=== PATIENT | male | born 1955 | race Caucasian/White ===

== ENCOUNTER 2022-04-27 19:10 | Observation (INO) | payer OTHER ==
[2022-04-27] MEDS ORDERED: ASPIRIN 81 MG CHEWABLE TABLET ONE (19:25)
[2022-04-27] MEDS ORDERED: NA CHLORIDE 0.9% 1,000 ML ONE (19:25)
[2022-04-27 20:10] LABS: Protime INR 1.11
[2022-04-27 20:12] LABS: Absolute Lymphocytes (CBC) 1.4 K/uL (0.7-4.9); Hematocrit 49.3 % (39.6-49.0); Lymphocytes % 16.7 % (15.3-44.8); MCV 94.8 fL (80-100); MPV 7.7 fL (7.6-11.3); RBC Red Blood Cell Count 5.19 M/uL (4.33-5.43)
[2022-04-27 20:14] LABS: SARS-CoV-2 Antigen Rapid Res Negative (Negative)
[2022-04-27 20:21] LABS: Albumin 3.7 g/dL (3.4-5.0); Bilirubin Direct 0.2 mg/dL (0-0.2); Bilirubin Total 0.7 mg/dL (0.2-1.0); Magnesium 2.1 mg/dL (1.8-2.4); Potassium 3.6 mmol/L (3.5-5.1); Troponin High Sensitivity 20.1 pg/mL (<58.9)
[2022-04-27] MEDS ORDERED: Magnesium Sulfate 2gm IVPB 2 G/50 ML BAG IV ONE (21:02)
--- NOTE | 2022-04-27 21:11 | RAD REPORT ---
EXAM DESCRIPTION: RAD - Chest Single View - 04/27/2022 9:04 pm CLINICAL HISTORY: CHEST PAIN Chest pain. COMPARISON: No comparisons FINDINGS: Portable technique limits examination quality. The lungs are grossly clear. The heart is mildly prominent in size. No displaced fractures.Sternotomy wires. Single lead pacer/defibrillator device noted. IMPRESSION: No acute intrathoracic process suspected.
--- NOTE | 2022-04-27 21:30 | ER ---
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 Coronavirus screen: Vaccine status: Patient reports receiving the 2nd dose of the covid vaccine. Client denies travel out of the [place] in the last 14 days. Ebola Screen: Patient negative for fever greater than or equal to 101.5 degrees Fahrenheit, and additional compatible Ebola Virus Disease symptoms Patient denies exposure to infectious person. Patient denies travel to an Ebola-affected area in the 21 days before illness onset. Initial Sepsis Screen: Does the patient meet any 2 criteria? No. Patient's initial sepsis screen is negative. Does the patient have a suspected source of infection? No. Patient's initial sepsis screen is negative. Risk Assessment: Do you want to hurt yourself or someone else? Patient reports no desire to harm self or others. Onset of symptoms was April 27, 2022. 19:13 Method Of Arrival: Ambulatory [facility] 19:13 Acuity: COOPER 2 jh5 Triage Assessment: 19:15 General: Appears in no apparent distress. uncomfortable, slender, well groomed, [facility] Behavior is calm, cooperative, appropriate for age. Pain: Denies pain. Historical: - Allergies: 19:15 No Known Allergies; jh5 - PMHx: 19:15 Hypertensive disorder; defibrillator / pacemaker; HLD; jh5 - Immunization history:: Adult Immunizations up to date. - Social history:: Smoking status: Patient denies any tobacco usage or history of. - Family history:: not pertinent. Screenin:43 Abuse screen: Denies threats or abuse. Denies injuries from another. Nutritional lg3 screening: No deficits noted. Tuberculosis screening: No symptoms or risk factors identified. Fall Risk None identified. Assessment: 19:43 General: Appears in no apparent distress. comfortable, Behavior is calm, cooperative. lg3 Pain: Denies pain. Neuro: No deficits noted. Level of Consciousness is awake, alert, obeys commands, Oriented to person, place, time, situation, Gait is steady, Speech is normal, Facial symmetry appears normal. Cardiovascular: Reports felling "off/funny" Denies chest pain, Capillary refill < 3 seconds Clubbing of nail beds is absent JVD is absent Patient's skin is warm and dry. Rhythm is sinus rhythm. Respiratory: No deficits noted. Airway is patent Trachea midline Respiratory effort is even, unlabored, Respiratory pattern is regular, symmetrical, Breath sounds are clear bilaterally. GI: No deficits noted. No signs and/or symptoms were reported involving the gastrointestinal system. Bowel sounds present X 4 quads. : No deficits noted. No signs and/or symptoms were reported regarding the genitourinary system. EENT: No deficits noted. No signs and/or symptoms were reported regarding the EENT system. Derm: No deficits noted. No signs and/or symptoms reported regarding the dermatologic system. Skin is intact, is healthy with good turgor, Skin is dry, Skin is normal, Skin temperature is warm. Musculoskeletal: No deficits noted. No signs and/or symptoms reported regarding the musculoskeletal system. Circulation, motion, and sensation intact. Range of motion: intact in all extremities. 21:09 Reassessment: Patient appears in no apparent distress at this time. No changes from lg3 previously documented assessment. Patient and/or family updated on plan of care and expected duration. Pain level reassessed. Patient is alert, oriented x 3, equal unlabored respirations, skin warm/dry/pink. Vital Signs: 19:13 BP 173 / 102; Pulse 76; Resp 18; Temp 98.6; Pulse Ox 100% ; Weight 81.65 kg; Height 5 [facility] ft. 2 in. (157.48 cm); Pain 0/10; 19:46 BP 159 / 85; Pulse 70; Resp 16 S; Pulse Ox 99% on R/A; lg3 21:09 BP 129 / 82; Pulse 70; Resp 18 S; Pulse Ox 99% on R/A; lg3 19:13 Body Mass Index 32.92 (81.65 kg, 157.48 cm) jh5 ED Course: 19:13 Patient arrived in ED. dt4 19:15 Triage completed. 5 19:15 Arm band placed on right wrist. [facility] 19:21 Abdulkadir Valerio MD is Attending Physician. [facility] 19:43 Patient has correct armband on for positive identification. Placed in gown. Bed in low lg3 position. Call light in reach. Side rails up X 1. Client placed on continuous cardiac and pulse oximetry monitoring. NIBP monitoring applied. shelter monitor on. Door closed. Noise minimized. Warm blanket given. Family accompanied patient. 21:08 Taylor Leon, RN is Primary Nurse. lg3 21:08 Inserted saline lock: 20 gauge in right wrist, using aseptic technique. Blood collected.3 21:26 Reinaldo Reddy MD is Hospitalizing Provider. [facility] 23:06 No provider procedures requiring assistance completed. Patient admitted, IV remains in lg3 place. intact, No redness/swelling at site. Administered Medications: 19:47 Drug: Aspirin Chewable Tablet 324 mg Route: PO; lg3 21:08 Drug: NS 0.9% 1000 ml Route: IV; Rate: 75 ml/hr; Site: right wrist; lg3 21:08 Drug: Magnesium Sulfate 2 grams Route: IVPB; Infused Over: 2 hrs; Site: right wrist; lg3 Medication: 23:07 VIS not applicable for this client. lg3 Outcome: 21:29 Decision to Hospitalize by Provider. [facility] 23:06 Admitted to ER Hold. Please see [facility] for further documentation. lg3 23:06 Condition: stable 23:06 Instructed on the need for admit, Demonstrated understanding of instructions. 04/28 09:45 Patient left the ED. mb8 Signatures: Abdulkadir Valerio MD MD cha Gibson, Lacie, RN RN 3 Keri Bocanegra, RN RN 5 Cornelius Cardenas RN RN mb8 Eboni Rogers dt4
--- NOTE | 2022-04-27 21:30 | EDPHYS ---
Physician Documentation [facility] Name: Sacha Jones Age: 66 yrs Sex: Male : 1955 Arrival Date: 04/27/2022 Time: 19: Bed 18 Private MD: ED Physician Abdulkadir Valerio HPI: 04/27 21:21 This 66 yrs old Male presents to ER via Ambulatory with complaints of Chest makayla Pain. 21:21 The patient or guardian reports chest pain that is located primarily in the substernal makayla area, defibrillator discharge. Onset: just prior to arrival. The pain does not radiate. Associated signs and symptoms: Pertinent positives: dizziness. The chest pain is described as aching. Modifying factors: The symptoms are alleviated by nothing. the symptoms are aggravated by nothing. Severity of pain: At its worst the pain was mild in the emergency department the pain is unchanged. The patient has not experienced similar symptoms in the past. Historical: - Allergies: 19:15 No Known Allergies; jh5 - PMHx: 19:15 Hypertensive disorder; defibrillator / pacemaker; HLD; 5 - Immunization history:: Adult Immunizations up to date. - Social history:: Smoking status: Patient denies any tobacco usage or history of. - Family history:: not pertinent. ROS: 21:21 Constitutional: Negative for fever, chills, and weight loss, Eyes: Negative for injury, makayla pain, redness, and discharge, ENT: Negative for injury, pain, and discharge, Neck: Negative for injury, pain, and swelling, Cardiovascular: Negative for chest pain, palpitations, and edema, Respiratory: Negative for shortness of breath, cough, wheezing, and pleuritic chest pain, Abdomen/GI: Negative for abdominal pain, nausea, vomiting, diarrhea, and constipation, Back: Negative for injury and pain, : Negative for injury, bleeding, discharge, and swelling, MS/Extremity: Negative for injury and deformity, Skin: Negative for injury, rash, and discoloration, Psych: Negative for depression, anxiety, suicide ideation, homicidal ideation, and hallucinations, Allergy/Immunology: Negative for hives, rash, and allergies, Endocrine: Negative for neck swelling, polydipsia, polyuria, polyphagia, and marked weight changes, Hematologic/Lymphatic: Negative for swollen nodes, abnormal bleeding, and unusual bruising. 21:21 Neuro: Positive for dizziness. Exam: 21:21 Constitutional: This is a well developed, well nourished patient who is awake, alert, makayla and in no acute distress. Head/Face: Normocephalic, atraumatic. Eyes: Pupils equal round and reactive to light, extra-ocular motions intact. Lids and lashes normal. Conjunctiva and sclera are non-icteric and not injected. Cornea within normal limits. Periorbital areas with no swelling, redness, or edema. ENT: Nares patent. No nasal discharge, no septal abnormalities noted. Tympanic membranes are normal and external auditory canals are clear. Oropharynx with no redness, swelling, or masses, exudates, or evidence of obstruction, uvula midline. Mucous membranes moist. Neck: Trachea midline, no thyromegaly or masses palpated, and no cervical lymphadenopathy. Supple, full range of motion without nuchal rigidity, or vertebral point tenderness. No Meningismus. Chest/axilla: Normal chest wall appearance and motion. Nontender with no deformity. No lesions are appreciated. Cardiovascular: Regular rate and rhythm with a normal S1 and S2. No gallops, murmurs, or rubs. Normal PMI, no JVD. No pulse deficits. Respiratory: Lungs have equal breath sounds bilaterally, clear to auscultation and percussion. No rales, rhonchi or wheezes noted. No increased work of breathing, no retractions or nasal flaring. Abdomen/GI: Soft, non-tender, with normal bowel sounds. No distension or tympany. No guarding or rebound. No evidence of tenderness throughout. Back: No spinal tenderness. No costovertebral tenderness. Full range of motion. Male : Normal genitalia with no discharge or lesions. Skin: Warm, dry with normal turgor. Normal color with no rashes, no lesions, and no evidence of cellulitis. MS/ Extremity: Pulses equal, no cyanosis. Neurovascular intact. Full, normal range of motion. Neuro: Awake and alert, GCS 15, oriented to person, place, time, and situation. Cranial nerves II-XII grossly intact. Motor strength 5/5 in all extremities. Sensory grossly intact. Cerebellar exam normal. Normal gait. Psych: Awake, alert, with orientation to person, place and time. Behavior, mood, and affect are within normal limits. 21:41 ECG was reviewed by the Attending Physician. makayla 04/28 06:04 ECG was reviewed by the Attending Physician. [facility] Vital Signs: 04/27 19:13 BP 173 / 102; Pulse 76; Resp 18; Temp 98.6; Pulse Ox 100% ; Weight 81.65 kg; Height 5 5 ft. 2 in. (157.48 cm); Pain 0/10; 19:46 BP 159 / 85; Pulse 70; Resp 16 S; Pulse Ox 99% on R/A; lg3 21:09 BP 129 / 82; Pulse 70; Resp 18 S; Pulse Ox 99% on R/A; lg3 19:13 Body Mass Index 32.92 (81.65 kg, 157.48 cm) 5 MDM: 19:21 Patient medically screened. [facility] 21:23 Differential diagnosis: abnormal EKG, acute myocardial infarction, acute pericarditis, makayla anxiety, chest wall pain, Cholelithiasis hiatal hernia, pancreatitis, peptic ulcer disease, pericarditis, stable angina, unstable angina. HEART Score: History: Slightly Suspicious (0), ECG: Non specific repolarization disturbance / LBTB / PM (1), Age: > or = 65 years (2), Risk Factors: > or = 3 Risk factors for atherosclerotic disease (2), [Hypercholesterolemia] [Hypertension] [+ Family HX] Troponin: < or = 1 x Normal Limit (0). The patient was given aspirin in the Emergency Department. The patient's deep vein thrombosis risk score was calculated as follows: Total Score: 0. This patient was found to be at low risk for a deep vein thrombosis by using the Well's assessment criteria. The patient's pulmonary embolism risk score was calculated as follows: Total Score: 0-2 points. This patient was found to be at low risk for a pulmonary embolism by using the Well's assessment criteria. BRENDA Risk Score: 1 - patient's age is greater or equal to 65 years, 1 - Three or more CAD risk factors, 1- Known CAD, 1 - ASA use in past 7 days, TOTAL SCORE = 4. Data reviewed: vital signs, nurses notes, lab test result(s), EKG, radiologic studies, plain films. Data interpreted: environmental monitoring technician: rate is 70 beats/min, rhythm is regular, Pulse oximetry: on room air is 99 %. Test interpretation: by ED physician or midlevel provider: ECG, plain radiologic studies. Counseling: I had a detailed discussion with the patient and/or guardian regarding: the historical points, exam findings, and any diagnostic results supporting the discharge/admit diagnosis, lab results, radiology results, the need for further work-up and treatment in the hospital. Physician consultation: Sagar Nuno MD and will see patient in inpatient room, interrogate in am ok. 04/27 19:22 Order name: Basic Metabolic Panel; Complete Time: 21:00 [facility] 04/27 19:22 Order name: CBC with Diff; Complete Time: 21:00 [facility] 04/27 19:22 Order name: LFT's; Complete Time: 21:00 [facility] 04/27 19:22 Order name: Magnesium; Complete Time: 21:00 [facility] 04/27 19:22 Order name: NT PRO-BNP; Complete Time: 21:00 [facility] 04/27 19:22 Order name: PT-INR; Complete Time: 21:00 [facility] 04/27 19:22 Order name: Troponin HS; Complete Time: 21:00 [facility] 04/27 19:22 Order name: XRAY Chest (1 view) [facility] 04/27 19:22 Order name: SARS RAPID; Complete Time: 21:00 [facility] 04/27 19:22 Order name: Lipase; Complete Time: 21:00 [facility] 04/27 21:11 Order name: RAD; Complete Time: 21:29 [facility] 04/28 04:37 Order name: CBC with Automated Diff [facility] 04/28 04:54 Order name: Basic Metabolic Panel [facility] 04/28 07:20 Order name: RAD [facility] 04/27 19:22 Order name: EKG; Complete Time: 19:24 [facility] 04/27 19:22 Order name: Cardiac monitoring; Complete Time: 19:46 [facility] 04/27 19:22 Order name: EKG - Nurse/Tech; Complete Time: 19:46 [facility] 04/27 19:22 Order name: IV Saline Lock; Complete Time: 19:46 [facility] 04/27 19:22 Order name: Labs collected and sent; Complete Time: 19:47 [facility] 04/27 19:22 Order name: O2 Per Protocol; Complete Time: 19:47 [facility] 04/27 19:22 Order name: O2 Sat Monitoring; Complete Time: 19:47 [facility] EC:41 Rate is 67 beats/min. Rhythm is regular. QRS [place] is Normal. NM interval is prolonged makayla at 228 msec. QRS interval is normal. QT interval is normal. No Q waves. T waves are Normal. No ST changes noted. Clinical impression: NSR w/ Non-specific ST/T Changes, 1st degree heart block, and No evidence of ischemia. Interpreted by me. Reviewed by me. 04/28 06:04 Rate is 52 beats/min. Rhythm is regular. QRS [place] is Normal. NM interval is normal. QRS makayla interval is normal. QT interval is normal. No Q waves. T waves are Normal. No ST changes noted. Clinical impression: 1st degree heart block and Sinus bradycardia. Interpreted by me. Reviewed by me. Administered Medications: 04/27 19:47 Drug: Aspirin Chewable Tablet 324 mg Route: PO; lg3 21:08 Drug: NS 0.9% 1000 ml Route: IV; Rate: 75 ml/hr; Site: right wrist; lg3 21:08 Drug: Magnesium Sulfate 2 grams Route: IVPB; Infused Over: 2 hrs; Site: right wrist; lg3 Disposition Summary: 04/27/22 21:29 Hospitalization Ordered Hospitalization Status: Observation makayla Provider: Reinaldo Reddy makayla Condition: Fair makayla Problem: new makayla Symptoms: have improved makayla Bed/Room Type: Standard makayla Location: [facility] ER HOLD(04/27/22 22:13) Room Assignment: ERHOLD-(04/27/22 22:13) cg Diagnosis - Presence of cardiac pacemaker - defibrillator discharged x1 makayla - Chronic kidney disease, unspecified makayla - Encounter for adjustment and management of automatic implantable cardiac makayla defibrillator - Presence of automatic (implantable) cardiac defibrillator makayla Forms: - Medication Reconciliation Form makayla - SBAR form makayla Signatures: Dispatcher [employer] Abdulkadir Cool MD MD cha Garcia, Cindy, RN RN Taylor Helms RN RN lg3 Keri Bocanegra RN RN jh5 Corrections: (The following items were deleted from the chart) 21:29 Telemetry/MedSurg (observation) makayla : 21:29 makayla
[2022-04-27] MEDS ORDERED: ACETAMINOPHEN 325 MG TABLET PO PRN (23:09)
[2022-04-27] MEDS ORDERED: MORPHINE 2 MG/ML SYR IV PRN (23:09)
[2022-04-27] MEDS ORDERED: ONDANSETRON 4 MG/2 ML VIAL IV PRN (23:09)
[2022-04-27 23:23] VITALS: BMI 32.9
[2022-04-28 00:14] VITALS: O2SAT 100
[2022-04-28] MEDS ORDERED: carvediloL 6.25 MG TAB ONE (04:16)
[2022-04-28 04:36] LABS: Absolute Lymphocytes (CBC) 1.8 K/uL (0.7-4.9); Hematocrit 45.2 % (39.6-49.0); Lymphocytes % 23.5 % (15.3-44.8); MPV 7.2 fL (7.6-11.3); RBC Red Blood Cell Count 4.71 M/uL (4.33-5.43)
[2022-04-28 04:54] LABS: Potassium 3.5 mmol/L (3.5-5.1)
[2022-04-28] MEDS ORDERED: carvediloL 12.5 MG TAB PO SCH (06:00)
--- NOTE | 2022-04-28 07:20 | RAD REPORT ---
EXAM DESCRIPTION: RAD - Chest Single View - 04/28/2022 5:44 am CLINICAL HISTORY: Chest Pain COMPARISON: <Comparisons> FINDINGS: Lines: Pacemaker. . Lungs: No evidence of edema or pneumonia. Pleural: No significant pleural effusions or pneumothorax. Cardiac: Similar size and configuration. Mediastinum: Within normal limits. Bones: No acute fractures.Sternotomy Other: None IMPRESSION: No acute cardiopulmonary disease.
[2022-04-28] MEDS ORDERED: PNEUMOCOCCAL VACCINE 0.5 ML IMVAC ONE (08:00)
[2022-04-28 08:19] VITALS: BP 131/73; TEMP 97.9
[2022-04-28] MEDS ORDERED: ASPIRIN 81 MG CHEWABLE TABLET PO SCH (09:00)
[2022-04-28] MEDS ORDERED: AMIODARONE HCL 200 MG TAB PO SCH (09:00)
[2022-04-28] MEDS ORDERED: SACUBITRIL/VALSARTAN 49/51 MG TAB PO SCH (09:00)
[2022-04-28] MEDS ORDERED: ASPIRIN EC 81 MG TAB PO SCH (09:00)
[2022-04-28] MEDS ORDERED: FAMOTIDINE 20 MG/2 ML VIAL IV SCH (09:00)
--- NOTE | 2022-04-28 11:39 | EKG ---
Test Date: 2022-04-28 Test Time: 05:44:51 Welder Apprentice: DEZ MEASUREMENT RESULTS: Intervals: Rate: 52 MI: 240 QRSD: 148 QT: 510 QTc: 474 [place]: P: 66 MI: 240 QRS: -2 T: -80 INTERPRETIVE STATEMENTS: Sinus bradycardia with 1st degree AV block Nonspecific intraventricular block Abnormal ECG Compared to ECG 04/27/2022 19:38:28 Sinus rhythm no longer present Electronically Signed On 04-28-22 11:38:45 CDT by Sagar Nuno
--- NOTE | 2022-04-28 11:41 | EKG ---
Test Date: 2022-04-27 Test Time: 19:38:28 Medical Anthropology Director: SINDI MEASUREMENT RESULTS: Intervals: Rate: 67 SD: 228 QRSD: 164 QT: 440 QTc: 464 [place]: P: 68 SD: 228 QRS: -18 T: 78 INTERPRETIVE STATEMENTS: Sinus rhythm with 1st degree AV block Nonspecific intraventricular block Abnormal ECG No previous ECG available for comparison Electronically Signed On 04-28-22 11:38:52 CDT by Sagar Nuno
--- NOTE | 2022-04-28 13:50 | P.SSS ---
Patient History Date of Service: 04/28/22 Reason for admission: DEFIB SHOCK History of Present Illness: MR. OTTO HAS HAD V TACHYCARDIA AND D FIB SHOCK AFTER HE ATE [employer]. THIS HAS HAPPENED BEFORE. HE WILL NOW QUIT [employer]. HE WILL FU WITH DR. BHATTI. HE RAISED HIS AMIODARONE AND COREG. HE IS STABLE FOR DISCHARGE. Allergies No Known Allergies Allergy (Verified 04/27/22 23:09) Home Medications: Amiodarone HCl [Cordarone*] 200 mg PO DAILY #30 tab 04/28/22 Sacubitril/Valsartan [Entresto 49 mg-51 mg Tablet] 1 tab PO BID tab 04/28/22 carvediloL [Coreg*] 12.5 mg PO BID 6AM 6PM #180 tab 04/28/22 - Past Medical/Surgical History Has patient received pneumonia vaccine in the past: No - Social History Smoking Status: Never smoker Alcohol use: No CD- Drugs: No Caffeine use: No Place of Residence: Home Physical Examination - Vital Signs Temperature: 97.9 F Blood Pressure: 131/73 Pulse: 57 Respirations: 20 Pulse Ox (%): 93 - Physical Exam General: Alert, In no apparent distress HEENT: Atraumatic, PERRLA, Mucous membr. moist/pink, EOMI, Sclerae nonicteric Neck: Supple, 2+ carotid pulse no bruit, No LAD, Without JVD or thyroid abnormality Respiratory: Clear to auscultation bilaterally, Normal air movement Cardiovascular: Regular rate/rhythm, Normal S1 S2 Gastrointestinal: Normal bowel sounds, No tenderness Musculoskeletal: No tenderness Integumentary: No rashes Neurological: Normal gait, Normal speech, Normal strength at 5/5 x4 extr, Normal tone, Normal affect Lymphatics: No axilla or inguinal lymphadenopathy - Studies Laboratory Data (last 24 hrs) 04/27/22 19:45: PT 12.2, INR 1.11 04/27/22 19:45: WBC 8.10, Hgb 16.9, Hct 49.3 H, Plt Count 185 04/27/22 19:45: Sodium 139, Potassium 3.6, BUN 26 H, Creatinine 2.08 H, Glucose 103, Magnesium 2.1, Total Bilirubin 0.7, AST 20, ALT 32, Alkaline Phosphatase 58, Lipase 96 - Diagnosis (Problem(s)) (1) Defibrillator discharge Current Visit: Yes Status: Acute Plan: ABOVE HEIS STABLE. MEDS CHANGED. QUIT ALL [employer]ODUCTS. SOMEHOW IT IS TRIGGERING HIS v TACH. - Disposition Disposition: ROUTINE DISCHARGE Condition: FAIR
[2022-04-29] MEDS ORDERED: FAMOTIDINE 20 MG/2 ML VIAL IV SCH (09:00)
--- NOTE | 2022-04-30 15:58 | CON ---
Date of Consultation: 04/28/2022 Reason For Consultation: AICD discharge. History Of Present Illness: Mr. Hook is 66. Has a history of AICD placement, came in with vaarg e. Did not have any chest pain prior to the event. Did not have any syncope after the event. Did n ot have any nausea or vomiting or diaphoresis. Denied PND, orthopnea, palpitation, or syncope. He s aid this is the second time this has happened to him after eating [employer]. He is now asymptomatic. Past Medical History: Includes hypertension, dyslipidemia, AICD. Review of Systems: Negative. Social History: Negative. Allergies: NONE. Medications: Include amiodarone and Coreg. Physical Examination: Vital Signs: His pulse was 47. Vital signs stable General: No acute distress. HEENT: Negative. Neck: Supple with no bruit. Chest: Clear. Cardiac: Revealed regular rhythm and rate. No murmurs, gallops, or rubs. Abdomen: Benign. Extremities: Revealed no clubbing, cyanosis, or edema. Diagnostic Data: All within normal. Chest x-ray is negative. Impression And Plan: 1.Hypertension. 2.Dyslipidemia. 3.Status post AICD discharge. I would increase his amiodarone, increase his Coreg, check the defibr illator, I am sure this is probably ventricular tachycardia. Hopefully, the increase in amiodarone a nd Coreg would help. He can go home after checking his AICD and I will see him in the office soon. JENNIFER/PATRICE Voice ID: [id number] Report ID: [id number]
== END 2022-04-29 00:09 | disposition home or self-care (01) ==
LOC: ER 19:10 → ERHOLD 21:31
PROVIDERS: ADMIT Internal Medicine; ATTEND Internal Medicine
DX: I47.20 Ventricular tachycardia, unspecified (principal); N18.9 Chronic kidney disease, unspecified; I10 Essential (primary) hypertension; E78.5 Hyperlipidemia, unspecified; Z20.822 Contact with and (suspected) exposure to COVID-19; Z95.810 Presence of automatic (implantable) cardiac defibrillator
CPT/HCPCS: 36415; 71045; 80048; 80076; 83690; 83735; 83880; 84484; 85025; 85610; 87811; 93005; 96374; 99285; G0378; J3475; J7030

== ENCOUNTER 2022-05-03 17:41 | Observation (INO) | payer OTHER, MEDICARE ==
[2022-05-03 18:44] LABS: Albumin 3.7 g/dL (3.4-5.0); Bilirubin Direct 0.3 mg/dL (0-0.2); Bilirubin Total 1.1 mg/dL (0.2-1.0); Magnesium 1.9 mg/dL (1.8-2.4); Potassium 3.6 mmol/L (3.5-5.1); Troponin High Sensitivity 16.2 pg/mL (<58.9)
[2022-05-03] MEDS ORDERED: ASPIRIN 81 MG CHEWABLE TABLET ONE (18:44)
[2022-05-03 18:51] LABS: Absolute Lymphocytes (CBC) 1.3 K/uL (0.7-4.9); Hematocrit 49.5 % (39.6-49.0); Lymphocytes % 11.2 % (15.3-44.8); MCV 95.4 fL (80-100); MPV 7.6 fL (7.6-11.3); RBC Red Blood Cell Count 5.19 M/uL (4.33-5.43)
--- NOTE | 2022-05-03 18:51 | RAD REPORT ---
EXAM DESCRIPTION: RAD - Chest Single View - 05/03/2022 6:44 pm CLINICAL HISTORY: CHEST PAIN Chest pain. COMPARISON: Chest Single View dated 04/28/2022; Chest Single View dated 04/27/2022 FINDINGS: Portable technique limits examination quality. The lungs are grossly clear. The heart is mildly prominent with changes of a prior CABG. No displaced fractures.Sternotomy wires. IMPRESSION: No acute intrathoracic process suspected.
[2022-05-03 19:12] LABS: Protime INR 0.8
--- NOTE | 2022-05-03 20:40 | ER ---
Nurse's Notes [facility] Name: Sacha Jones Age: 66 yrs Sex: Male : 1955 Arrival Date: 05/03/2022 Time: 17:45 Bed 30 Private MD: Diagnosis: Chest pain, unspecified;Hypertensive heart disease without heart failure Presentation: 05/03 17:45 Chief complaint: EMS states: CHEST PRESSURE AND HTN. Coronavirus screen: At this time, bp the client does not indicate any symptoms associated with coronavirus-19. Ebola Screen: No symptoms or risks identified at this time. Initial Sepsis Screen: Does the patient meet any 2 criteria? No. Patient's initial sepsis screen is negative. Does the patient have a suspected source of infection? No. Patient's initial sepsis screen is negative. Risk Assessment: Do you want to hurt yourself or someone else? Patient reports no desire to harm self or others. Onset of symptoms was May 03, 2022 at 16:00. Care prior to arrival: IV initiated. 18 GA, in the left antecubital area. 17:45 Method Of Arrival: EMS: [facility] bp 17:45 Acuity: COOPER 2 bp Triage Assessment: 17:46 General: Appears in no apparent distress. uncomfortable, Behavior is cooperative, bp appropriate for age, anxious. Pain: Complains of pain in chest. EENT: No deficits noted. Neuro: No deficits noted. Cardiovascular: Rhythm is sinus rhythm. Respiratory: No deficits noted. GI: No signs and/or symptoms were reported involving the gastrointestinal system. : No signs and/or symptoms were reported regarding the genitourinary system. Derm: No deficits noted. Musculoskeletal: No deficits noted. Historical: - Allergies: 17:46 No Known Allergies; bp - Home Meds: 17:46 aspirin 81 mg Oral tab 81 mg daily [Active]; amiodarone 200 mg Oral tab 1 tab once bp daily [Active]; carvedilol 12.5 mg oral tab 1 tab 2 times per day [Active]; hydralazine 25 mg Oral tab 1 tab 2 times per day [Active]; simvastatin 10 mg Oral tab 1 tab once daily [Active]; eplerenone 25 mg oral tab 1 tab once daily [Active]; Entresto 97-103 mg oral tab 1 tab 2 times per day [Active]; - PMHx: 17:46 defibrillator / pacemaker; HLD; Hypertensive disorder; bp - Immunization history:: Adult Immunizations up to date. - Social history:: Smoking status: Patient denies any tobacco usage or history of. Screenin:49 Abuse screen: Denies threats or abuse. Denies injuries from another. Nutritional bp screening: No deficits noted. Tuberculosis screening: No symptoms or risk factors identified. Fall Risk None identified. Assessment: 17:49 General: SEE TRIAGE NOTE. bp 19:00 Reassessment: No changes from previously documented assessment. Patient and/or family bp updated on plan of care and expected duration. Pain level reassessed. 20:02 Reassessment: No changes from previously documented assessment. Patient and/or family vc1 updated on plan of care and expected duration. Pain level reassessed. 20:27 General: "I'm feeling better. everything seems normal" . as6 Vital Signs: 17:45 BP 192 / 89; Pulse 75; Resp 16; Temp 98.1; Pulse Ox 100% ; bp 19:00 BP 131 / 75; Pulse 65; Resp 16; Pulse Ox 100% ; bp 20:01 BP 118 / 77; Pulse 66; Resp 12; Pulse Ox 98% on R/A; vc1 20:27 BP 116 / 71; Pulse 65; Resp 17 S; Pulse Ox 100% on R/A; as6 21:46 BP 131 / 82; Pulse 67; Resp 12 S; Pulse Ox 97% on R/A; as6 ED Course: 17:45 Patient arrived in ED. bp 17:46 Triage completed. bp 17:46 Arm band placed on. bp 17:47 Abdulkadir Cuevas PA is PHCP. cp 17:47 Abdulkadir Valerio MD is Attending Physician. cp 17:49 Patient has correct armband on for positive identification. Bed in low position. Call bp light in reach. Side rails up X2. Client placed on continuous cardiac and pulse oximetry monitoring. NIBP monitoring applied. 17:49 Maintain EMS IV. Dressing intact. Good blood return noted. Site clean \\T\\ dry. Gauge \\T\\ bp site: 18 GA LEFT AC. Patient maintains SpO2 saturation greater than 95% on room air. 17:50 Roberto Sosa, GEORGIE is Primary Nurse. bp 18:46 XRAY Chest (1 view) In Process Unspecified. EDMS 19:05 Primary Nurse role handed off by Roberto Sosa, GEORGIE mw2 20:27 Shawn Avina, GEORGIE is Primary Nurse. as6 20:38 Reinaldo Reddy MD is Hospitalizing Provider. cp 05/04 00:19 No provider procedures requiring assistance completed. Patient admitted, IV remains in as6 place. 08:10 Primary Nurse role handed off by Shawn Avina, GEORGIE em1 Administered Medications: 05/03 18:45 Drug: Aspirin Chewable Tablet 324 mg Route: PO; bp 05/04 00:20 Follow up: Response: No adverse reaction as6 05/03 20:43 CANCELLED (Physician Discretion): HydrALAZINE 50 mg PO once cp 20:44 Drug: HydrALAZINE 25 mg Route: PO; vc1 05/04 00:20 Follow up: Response: No adverse reaction as6 Medication: 05/03 17:49 VIS not applicable for this client. bp Outcome: 20:38 Decision to Hospitalize by Provider. cp 05/04 00:19 Admitted to ER Hold. Please see [facility] for further documentation. as6 Condition: stable Instructed on the need for admit. 11:07 Patient left the ED. em1 Signatures: Dispatcher [employer] [facility] Samuel Hall em1 Abdulkadir Cuevas PA PA cp Roberto Sosa, RN RN bp Zoie Archuleta mw2 Shawn Avina RN RN as6 Britany Reese RN RN vc1
--- NOTE | 2022-05-03 20:40 | EDPHYS ---
Physician Documentation [facility] Name: Sacha Jones Age: 66 yrs Sex: Male : 1955 Arrival Date: 05/03/2022 Time: 17:45 Bed 30 Private MD: ED Physician Abdulkadir Valerio HPI: 05/03 18:03 This 66 yrs old Male presents to ER via EMS with complaints of Chest Pain. cp 18:03 The patient or guardian reports chest pain that is located primarily in the anterior cp chest wall, left. Onset: today. 18:03 The pain does not radiate. Associated signs and symptoms: Pertinent positives: elevated cp blood pressure, Pertinent negatives: abdominal pain, diaphoresis, dizziness, recent travel, shortness of breath. 18:03 The chest pain is described as aching. Duration: The patient or guardian reports a cp single episode, that is still ongoing. Historical: - Allergies: 17:46 No Known Allergies; bp - Home Meds: 17:46 aspirin 81 mg Oral tab 81 mg daily [Active]; amiodarone 200 mg Oral tab 1 tab once bp daily [Active]; carvedilol 12.5 mg oral tab 1 tab 2 times per day [Active]; hydralazine 25 mg Oral tab 1 tab 2 times per day [Active]; simvastatin 10 mg Oral tab 1 tab once daily [Active]; eplerenone 25 mg oral tab 1 tab once daily [Active]; Entresto 97-103 mg oral tab 1 tab 2 times per day [Active]; - PMHx: 17:46 defibrillator / pacemaker; HLD; Hypertensive disorder; bp - Immunization history:: Adult Immunizations up to date. - Social history:: Smoking status: Patient denies any tobacco usage or history of. ROS: 18:05 Cardiovascular: Positive for chest pain, Negative for edema, palpitations. cp 18:05 Constitutional: Negative for body aches, chills, fever, poor PO intake. cp 18:05 Eyes: Negative for injury, pain, redness, and discharge. cp 18:05 ENT: Negative for drainage from ear(s), ear pain, sore throat, difficulty swallowing, difficulty handling secretions. 18:05 Respiratory: Negative for cough, shortness of breath, wheezing. 18:05 Abdomen/GI: Negative for abdominal pain, nausea, vomiting, and diarrhea. 18:05 Neuro: Negative for altered mental status, dizziness, headache, numbness, syncope, weakness. 18:05 All other systems are negative. Exam: 18:07 ECG was reviewed by the Attending Physician. cp 18:10 Constitutional: The patient appears in no acute distress, alert, awake, cp non-diaphoretic, non-toxic, well developed, well nourished. 18:10 Head/Face: Normocephalic, atraumatic. cp 18:10 Eyes: Periorbital structures: appear normal, Conjunctiva: normal, no exudate, no injection, Sclera: no appreciated abnormality, Lids and lashes: appear normal, bilaterally. 18:10 ENT: External ear(s): are unremarkable, Nose: is normal, Mouth: Lips: moist, Oral mucosa: pink and intact, moist, Posterior pharynx: Airway: no evidence of obstruction, patent. 18:10 Neck: ROM/movement: is normal, is supple, without pain, no range of motions limitations. 18:10 Chest/axilla: Inspection: normal, Palpation: is normal, no crepitus, no tenderness. 18:10 Cardiovascular: Rate: normal, Rhythm: regular, Edema: is not appreciated, JVD: is not appreciated. 18:10 Respiratory: the patient does not display signs of respiratory distress, Respirations: normal, no use of accessory muscles, no retractions, labored breathing, is not present, Breath sounds: are clear throughout, no decreased breath sounds, no stridor, no wheezing. 18:10 Abdomen/GI: Inspection: abdomen appears normal, Bowel sounds: active, all quadrants, Palpation: abdomen is soft and non-tender, in all quadrants. 18:10 Back: pain, is absent, ROM is normal. 18:10 Neuro: Orientation: to person, place \\T\\ time. Mentation: is normal, Motor: moves all fours, strength is normal, Sensation: is normal. Vital Signs: 17:45 BP 192 / 89; Pulse 75; Resp 16; Temp 98.1; Pulse Ox 100% ; bp 19:00 BP 131 / 75; Pulse 65; Resp 16; Pulse Ox 100% ; bp 20:01 BP 118 / 77; Pulse 66; Resp 12; Pulse Ox 98% on R/A; vc1 20:27 BP 116 / 71; Pulse 65; Resp 17 S; Pulse Ox 100% on R/A; as6 21:46 BP 131 / 82; Pulse 67; Resp 12 S; Pulse Ox 97% on R/A; as6 MDM: 17:58 Patient medically screened. makayla 19:00 Differential diagnosis: acute myocardial infarction, pericarditis, pneumonia, cp pneumothorax, pulmonary embolus, unstable angina. 20:37 Data reviewed: vital signs, nurses notes, lab test result(s), EKG, radiologic studies, cp plain films. Physician consultation: Reinaldo Reddy MD was contacted at 20:35, regarding admission, to the telemetry unit. patient's condition, wants hydralazine increased to 50 mg bid. 05/03 18:01 Order name: Basic Metabolic Panel; Complete Time: 19:42 cp 05/03 19:42 Interpretation: Normal except: GLUC 118; CRE 1.73; GFR 42. cp 05/03 18:01 Order name: CBC with Diff; Complete Time: 19:42 cp 05/03 19:42 Interpretation: Normal except: WBC 11.30; HCT 49.5; GILL% 74.8; LYM% 11.2; NEUT A 8.4. cp 05/03 18:01 Order name: LFT's; Complete Time: 19:42 cp 05/03 19:43 Interpretation: Normal except: AST 14; BILIT 1.1; BILID 0.3. cp 05/03 18:01 Order name: Magnesium; Complete Time: 19:42 cp 05/03 18:01 Order name: NT PRO-BNP; Complete Time: 19:42 cp 05/03 20:09 Interpretation: Abnormal: NT PRO-BNP 772. cp 05/03 18:01 Order name: PT-INR; Complete Time: 19:42 cp 05/03 18:01 Order name: Troponin HS; Complete Time: 19:42 cp 05/03 20:17 Interpretation: Reviewed. cp 05/03 18:17 Order name: Influenza Screen (a \\T\\ B); Complete Time: 19:42 cp 05/03 18:17 Order name: COVID-19 SARS RT PCR (Document "Date of Onset" if Symptomatic); Complete cp Time: 20:09 05/03 20:09 Interpretation: Reviewed. cp 05/03 21:12 Order name: Basic Metabolic Panel EDMS 05/03 21:12 Order name: Basic Metabolic Panel EDMS 05/03 21:12 Order name: CBC with Automated Diff EDMS 05/03 21:12 Order name: CBC with Automated Diff EDMS 05/03 21:12 Order name: Troponin High Sensitivity EDMS 05/03 18:01 Order name: XRAY Chest (1 view); Complete Time: 19:42 cp 05/03 19:43 Interpretation: Report review. cp 05/03 18:01 Order name: EKG; Complete Time: 18:03 cp 05/03 18:01 Order name: Cardiac monitoring; Complete Time: 18:12 cp 05/03 18:01 Order name: EKG - Nurse/Tech; Complete Time: 18:12 cp 05/03 18:01 Order name: IV Saline Lock; Complete Time: 18:36 cp 05/03 21:12 Order name: Regular EDMS 05/03 21:12 Order name: EKG Electrocardiogram EDMS 05/03 21:12 Order name: EKG Electrocardiogram EDMS 05/03 21:12 Order name: EKG Electrocardiogram EDMS 05/03 21:12 Order name: EKG Electrocardiogram EDMS 05/03 21:12 Order name: Troponin High Sensitivity EDMS 05/03 21:12 Order name: Troponin High Sensitivity EDMS 05/03 21:12 Order name: Troponin High Sensitivity EDMS 05/03 18:01 Order name: Labs collected and sent; Complete Time: 18:36 cp 05/03 18:01 Order name: O2 Per Protocol; Complete Time: 18:12 cp 05/03 18:01 Order name: O2 Sat Monitoring; Complete Time: 18:12 cp EC:07 Rate is 61 beats/min. Rhythm is regular. MT interval is normal. QRS interval is cp prolonged at 142 msec. QT interval is normal. Interpreted by me. Reviewed by me. Administered Medications: 18:45 Drug: Aspirin Chewable Tablet 324 mg Route: PO; bp 05/04 00:20 Follow up: Response: No adverse reaction as6 05/03 20:43 CANCELLED (Physician Discretion): HydrALAZINE 50 mg PO once cp 20:44 Drug: HydrALAZINE 25 mg Route: PO; vc1 05/04 00:20 Follow up: Response: No adverse reaction as6 Disposition Summary: 05/03/22 20:38 Hospitalization Ordered Hospitalization Status: Observation cp Provider: Maureen, Reinaldo cp Condition: Stable cp Problem: new cp Symptoms: have improved cp Bed/Room Type: Standard cp Location: [facility] ER HOLD(05/03/22 21:16) cg Room Assignment: ERHOLD-(05/03/22 21:16) cg Diagnosis - Chest pain, unspecified cp - Hypertensive heart disease without heart failure cp Forms: - Medication Reconciliation Form cp - SBAR form cp Addendum: 05/09/2022 03:55 Co-signature as Attending Physician, Abdulkadir Valerio MD I agree with the assessment and c casas plan of care. Signatures: Dispatcher [employer] EDVT Abdulkadir Valerio MD MD cha Page, Corey, PA PA cp Bee Delcid, RN RN cg Roberto Sosa RN RN bp Britany Reese RN RN vc1 Shawn Avina RN as6 Corrections: (The following items were deleted from the chart) 05/03 20:43 20:37 HydrALAZINE 50 mg PO once ordered. cp cp 21:16 20:38 Telemetry/MedSurg (observation) cp cg 21:16 20:38 cp cg
[2022-05-03] MEDS ORDERED: HYDRALAZINE HCL 25 MG TABLET ONE (20:41)
[2022-05-03] MEDS ORDERED: ONDANSETRON 4 MG/2 ML VIAL IV PRN (21:07)
[2022-05-04 00:23] VITALS: BMI 31.1
[2022-05-04 06:26] LABS: Absolute Lymphocytes (CBC) 1.2 K/uL (0.7-4.9); Hematocrit 46.1 % (39.6-49.0); Lymphocytes % 14.6 % (15.3-44.8); MCV 96.2 fL (80-100); MPV 7.2 fL (7.6-11.3); RBC Red Blood Cell Count 4.79 M/uL (4.33-5.43)
[2022-05-04] MEDS ORDERED: PNEUMOCOCCAL VACCINE 0.5 ML IMVAC ONE (08:00)
[2022-05-04] MEDS ORDERED: INFLUENZA VACCINE (for 6+ mo) 0.5 ML DOSE IMVAC ONE (08:00)
[2022-05-04] MEDS ORDERED: HYDRALAZINE HCL 25 MG TABLET PO SCH (09:00)
[2022-05-04] MEDS ORDERED: ASPIRIN EC 81 MG TAB PO SCH (09:00)
[2022-05-04 09:32] VITALS: O2SAT 97
[2022-05-04 10:38] VITALS: BP 122/73; TEMP 97.5
--- NOTE | 2022-05-04 12:51 | P.SSS ---
Patient History Date of Service: 05/04/22 Reason for admission: BP HIGH AND CHEST HEAVINESS History of Present Illness: IS A KNOWN PATIENT WITH CHF, CONGESTIVE CARDIOMYOPATHY, A FIB AND HAD BP WENT UP TO 170 SYSTOLIC . HE REPORTED TO ER. HE IS NOT SURE ABOUT THE PAIN OR PRESSURE HE HAS. HE HAS NO PAIN ANY LONGER. HIS BP IS NORMAL AND HE IS WANTING TO GO HOME WITH FU WITH DR. BHATTI. I AGREE. I WAS UNDER IMPRESSION THAT HE WAS ON 25 MG BID OF HYDRALAZINE BUT HE WAS ON 10 MG BID SO HE WILL RAISE TO 25 MG PO BID. Allergies No Known Allergies Allergy (Verified 04/27/22 23:09) Home Medications: Amiodarone HCl [Cordarone*] 200 mg PO DAILY #30 tab 04/28/22 Sacubitril/Valsartan [Entresto 49 mg-51 mg Tablet] 1 tab PO BID tab 04/28/22 carvediloL [Coreg*] 12.5 mg PO BID 6AM 6PM #180 tab 04/28/22 Hydralazine [Apresoline*] 50 mg PO BID #0 tab 05/04/22 - Past Medical/Surgical History Has patient received pneumonia vaccine in the past: No Diabetic: No -: HTN -: high cholesterol -: pacemaker - Social History Smoking Status: Never smoker Alcohol use: No CD- Drugs: No Caffeine use: No Review of Systems 10-point ROS is otherwise unremarkable Physical Examination - Vital Signs Temperature: 97.5 F Blood Pressure: 122/73 Pulse: 66 Respirations: 17 Pulse Ox (%): 98 - Physical Exam General: In no apparent distress, Oriented x3 HEENT: Atraumatic, PERRLA, Mucous membr. moist/pink, EOMI, Sclerae nonicteric Neck: Supple, 2+ carotid pulse no bruit, No LAD, Without JVD or thyroid abnorm ality Respiratory: Clear to auscultation bilaterally, Normal air movement Cardiovascular: Regular rate/rhythm, Normal S1 S2 Gastrointestinal: Normal bowel sounds, No tenderness Musculoskeletal: No tenderness Integumentary: No rashes Neurological: Normal gait, Normal speech, Normal strength at 5/5 x4 extr, Normal tone, Normal affect Lymphatics: No axilla or inguinal lymphadenopathy - Studies Laboratory Data (last 24 hrs) 05/03/22 18:10: PT 9.7, INR 0.80 05/03/22 18:10: WBC 11.30 H, Hgb 16.8, Hct 49.5 H, Plt Count 214 05/03/22 18:10: Sodium 137, Potassium 3.6, BUN 17, Creatinine 1.73 H, Glucose 118 H, Magnesium 1.9, Total Bilirubin 1.1 H, AST 14 L, ALT 28, Alkaline Phosphatase 58 Microbiology Data (last 24 hrs): 05/03/22 18:45 Nasopharnyx Influenza Type A Antigen Screen - Final 05/03/22 18:45 Nasopharnyx Influenza Type B Antigen Screen - Final - Diagnosis (Problem(s)) (1) HTN (hypertension) Current Visit: Yes Status: Acute Plan: HE IS NORMAL FOR BP NOW. CE NEG. HE WILL FU WITH DR. BHATTI FOR STRESS TEST. RAISE HYDRALAZINE TO 25 MG BID. FU IN OFFICE IN ONE WEEK. - Disposition Disposition: ROUTINE DISCHARGE Condition: FAIR
--- NOTE | 2022-05-04 16:15 | EKG ---
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
--- NOTE | 2022-05-05 00:21 | CON ---
Date of Consultation: 05/04/2022 Reason For Consultation: Chest pain. History Of Present Illness: This is a 66-year-old male with history of hypertension, dyslipidemia, C HF, and atrial fibrillation who presented to the emergency room because of blood pressure being eleva mary and when that happened started having some chest pain. The pain completely resolved. Denies hav ing any nausea, vomiting, or diarrhea. Denies having any exertional chest pain. Evaluated him by kashif herman and he was pain free. Past Medical History: As outlined above in HPI. Medications: Refer to reconciliation sheet for detailed list. Allergies: NO KNOWN DRUG ALLERGIES. Family History: No premature coronary artery disease or cancer. Social History: Does not smoke or drink. Does not use any drugs. Review of Systems: All systems reviewed and are negative except for what is mentioned in HPI. Physical Examination: Vital Signs: Reviewed. Head And Neck: Pupils are equal and reactive to light. Intact eye movements. No JVD. No cervical lymphadenopathy. Neck: Supple. Thyroid is not enlarged. Lungs: Clear to auscultation bilaterally. No rhonchi, wheezing, or crackles. No accessory muscle u se. Heart: Regular rate and rhythm. No extra sounds. Abdomen: Soft, nontender. Bowel sounds positive. No organomegaly. No masses or hernia. No rigidi ty or rebound. Extremities: No clubbing or cyanosis. Intact pulses. Skin: No rash. Neuro: Alert, awake, and oriented x3. No acute focal deficits appreciated. Investigations: 4 sets of cardiac troponins are negative. Creatinine is 1.86, BUN 19. Hemoglobin 1 5.7. Assessment And Plan: 1.Chest pain. Negative troponin and pain is atypical. No further inpatient cardiac workup is recom mended. The patient can be released and follow up as an outpatient. I will plan for an exercise str ess test and an echocardiogram. 2.Chronic kidney disease and that is stable. Case discussed with Dr. Reddy. SR/MODL Voice ID: [id number] Report ID: [id number]
== END 2022-05-04 11:07 | disposition home or self-care (01) ==
LOC: ER 17:41 → ERHOLD 21:37
PROVIDERS: ADMIT Internal Medicine; ATTEND Internal Medicine
DX: R07.9 Chest pain, unspecified (principal); I10 Essential (primary) hypertension; I50.9 Heart failure, unspecified; I48.91 Unspecified atrial fibrillation; E78.9 Disorder of lipoprotein metabolism, unspecified; Z20.822 Contact with and (suspected) exposure to COVID-19; Z95.0 Presence of cardiac pacemaker
CPT/HCPCS: 93005; 85025 ×2; 80048 ×2; 36415; 83735; 85610; 80076; 84484 ×4; 83880; 87804 ×2; 71045; 99285; U0003; G0378 ×3

== ENCOUNTER → 2023-08-14 | Emergency (ER) | payer OTHER, MEDICARE ==
--- OUTSIDE RECORDS SUMMARY | 2023-08-14 12:37 | XMS REPORT | Continuity of Care Document ---
Author Name Unknown Address [address] [facility] [address] [place] [address] [facility] Address [address] [facility]. [address] [place] [address] Care Team Providers Care General Lot Attendant Name Role Phone Prasanth Sheriff Attending Clinician Unavailable Physician, No Primary or Family Admitting Clinic ahsan Unavailable Payers Payer Name Policy Type Policy Number Effective Date Expirati on Date Source Allergies, Adverse Reactions, Alerts Allergy Name Allergy Type Status Severity Reaction(s) Onset Date Inactive Date Treating Clinician Comments Source No Known Allergie s DA Active U 2022-07 00:00: 00 [facility] Encounters Start Date/Time End Date/Time Encounter Type Admission Type Attending Clinicians Care Facility Care Department Encounter ID Source 2023-07-04 05:25:00 2023-07-04 05:25:00 Outpatient EL Prasanth Sheriff [facility] OUTD [id number] [facility] Results Test Description Test Time Test Comments Results Result Co mments Source [id number] 09:29:00* Test Item Value Reference Range Interpretation Comme nts ACT-ISTAT (test code = ACTI) 277 SEC 74-137 H Performed by cer tified wire turning machine operator at [facility] BASIC METABOLIC [id number] 12:48:00* Test Item Value Reference Range Interpretation Comme nts SODIUM (test code = NA) 140 mEq/L 134-147 N POTASSIUM (test code = K) 4.3 mEq/L 3.4-5.0 N CHLORIDE (test code = CL) 107 mEq/L 100-108 N CARBON DIOXIDE (test code = CO2) 26 mEq/l 21-33 N ANION GAP (test code = GAP) 11 0-20 N GLUCOSE (test code = GLU) 94 mg/dL 77-141 N NOTE: NEW NORMAL RANGE BLOOD UREA NITROGEN (test code = BUN) 20 mg/dL 7-25 N NOTE: NEW NORM AL RANGE GLOMERULAR FILTRATION RATE (test code = GFR) 35.5 80-90 L The Glomerular Filtration Rate is a calculated parameterbased on serum Creatinine, patient age and sex. GFR valuesless than 60 mL/min/1.73 square meters are indicative ofChronic Kidney Disease. Values less than 15 mL/min/1.73square meters indicate Kidney failure. The calculation forGFR is based on the CKD-EPI (2020) calculation. This formulais race indifferent and is the recommended formula for GFRby the National Kidney Foundation for Adults.The GFR will not calculate if the sex is unknown or if thepatient's age is <18 years. CREATININE (test code = CREAT) 2.0 mg/dL 0.6-1.3 H CALCIUM (test code = CA) 8.6 mg/dL 8.0-10.5 N PROTHROMBIN [id number] 12:33:00* Test Item Value Reference Range Interpretation Comme nts PROTHROMBIN TIME PATIENT (test code = PTP) 12.2 SECONDS 9.3-12.9 N INTERNATIONAL NORMAL RATIO (test code = INR) 1.1 0.8-1.2 N TARGET INR BY INDICATION Indication INR1. Prophylaxis of venous thrombosis 2.0 - 3.0 (orthopedic surgery), Prophylaxis of venous thrombosis (other than high-risk surgery), Treatment of Deep Vein Thrombosis/Pulmonary Embolism, Prevention of systemic embolism - Tissue heart valves, Acute Myocardial Infarction (to prevent systemic embolism), Valvular heart disease, Atrial Fibrillation, Bileaflet mechanical valve in aortic position.2. Mechanical prosthetic valves (high risk), 2.5 - 3.5 Presence of Lupus Anticoagulant or Antiphospholipid Antibodies, Prevention of systemic embolism - Acute Myocardial Infarction (to prevent recurrent infarct). CBC W/AUTO [id number] 12:25:00* Test Item Value Reference Range Interpretation Comme nts WHITE BLOOD CELL (test code = WBC) 6.8 x10 3/uL 4.5-11.0 N RED BLOOD CELL (test code = RBC) 4.83 x10 6/uL 4.00-5.60 N HEMOGLOBIN (test code = HGB) 16.0 g/dL 12.5-16.9 N HEMATOCRIT (test code = HCT) 47.6 % 37.5-50.7 N MEAN CELL VOLUME (test code = MCV) 98.6 fL 81.0-99.0 N MEAN CELL HGB (test code = MCH) 33.1 pg 27.0-33.0 H MEAN CELL HGB CONCETRATION (test code = MCHC) 33.6 g/dL 33.0-37.0 N RED CELL DISTRIBUTION WIDTH CV (test code = RDW) 12.8 % 11.5-14.5 N RED CELL DISTRIBUTION WIDTH SD (test code = RDW-SD) 46.6 fL 37.0-54.0 N PLATELET COUNT (test code = PLT) 168 x10 3/uL 150-400 N MEAN PLATELET VOLUME (test c ode = MPV) 9.5 fL 7.0-9.0 H NEUTROPHIL % (test code = NT%) 58.8 % 56.0-77.0 N IMMATURE GRANULOCYTE % (test code = IG%) 0.7 % 0.0-2.0 N LYMPHOCYTE % (test code = LY%) 22.2 % 14.0-32.0 N MONOCYTE % (test code = MO%) 9.9 % 4.8-9.0 H EOSINOPHIL % (test code = EO%) 7.4 % 0.3-3.7 H BASOPHIL % (test code = BA%) 1.0 % 0.0-2.0 N NUCLEATED RBC % (test code = NRBC%) 0.0 % 0-0 N NEUTROPHIL # (test code = NT#) 4.00 x10 3/uL 2.0-7.6 N IMMATURE GRANULOCYTE # (test code = IG#) 0.05 x10 3/uL 0.00-0.03 H LYMPHOCYTE # (test code = LY#) 1.51 x10 3/uL 1.0-3.8 N MONOCYTE # (test code = MO#) 0.67 x10 3/uL 0.1-0.8 N EOSINOPHIL # (test code = EO#) 0.50 x10 3/uL 0.0-0.2 H BASOPHIL # (test code = BA#) 0.07 x10 3/uL 0.0-0.2 N NUCLEATED RBC # (test code = NRBC#) 0.00 x10 3/uL 0.0-0.1 N - XR CHEST 2 [id number] 12:25:00 [facility] : 1955 Sex: M FAX: Prasanth Mixon MD [phone] [place]: St: PRE Name: HEIDI OTTO [facility] : 1955 Age/S: 67/M [address] [place] [address] Unit #: [id number] Loc: [place] [address] Phys: Prasanth Sheriff MD Acct: [id number] Dis Date: Status: PRE [facility] PHONE #: [phone] Exam Date: 07/02/2023 1205 FAX #: [phone] Reason: PRE OP EXAMS: CPT CODE: [id number] XR CHEST 2 V 52768 EXAM: - XR CHEST 2 V HISTORY: PRE OP COMPARISON: None FINDINGS: Single lead left chest cardiac device projects over the right ventricle. Cardiomegaly with evidence of prior cardiac surgery with median sternotomy wires/post CABG changes with coronary stents. The lungs are clear without focal airspace opacity. No pneumothorax or p leural effusion. Only vascular distribution within normal limits. No acute osseous abnormality. IMPRESSION: Negative for acute chest process. Cardiomegaly and postcardiac surgical changes. at 1225 Reported and signed by: Gilmer bryan D.O CC: Prasanth Sheriff MD Technologist: RT Charmaine(R) Trnscrd Date/Time/By: 07/02/2023 (0717) : By: Orig Print D/T: S: 07/02/2023 (2203) PAGE 1 Signed Report Notes Date/Time Note Provider Source 2023-07-04 10:44:00 [id number] gWvstAg+b6YanGiTNJrP6lKbUT+kV a[id number]:44:32961 0-0073 [place] [address] PATIENT NAME: HEIDI OTTO ADMIT DATE: 07/04/23ACCOUNT NO: [id number] ROOM NO: AGE: 67 REPORT TYPE: eELECTROCARDIOGRAM REPORT SEX: M ADMITTING PHYSICIAN: ATTENDING PHYSICIAN:Prasanth Sheriff MD Order:[id number] Reason : ABLATION Test Date/Time Stamp:SunJul 04 2023 10:44:11Blood Pressure : / mmHGVent. Rate : 067 BPM Atrial Rate : 067 BPM P-R Int : 000 ms QRS Dur : 186 ms QT Int : 482 ms P-R-T Axes : 000 -50 008 degrees QTc Int : 509 ms Sinus rhythmLeft axis deviationNonspecific intraventricular blockAbnormal ECGWhen compared with ECG of 02-JUL-2023 11:28,No significant change was foundConfirmed by BECK HERNANDEZ MD ([id number]) on 07/04/2023 4:54:56 PM Referred By: Prasanth Sheriff Confirmed by:BECK HERNANDEZ MD at 1654 PATIENT NAME: HEIDI OTTO .[id number] AVAvailable for patient [id number]:55:17 [facility] 2023-07-04 10:20:00 [id number]+7wl21h 4bZoHznRpL3PjXR027cht40g6TR6869-41-40P29:20:74491 0-0025 [place] [address] PATIENT NAME: HEIDI OTTO ADMIT DATE: 07/04/23ACCOUNT NO: [id number] ROOM NO: AGE: 67 REPORT TYPE: CARDIAC CATHETERIZATION REPORT SEX: M ADMITTING PHYSICIAN: ATTENDING PHYSICIAN:Prasanth Sheriff MD PROCEDURE DATE: 07/04/2023 PREOPERATIVE DIAGNOSIS: Paroxysmal atrial fibrillation. POSTOPERATIVE DIAGNOSIS: Paroxysmal atrial fibrillation. PROCEDURE PERFORMED:1. Catheter ablation with pulmonary vein electrical isolation2. Catheter ablation of nonpulmonary vein triggers on the posterior wall.3. IV adenosine infusion.4. Intracardiac ultrasound.5. 3D anatomical mapping. MEDICAL LABORATORY TECHNICAL OFFICER: Prasanth Sheriff MD. REFERRING PHYSICIAN: Dr. Taran Rowe. DESCRIPTION OF PROCEDURE AND FINDINGS: After informed consent was obtained, thepatient was brought to the fish farm laborer where he was placed under general anesthesia. Right and left groins were prepped and draped in the usual sterile fashion. Three sheaths were placed in the right femoral vein using micropuncture needle and ultrasound guidance. Intracardiac ultrasound catheter was positioned in the right atrium and imaging of the left atrium, pulmonary veins and the interatrial septum was performed. A 10-pole catheter was advancedinto the coronary sinus. Baseline rhythm was normal sinus rhythm with atrial pacing and intrinsic AV mihai conduction. Using a Humboldt needle and a deflectable sheath, single transseptal puncture of the interatrial septum was performed and access to the left atrium was achieved. Using a multipolar mapping catheter with a map of the left atrium and the pulmonary veins was constructed. There was voltage present in the left-sided pulmonary veins and inthe right-sided pulmonary veins, there was some voltage in the pepe and the anterior aspect. Most of the left atrium was healthy except for some areas on the posterior wall. The mapping catheter was then exchanged for a radiofrequency open irrigation SmartTouch ablation catheter, which was used to perform wide area circumferential ablation around the right-sided and the left-sided pulmonary veins. We then confirmed entrance and exit block by pacingin the veins. Finally, we turned our attention to the posterior wall and more lesions were delivered just posterior to the left inferior pulmonary vein and right inferior pulmonary vein in the areas of low voltage scar. No linear ablation lines were performed on the posterior wall. Finally, at the end of thecase, all the catheters and sheaths were withdrawn and hemostasis was achieved with a ProGlide closure device. PATIENT NAME: HEIDI OTTO Dictated By: Prasanth Sheriff MD Date Dictated: 07/04/2023 10:20:09Date Transcribed: 07/04/2023 10:35:44MS/RIZJob #: [id number] ID: [id number] by Prasanth Sheriff MD On 07/06/2023 02:25:15 PM at 0225 PATIENT NAME: HEIDI OTTO [id number]:35:00G.[id number] ble for patient weqpUPYTPLGEEYNRHJ8898-59-57Q58:25:47 [facility] 2023-07-02 11:28:00 [id number]/E2Z3MCXqtYnZ Fv0AmiAjy6vseCZ+Fizyiv2kMqc1064-78-90V06:28:62374 8-[address] [address] PATIENT NAME: HEIDI OTTO ADMIT DATE: ACCOUNT NO: [id number] ROOM NO: AGE: 67 REPORT TYPE: eELECTROCARDIOGRAM REPORT SEX: M ADMITTING PHYSICIAN: ATTENDING PHYSICIAN:Prasanth Sheriff MD Order:[id number] Reason : PREOP Test Date/Time Stamp:SunJul 02 2023 11:28:17Blood Pressure : / mmHGVent. Rate : 057 BPM Atrial Rate : 056 BPM P-R Int : 000 ms QRS Dur : 186 ms QT Int : 482 ms P-R-T Axes : 000 135 -31 degrees QTc Int : 469 ms Wide QRS rhythmNonspecific intraventricular blockAbnormal ECGNo previous ECGs availableConfirmed by BECK HERNANDEZ MD ([id number]) on 07/02/2023 4:41:09 PM Referred By: Prasanth Sherfif Confirmed by:BECK HERNANDEZ MD at 1641 PATIENT NAME: HEIDI OTTO .[id number] AVAvailable for patient [id number]-89M61:41:31 [facility]
--- NOTE | 2023-08-14 13:10 | RAD REPORT ---
EXAM DESCRIPTION: CT - Head Brain Wo Cont - 08/14/2023 12:59 pm CLINICAL HISTORY: DIZZINESS Headache, drowsiness COMPARISON: No comparisons TECHNIQUE: All CT scans are performed using dose optimization technique as appropriate and may inclu de automated exposure control or mA/KV adjustment according to patient size. FINDINGS: No intracranial hemorrhage, hydrocephalus or extra-axial fluid collection.No areas of brai n edema or evidence of midline shift. The paranasal sinuses and mastoids are clear. The calvarium is intact. IMPRESSION: No acute intracranial abnormality.
[2023-08-14 14:06] LABS: Absolute Lymphocytes (CBC) 1.3 K/uL (0.7-4.9); Hematocrit 46.3 % (39.6-49.0); Lymphocytes % 19.9 % (15.3-44.8); MCV 95.7 fL (80-100); MPV 7.6 fL (7.6-11.3); Platelets 164 thou/uL (152-406); RBC Red Blood Cell Count 4.83 M/uL (4.33-5.43)
[2023-08-14 14:07] LABS: Protime INR 1.38
--- NOTE | 2023-08-14 14:10 | RAD REPORT ---
EXAM DESCRIPTION: - CP - 08/14/2023 1:49 pm CLINICAL HISTORY: DIZZINESS Headache, drowsiness COMPARISON: No comparisons TECHNIQUE: Real-time sonographic evaluation of both carotid systems was performed. Doppler interroga tion was performed with waveform tracing bilaterally. FINDINGS: Normal high resistance waveforms are noted in both external carotid arteries. The common c arotid arteries and internal carotid arteries show normal low resistance waveforms. Moderate hard plaque involves the right carotid bulb. Narrowing of the right proximal internal caroti d artery based on NASCET criteria is approximately 50-70%. Moderate hard plaque proximal left interna l carotid artery results in stenosis estimated at 70% based on NASCET criteria. Antegrade flow seen in both vertebral arteries. IMPRESSION: Moderate hard plaque is present involving both proximal internal carotid arteries result ing in moderate grade stenosis bilaterally, estimated 50-70% based on NASCET criteria.
[2023-08-14 14:29] LABS: Albumin 3.3 g/dL (3.4-5.0); Bilirubin Direct 0.3 mg/dL (0-0.2); Bilirubin Indirect, Calculated 0.8 mg/dL (0.2-0.8); Bilirubin Total 1.1 mg/dL (0.2-1.0); Protein, Total 7.1 g/dL (6.4-8.2); Troponin High Sensitivity 16.6 pg/mL (<58.9)
[2023-08-14 14:30] LABS: Magnesium 2.2 mg/dL (1.6-2.4); Potassium 3.9 mEq/L (3.5-5.1)
--- NOTE | 2023-08-14 15:31 | RAD REPORT ---
EXAM DESCRIPTION: RAD - Chest Single View - 08/14/2023 3:11 pm CLINICAL HISTORY: COUGH Chest pain. COMPARISON: Chest Pa And Lat (2 Views) dated 07/05/2023; Chest Single View dated 05/03/2022; Chest S omayra View dated 04/28/2022; Chest Single View dated 04/27/2022 FINDINGS: Portable technique limits examination quality. The lungs are grossly clear. Heart is mildly enlarged. No displaced fractures.Single lead pacer/defib rillator device. Sternotomy wires. IMPRESSION: No acute intrathoracic process suspected.
--- NOTE | 2023-08-14 15:37 | ER ---
Nurse's Notes [facility] Name: Sacha Jones Age: 67 yrs Sex: Male : 1955 Arrival Date: 08/14/2023 Time: 12:35 Bed 19 Private MD: Diagnosis: Benign paroxysmal vertigo, unspecified ear;Dizziness and giddiness;Occlusion and stenosis of bilateral carotid mqyrxjso-83-02% INTERNAL CAROTID;Presence of cardiac pacemaker;Chronic kidney disease, stage 2 (mild) Presentation: 08/14 12:52 Chief complaint:. tl4 12:52 Method Of Arrival: Wheelchair tl4 12:55 Chief complaint: Patient states: Pt c/o dizziness x 45 minutes. Pt states he became tl4 dizzy after bending over and turning to the side. Pt denies CP, SOB, RIVERO, changes in vision, weakness. Coronavirus screen: Vaccine status: Patient reports receiving the 2nd dose of the covid vaccine. Ebola Screen: Patient negative for fever greater than or equal to 101.5 degrees Fahrenheit, and additional compatible Ebola Virus Disease symptoms Patient denies exposure to infectious person. Patient denies travel to an Ebola-affected area in the 21 days before illness onset. No symptoms or risks identified at this time. Initial Sepsis Screen: Does the patient meet any 2 criteria? No. Patient's initial sepsis screen is negative. Does the patient have a suspected source of infection? No. Patient's initial sepsis screen is negative. Risk Assessment: Do you want to hurt yourself or someone else? Patient reports no desire to harm self or others. Onset of symptoms was August 14, 2023 at 12:00. 12:55 Acuity: COOPER 3 tl4 Triage Assessment: 12:57 General: Appears uncomfortable, Behavior is calm, cooperative. Pain: Denies pain. EENT: tl4 No deficits noted. No signs and/or symptoms were reported regarding the EENT system. Neuro: Reports dizziness, Denies blurred vision numbness headache. Cardiovascular: No deficits noted. Denies chest pain, diaphoresis, lightheadedness, palpitations, syncope. Respiratory: No deficits noted. Denies cough, shortness of breath. GI: No deficits noted. No signs and/or symptoms were reported involving the gastrointestinal system. : No deficits noted. No signs and/or symptoms were reported regarding the genitourinary system. Derm: No deficits noted. No signs and/or symptoms reported regarding the dermatologic system. Historical: - Allergies: 12:54 No Known Allergies; tl4 - PMHx: 12:54 defibrillator / pacemaker; HLD; Hypertensive disorder; cardiac ablation (Hypertensive tl4 disorder); - Immunization history:: Adult Immunizations unknown. - Social history:: Smoking status: Patient denies any tobacco usage or history of. - Family history:: not pertinent. Screenin:04 [facility] ED Fall Risk Assessment (Adult) History of falling in the last 3 months, cm10 including since admission No falls in past 3 months (0 pts) Confusion or Disorientation No (0 pts) Intoxicated or Sedated No (0 pts) Impaired Gait No (0 pts) Mobility Assist Device Used No (0 pt) Altered Elimination No (0 pt) Score/Fall Risk Level 0 - 2 = Low Risk Oriented to surroundings, Maintained a safe environment, Hourly rounding (assess needs \T\ fall precautionary measures) done. Abuse screen: Denies threats or abuse. Denies injuries from another. Nutritional screening: No deficits noted. Tuberculosis screening: No symptoms or risk factors identified. Assessment: 15:02 General: Appears in no apparent distress. comfortable, Behavior is calm, cooperative. cm10 Pain: Denies pain. Neuro: No deficits noted. Level of Consciousness is awake, alert, obeys commands, Oriented to person, place, time, situation. Cardiovascular: No deficits noted. Heart tones present Patient's skin is warm and dry. Respiratory: No deficits noted. Airway is patent Respiratory effort is even, unlabored, Respiratory pattern is regular, symmetrical, Breath sounds are clear bilaterally. GI: No deficits noted. No signs and/or symptoms were reported involving the gastrointestinal system. Bowel sounds present X 4 quads. Abd is soft and non tender X 4 quads. : No deficits noted. No signs and/or symptoms were reported regarding the genitourinary system. EENT: No deficits noted. No signs and/or symptoms were reported regarding the EENT system. Derm: No deficits noted. No signs and/or symptoms reported regarding the dermatologic system. Skin is intact, Skin is pink, warm \T\ dry. Musculoskeletal: No deficits noted. Range of motion: intact in all extremities. 15:03 Reassessment: Assumed care of patient at this time. Pt states that his dizziness had cm10 improved. Pt denies any chest pain or shortness of breath. Pt updated on plan of care, placed on continuous cardiac monitoring. at bedside. Vital Signs: 12:55 BP 146 / 94; Pulse 66; Resp 18; Temp 98.1(O); Pulse Ox 100% ; Weight 81.65 kg; Height 5 tl4 ft. 2 in. ; Pain 0/10; 14:52 BP 144 / 58; Pulse 75; Resp 17 S; Pulse Ox 96% on R/A; Pain 0/10; cm10 15:00 BP 132 / 63; Pulse 69; Resp 16; Pulse Ox 97% on R/A; Pain 0/10; cm10 12:55 Body Mass Index 32.92 (81.65 kg, 157.48 cm) tl4 12:55 Pain Scale: Adult tl4 14:52 Pain Scale: Adult cm10 15:00 Pain Scale: Adult cm10 ED Course: 12:38 Patient arrived in ED. im 12:41 Abdulkadir Valerio MD is Attending Physician. makayla 12:57 Triage completed. tl4 12:57 Arm band placed on Patient placed in an exam room, on a stretcher. tl4 13:01 CT Head Brain wo Cont In Process Unspecified. EDMS 13:14 Note: attempted to call for patient in ED lobby, no answer. Pt also not in cat scan at md2 this time. Radiology exam delayed due to unable to locate pt. 13:16 US Carotid Artery Bilateral In Process Unspecified. EDMS 13:52 Initial lab(s) drawn, by me, sent to lab. Inserted saline lock: 22 gauge in left ap3 antecubital area, using aseptic technique. Blood collected. 14:24 EKG done, by ED staff, reviewed by Abdulkadir Valerio MD. jl7 14:44 Michelle Hall, RN is Primary Nurse. cm10 15:04 Patient has correct armband on for positive identification. Bed in low position. Call cm10 light in reach. Provided Education on: ER process and procedures. . 15:13 XRAY Chest (1 view) In Process Unspecified. EDMS 15:37 Zachary Reeves MD is Referral Physician. makayla 15:54 No provider procedures requiring assistance completed. IV discontinued, intact, cm10 bleeding controlled, No redness/swelling at site. Pressure dressing applied. Administered Medications: 14:43 Not Given (Patient Refused): ns 0.9% 1000 ml IV at 1 bolus Per protocol; 1000 mL bolus jl7 14:43 Not Given (Patient Refused): sziauppzo50 mg PO once jl7 14:43 Not Given (Patient Refused): ondansetron 4 mg IVP once; over 2 minutes jl7 Medication: 15:04 VIS not applicable for this client. cm10 Outcome: 15:36 Discharge ordered by . makayla 15:54 Discharged to home ambulatory, with significant other, 10 15:54 Condition: good 15:54 Discharge instructions given to patient, significant other, Instructed on discharge instructions, follow up and referral plans. medication usage, Demonstrated understanding of instructions, follow-up care, medications, Prescriptions given X 2, 15:54 Patient left the ED. cm10 Signatures: Dispatcher [employer] EDAbdulkadir Boogie MD MD cha Leal, Jahala, RN RN jl7 Johanna Connor RN RN [email or web address] Alessandra Rosales md2 Ashley Rodriguez Clarissa RN RN cm10 Aakash Salazar4
--- NOTE | 2023-08-14 15:37 | EDPHYS ---
Physician Documentation [facility] Name: Sacha Jones Age: 67 yrs Sex: Male : 1955 Arrival Date: 08/14/2023 Time: 12:35 Bed 19 Private MD: ED Physician Abdulkadir Valerio HPI: 08/14 15:31 This 67 yrs old Male presents to ER via Wheelchair with complaints of makayla Dizziness. 15:31 The patient presents with dizziness. Onset: The symptoms/episode began/occurred just makayla prior to arrival. Context: occurred at home, occurred while the patient was walking, BENDING OVER , TURNING TO THE LEFT. Modifying factors: The symptoms are alleviated by nothing, the symptoms are aggravated by movement of head. Associated signs and symptoms: The patient has no apparent associated signs or symptoms. Severity of symptoms: At their worst the symptoms were mild in the emergency department the symptoms have resolved and did so just prior to arrival. Patient's baseline: Neuro: alert and fully oriented. The patient has not experienced similar symptoms in the past. Historical: - Allergies: 12:54 No Known Allergies; tl4 - PMHx: 12:54 defibrillator / pacemaker; HLD; Hypertensive disorder; cardiac ablation (Hypertensive tl4 disorder); - Immunization history:: Adult Immunizations unknown. - Social history:: Smoking status: Patient denies any tobacco usage or history of. - Family history:: not pertinent. ROS: 15:31 Constitutional: Negative for fever, chills, and weight loss, Eyes: Negative for injury, makayla pain, redness, and discharge, ENT: Negative for injury, pain, and discharge, Neck: Negative for injury, pain, and swelling, Cardiovascular: Negative for chest pain, palpitations, and edema, Respiratory: Negative for shortness of breath, cough, wheezing, and pleuritic chest pain, Abdomen/GI: Negative for abdominal pain, nausea, vomiting, diarrhea, and constipation, Back: Negative for injury and pain, : Negative for injury, bleeding, discharge, and swelling, MS/Extremity: Negative for injury and deformity, Skin: Negative for injury, rash, and discoloration, Psych: Negative for depression, anxiety, suicide ideation, homicidal ideation, and hallucinations, Allergy/Immunology: Negative for hives, rash, and allergies, Endocrine: Negative for neck swelling, polydipsia, polyuria, polyphagia, and marked weight changes, Hematologic/Lymphatic: Negative for swollen nodes, abnormal bleeding, and unusual bruising, 15:31 Neuro: Positive for dizziness, Exam: 15:31 Constitutional: This is a well developed, well nourished patient who is awake, alert, makayla and in no acute distress. Head/Face: Normocephalic, atraumatic. Eyes: Pupils equal round and reactive to light, extra-ocular motions intact. Lids and lashes normal. Conjunctiva and sclera are non-icteric and not injected. Cornea within normal limits. Periorbital areas with no swelling, redness, or edema. ENT: Nares patent. No nasal discharge, no septal abnormalities noted. Tympanic membranes are normal and external auditory canals are clear. Oropharynx with no redness, swelling, or masses, exudates, or evidence of obstruction, uvula midline. Mucous membranes moist. Neck: Trachea midline, no thyromegaly or masses palpated, and no cervical lymphadenopathy. Supple, full range of motion without nuchal rigidity, or vertebral point tenderness. No Meningismus. Chest/axilla: Normal chest wall appearance and motion. Nontender with no deformity. No lesions are appreciated. Cardiovascular: Regular rate and rhythm with a normal S1 and S2. No gallops, murmurs, or rubs. Normal PMI, no JVD. No pulse deficits. Respiratory: Lungs have equal breath sounds bilaterally, clear to auscultation and percussion. No rales, rhonchi or wheezes noted. No increased work of breathing, no retractions or nasal flaring. Abdomen/GI: Soft, non-tender, with normal bowel sounds. No distension or tympany. No guarding or rebound. No evidence of tenderness throughout. Back: No spinal tenderness. No costovertebral tenderness. Full range of motion. Male : Normal genitalia with no discharge or lesions. Skin: Warm, dry with normal turgor. Normal color with no rashes, no lesions, and no evidence of cellulitis. MS/ Extremity: Pulses equal, no cyanosis. Neurovascular intact. Full, normal range of motion. Neuro: Awake and alert, GCS 15, oriented to person, place, time, and situation. Cranial nerves II-XII grossly intact. Motor strength 5/5 in all extremities. Sensory grossly intact. Cerebellar exam normal. Normal gait. Psych: Awake, alert, with orientation to person, place and time. Behavior, mood, and affect are within normal limits. 15:31 ECG was reviewed by the Attending Physician. Vital Signs: 12:55 BP 146 / 94; Pulse 66; Resp 18; Temp 98.1(O); Pulse Ox 100% ; Weight 81.65 kg; Height 5 tl4 ft. 2 in. ; Pain 0/10; 14:52 BP 144 / 58; Pulse 75; Resp 17 S; Pulse Ox 96% on R/A; Pain 0/10; cm10 15:00 BP 132 / 63; Pulse 69; Resp 16; Pulse Ox 97% on R/A; Pain 0/10; cm10 12:55 Body Mass Index 32.92 (81.65 kg, 157.48 cm) tl4 12:55 Pain Scale: Adult tl4 14:52 Pain Scale: Adult cm10 15:00 Pain Scale: Adult cm10 MDM: 12:41 Patient medically screened. makayla 15:34 Differential diagnosis: cardiac arrhythmia, CVA, generalized weakness, idiopathic makayla dizziness, near-syncope, TIA, vertigo. Data reviewed: vital signs, nurses notes, lab test result(s), EKG, radiologic studies, CT scan, doppler. Consideration of Admission/Observation Escalation of care including admission/observation considered. I considered the following discharge prescriptions or medication management in the emergency department Medications were administered in the Emergency Department. See MAR. Independent interpretation of the following test(s) in the Emergency Department EKG: See my EKG interpretation above. Test considered but Not performed: MRI: NO MRI , PM/DEFIB. 08/14 12:42 Order name: Basic Metabolic Panel; Complete Time: 15: makayla 08/14 12:42 Order name: CBC with Diff; Complete Time: 15:08/14 12:42 Order name: LFT's; Complete Time: :08/14 12:42 Order name: Magnesium; Complete Time: : makayla 08/14 12:42 Order name: NT PRO-BNP; Complete Time: 15:08/14 12:42 Order name: PT-INR; Complete Time: 15: makayla 08/14 12:42 Order name: Troponin HS; Complete Time: :08/14 12:42 Order name: Lipase; Complete Time: 15: [facility] 08/14 12:42 Order name: XRAY Chest (1 view); Complete Time: 15:39 [facility] 08/14 12:42 Order name: CT Head Brain wo Cont; Complete Time: 15:29 [facility] 08/14 12:42 Order name: US Carotid Artery Bilateral; Complete Time: 15:29 [facility] 08/14 12:42 Order name: EKG; Complete Time: 12:43 [facility] 08/14 12:42 Order name: Cardiac monitoring; Complete Time: 15:02 [facility] 08/14 12:42 Order name: EKG - Nurse/Tech; Complete Time: 14:24 [facility] 08/14 12:42 Order name: IV Saline Lock; Complete Time: 13:53 [facility] 08/14 12:42 Order name: Labs collected and sent; Complete Time: 13:53 [facility] 08/14 12:42 Order name: O2 Per Protocol; Complete Time: 14:25 [facility] 08/14 12:42 Order name: O2 Sat Monitoring; Complete Time: 14:25 [facility] EC:31 Rate is 67 beats/min. Rhythm is irregular. QRS [place] is Normal. [place] interval is normal. makayla QRS interval is normal. QT interval is normal. No Q waves. T waves are Normal. Clinical impression: NSR w/ Non-specific ST/T Changes and No evidence of ischemia. Interpreted by me. Reviewed by me. Administered Medications: 14:43 Not Given (Patient Refused): ns 0.9% 1000 ml IV at 1 bolus Per protocol; 1000 mL bolus jl7 14:43 Not Given (Patient Refused): wsfwikigy03 mg PO once jl7 14:43 Not Given (Patient Refused): ondansetron 4 mg IVP once; over 2 minutes jl7 Disposition Summary: 08/14/23 15:36 Discharge Ordered Notes: Location: Home makayla Problem: new makayla Symptoms: have improved makayla Condition: Stable makayla Diagnosis - Benign paroxysmal vertigo, unspecified ear makayla - Dizziness and giddiness makayla - Occlusion and stenosis of bilateral carotid arteries - 50-70% INTERNAL CAROTID makayla - Presence of cardiac pacemaker makayla - Chronic kidney disease, stage 2 (mild) makayla Followup: makayla - With: Private Physician - When: 2 - 3 days - Reason: Recheck today's complaints, Continuance of care, Re-evaluation by your physician Followup: makayla - With: Zachary Reeves MD - When: 2 - 3 days - Reason: Recheck today's complaints, Continuance of care, Re-evaluation by your physician Discharge Instructions: - Discharge Summary Sheet makayla - Benign Positional Vertigo makayla - Dizziness makayla - Vertigo, Cjjh-lx-Odhz makayla - Chronic Kidney Disease, Adult, Nwpu-vq-Rkxf makayla - Chronic Kidney Disease, Adult makayla - Dizziness, Qxqx-yj-Lxiz makayla - Carotid Artery Disease makayla - Carotid Artery Disease, Tbnk-is-Dohb [facility] Forms: - Medication Reconciliation Form [facility] - Thank You Letter makayla - Antibiotic Education [facility] - Prescription Opioid Use [facility] - Patient Portal Instructions [facility] - Leadership Thank You Letter [facility] Prescriptions: - ondansetron 4 mg Oral Tablet,disintegrating - take 1 tablet ORAL route every 6-8 hours for 5 days; 20 tablet; Refills: 0, [facility] Product Selection Permitted - Meclizine 25 mg Oral Tablet - take 1 tablet ORAL route every 8 hours As needed; 30 tablet; Refills: 0, [facility] Product Selection Permitted Signatures: Dispatcher [employer] Abdulkadir Cool MD MD cha Logdahl, Toni tl4 Angelica Wade RN jl7
[2023-08-15 01:27] VITALS: BP 132/63; TEMP 98.1; O2SAT 97
--- NOTE | 2023-08-16 13:29 | EKG ---
Test Date: 2023-08-14 Test Time: 14:22:22 Structural Biologist: LEONARDO MEASUREMENT RESULTS: Intervals: Rate: 67 [place]: 224 QRSD: 176 QT: 446 QTc: 471 [place]: P: -5 [place]: 224 QRS: 117 T: -1 INTERPRETIVE STATEMENTS: Sinus rhythm with 1st degree AV block with frequent premature ventricular complexes Nonspecific intraventricular block Abnormal ECG Compared to ECG 05/03/2022 18:00:52 Ventricular premature complex(es) now present First degree AV block now present Left-axis deviation no longer present T-wave abnormality no longer present Electronically Signed On 08-16-23 13:23:27 LEAD SYSTEMS ANALYST by Zachary Reeves
== END ==
LOC: ER 12:35
DX: H81.10 Benign paroxysmal vertigo, unspecified ear (principal); I65.23 Occlusion and stenosis of bilateral carotid arteries; I12.9 Hypertensive chronic kidney disease with stage 1 through stage 4 chronic kidney disease, or unspecified chronic kidney disease; N18.2 Chronic kidney disease, stage 2 (mild); Z95.810 Presence of automatic (implantable) cardiac defibrillator
CPT/HCPCS: 36415; 70450; 71045; 80048; 80076; 83690; 83735; 83880; 84484; 85025; 85610; 93005; 93880

== ENCOUNTER 2023-08-15 06:31 | Inpatient (IN) | payer OTHER, MEDICARE ==
[2023-08-15] MEDS ORDERED: NA CHLORIDE 0.9% 1,000 ML ONE (06:37)
--- OUTSIDE RECORDS SUMMARY | 2023-08-15 06:38 | XMS REPORT | Continuity of Care Document ---
Author Name Unknown Address [address] [facility] [address] [place] [address] [facility] Address [address] [facility] [place] [address] Care Team Providers Care [employer] Leadership Name Role Phone Prasanth Sheriff Attending Clinician Unavailable Physician, No Primary or Family Admitting Clinic ahsan Unavailable Payers Payer Name Policy Type Policy Number Effective Date Expirati on Date Source Allergies, Adverse Reactions, Alerts Allergy Name Allergy Type Status Severity Reaction(s) Onset Date Inactive Date Treating Clinician Comments Source No Known Allergie s DA Active U 2022-07 00:00: 00 [facility] Encounters Start Date/Time End Date/Time Encounter Type Admission Type Attending Clinicians Care Facility Care Department Encounter ID Source 2023-07-04 05:25:00 2023-07-04 05:25:00 Outpatient EL Prasanth Sheriff [facility] OUTD [id number] [facility] Results Test Description Test Time Test Comments Results Result Co mments Source [id number] 09:29:00* Test Item Value Reference Range Interpretation Comme nts ACT-ISTAT (test code = ACTI) 277 SEC 74-137 H Performed by cer tified electrogalvanizing machine operator at [facility] BASIC METABOLIC [id number] 12:48:00* Test Item Value Reference Range Interpretation [...] = CA) 8.6 mg/dL 8.0-10.5 N PROTHROMBIN [id number] 12:33:00* Test Item Value Reference Range Interpretation [...] Infarction (to prevent recurrent infarct). CBC W/AUTO [id number] 12:25:00* Test Item Value Reference Range Interpretation [...] 3/uL 0.0-0.1 N - XR CHEST 2 [id number] 12:25:00 [facility] 1955 Sex: M FAX: Prasanth Mixon MD [phone] [place]: St: PRE Name: HEIDI OTTO [facility] : 1955 Age/S: 67/M [address] [place] [address] Unit #: [id number] Loc: [place] [address] Phys: Prasanth Sheriff MD Acct: [id number] Dis Date: Status: PRE [facility] PHONE #: [phone] Exam Date: 07/02/2023 1205 FAX #: [phone] Reason: PRE OP EXAMS: CPT CODE: [id number] XR CHEST 2 V 31692 EXAM: - XR CHEST 2 V HISTORY: [...] MD Technologist: RT Charmaine(R) Trnscrd Date/Time/By: 07/02/2023 (8330) : By: Orig Print D/T: S: 07/02/2023 (2956) PAGE 1 Signed Report Notes Date/Time Note Provider Source 2023-07-04 10:44:00 [id number] gWvstAg+g0FtdOiHYRiF2wIgND+kV nM5OxfXJJV5dHkimIwOu8CzqtR62663-40-01H90:44:57642 0-0073 [place] [address] PATIENT NAME: HEIDI OTTO ADMIT DATE: 07/04/23ACCOUNT NO: [id number] ROOM NO: AGE: 67 REPORT TYPE: eELECTROCARDIOGRAM REPORT SEX: M ADMITTING PHYSICIAN: ATTENDING PHYSICIAN:Prasanth Sheriff MD Order:[id number] Reason : ABLATION Test Date/Time Stamp:SunJul 04 [...] MD at 1654 PATIENT NAME: HEIDI OTTO .[id number] AVAvailable for patient epcyJBHTNBBWPIOXZP5356-49-29P67:55:17 [facility] 2023-07-04 10:20:00 [id number] Cfubt4LGPGLYgQL0rli8sC+7wl21h 7wSbCrnOmB2IlWG978dsi77x5WZ4993-97-15W96:20:22142 0-0025 [place] [address] PATIENT NAME: HEIDI OTTO ADMIT DATE: 07/04/23ACCOUNT NO: [id number] ROOM NO: AGE: 67 REPORT TYPE: CARDIAC CATHETERIZATION REPORT SEX: M ADMITTING PHYSICIAN: ATTENDING PHYSICIAN:Prasanth Sheriff MD PROCEDURE DATE: 07/04/2023 PREOPERATIVE DIAGNOSIS: Paroxysmal atrial fibrillation. POSTOPERATIVE DIAGNOSIS: Paroxysmal atrial fibrillation. PROCEDURE PERFORMED:1. Catheter ablation with pulmonary vein electrical isolation2. Catheter ablation of nonpulmonary vein triggers on the posterior wall.3. IV adenosine infusion.4. Intracardiac ultrasound.5. 3D anatomical mapping. FAMILY RESOURCE MANAGEMENT SPECIALIST: Prasanth Sheriff MD. REFERRING PHYSICIAN: Dr. Taran Rowe. DESCRIPTION OF PROCEDURE AND FINDINGS: After informed consent was obtained, thepatient was brought to the agriculture laborer where he was placed under general [...] rhythm with atrial pacing and intrinsic AV mihia conduction. Using a [place] needle and a deflectable sheath, single transseptal [...] Dictated: 07/04/2023 10:20:09Date Transcribed: 07/04/2023 10:35:44MS/RIZJob #: [id number] ID: [id number] by Prasanth Sheriff MD On 07/06/2023 02:25:15 PM at 0225 PATIENT NAME: HEIDI OTTO [id number]:35:00G.[id number] ble for patient sndxEBATCROICKORPQ3896-34-99F53:25:47 [facility] 2023-07-02 11:28:00 [id number] [id number]/Q8Y3BXVkpMzB Qr2FdbTuf0xmxFQ+Tualov5fGuj8133-00-40L82:28:49543 8-[address] [address] PATIENT NAME: HEIDI OTTO ADMIT DATE: ACCOUNT NO: [id number] ROOM NO: AGE: 67 REPORT TYPE: eELECTROCARDIOGRAM REPORT SEX: M ADMITTING PHYSICIAN: ATTENDING PHYSICIAN:Prasanth Sheriff MD Order:[id number] Reason : PREOP Test Date/Time Stamp:SunJul 02 [...] on 07/02/2023 4:41:09 PM Referred By: Prasanth Sheriff Confirmed by:BECK HERNANDEZ MD at 1641 PATIENT NAME: HEIDI OTTO .[id number] AVAvailable for patient ysiuYFNIOIUZNAWGWB5957-16-63E12:41:31 [facility]
[2023-08-15] MEDS ORDERED: AMIODARONE HCL 150 MG/3 ML INJ IV ONE ×2 (06:46→06:47)
[2023-08-15 07:01] LABS: Absolute Lymphocytes (CBC) 1.4 K/uL (0.7-4.9); Hematocrit 49.8 % (39.6-49.0); Lymphocytes % 14.9 % (15.3-44.8); MCV 96.1 fL (80-100); MPV 7.7 fL (7.6-11.3); Platelets 197 thou/uL (152-406); RBC Red Blood Cell Count 5.18 M/uL (4.33-5.43)
[2023-08-15] MEDS ORDERED: ONDANSETRON 4 MG/2 ML VIAL ONE (07:04)
[2023-08-15] MEDS ORDERED: MORPHINE 4 MG/ML SYR ONE (07:04)
[2023-08-15 07:07] LABS: Protime INR 1.31
--- NOTE | 2023-08-15 07:11 | RAD REPORT ---
EXAM DESCRIPTION: RAD - Chest Single View - 08/15/2023 7:04 am CLINICAL HISTORY: CHEST PAIN COMPARISON: Chest Single View dated 08/14/2023; Chest Pa And Lat (2 Views) dated 07/05/2023; Chest Si ngle View dated 05/03/2022; Chest Single View dated 04/28/2022 FINDINGS: Lines: Defibrillator pads. ICD. Lungs: No evidence of edema or pneumonia. Pleural: No significant pleural effusions or pneumothorax. Cardiac: Cardiomegaly. Mediastinum: Within normal limits. Bones: No acute fractures. Sternotomy. Other: None IMPRESSION: No acute cardiopulmonary disease.
[2023-08-15 07:25] LABS: Albumin 3.6 g/dL (3.4-5.0); Bilirubin Direct 0.3 mg/dL (0-0.2); Bilirubin Indirect, Calculated 0.8 mg/dL (0.2-0.8); Bilirubin Total 1.1 mg/dL (0.2-1.0); Magnesium 2.1 mg/dL (1.6-2.4); Potassium 3.6 mEq/L (3.5-5.1); Protein, Total 7.5 g/dL (6.4-8.2)
--- NOTE | 2023-08-15 07:59 | ER ---
Nurse's Notes [facility] Name: Sacha Jones Age: 67 yrs Sex: Male : 1955 Arrival Date: 08/15/2023 Time: 06:31 Bed 3 Private MD: Diagnosis: Paroxysmal atrial fibrillation-with RVR Presentation: 08/15 06:32 Chief complaint: EMS states: toned out for "insides feeling different"; pt noted to km8 have HR in 180's upon EMS arrival; pt A\\T\\Ox4, VSS. Coronavirus screen: Client denies travel out of the [place] in the last 14 days. Ebola Screen: No symptoms or risks identified at this time. Initial Sepsis Screen: Does the patient meet any 2 criteria? HR > 90 bpm. Does the patient have a suspected source of infection? No. Patient's initial sepsis screen is negative. Risk Assessment: Do you want to hurt yourself or someone else? Patient reports no desire to harm self or others. Onset of symptoms was August 15, 2023 at 05:50. 06:32 Method Of Arrival: EMS: [facility] 8 06:32 Acuity: COOPER 2 km8 06:32 Care prior to arrival: Medication(s) given: amiodarone 150mg bolus IV initiated. 20 GA, km8 in the right hand. Triage Assessment: 06:32 General: Appears in no apparent distress. comfortable, Behavior is calm, cooperative, km8 appropriate for age. Pain: Denies pain. EENT: No signs and/or symptoms were reported regarding the EENT system. Neuro: Level of Consciousness is awake, alert, obeys commands, Oriented to person, place, time, situation. Cardiovascular: Denies chest pain, shortness of breath, Capillary refill < 3 seconds Patient's skin is warm and dry. Rhythm is atrial fibrillation with rapid ventricular response. Respiratory: Airway is patent Respiratory effort is even, unlabored, Respiratory pattern is regular, symmetrical. GI: No signs and/or symptoms were reported involving the gastrointestinal system. : No signs and/or symptoms were reported regarding the genitourinary system. Derm: No signs and/or symptoms reported regarding the dermatologic system. Skin is intact, is healthy with good turgor, Skin is dry, Skin is pink, warm \\T\\ dry. normal, Skin temperature is warm. Musculoskeletal: No signs and/or symptoms reported regarding the musculoskeletal system. Circulation, motion, and sensation intact. Range of motion: intact in all extremities. Historical: - Allergies: 06:56 No Known Allergies; km8 - PMHx: 06:56 cardiac ablation (Hypertensive disord); defibrillator / pacemaker; HLD; Hypertensive km8 disorder; - PSHx: 06:56 Coronary artery bypass graft; ablation; km8 - Immunization history:: Client reports receiving the 2nd dose of the Covid vaccine, Flu vaccine is up to date. - Social history:: Smoking status: Patient denies any tobacco usage or history of. Patient uses alcohol, but reports only rare drinking. Patient/guardian denies using street drugs. - Family history:: not pertinent. Screenin:32 [facility] ED Fall Risk Assessment (Adult) History of falling in the last 3 months, km8 including since admission No falls in past 3 months (0 pts) Confusion or Disorientation No (0 pts) Intoxicated or Sedated No (0 pts) Impaired Gait No (0 pts) Mobility Assist Device Used No (0 pt) Altered Elimination No (0 pt) Score/Fall Risk Level 0 - 2 = Low Risk Oriented to surroundings, Maintained a safe environment, Educated pt \\T\\ family on fall prevention, incl call for assistance when getting out of bed, Assessed \\T\\ reinforced patient's understanding of fall precautions. Abuse screen: Denies threats or abuse. Denies injuries from another. Nutritional screening: No deficits noted. Tuberculosis screening: No symptoms or risk factors identified. Assessment: 06:32 General: see triage notes/assessment. km8 07:00 General: Appears in no apparent distress. comfortable, well groomed, well developed, kc6 Behavior is calm, cooperative, appropriate for age, crying. Pain: Denies pain. Neuro: Level of Consciousness is awake, alert, obeys commands, Oriented to person, place, time, situation, Appropriate for age. Cardiovascular: Denies chest pain, Heart tones S1 S2 present Capillary refill < 3 seconds. Respiratory: Airway is patent Trachea midline Respiratory effort is even, unlabored, Respiratory pattern is regular, symmetrical, Breath sounds are clear bilaterally. Denies shortness of breath. GI: No signs and/or symptoms were reported involving the gastrointestinal system. : No signs and/or symptoms were reported regarding the genitourinary system. EENT: No signs and/or symptoms were reported regarding the EENT system. Derm: No signs and/or symptoms reported regarding the dermatologic system. Skin is intact, is healthy with good turgor, Skin is pink, warm \\T\\ dry. Musculoskeletal: No signs and/or symptoms reported regarding the musculoskeletal system. Circulation, motion, and sensation intact. Capillary refill < 3 seconds, Range of motion: intact in all extremities. 07:53 Reassessment: Patient appears in no apparent distress at this time. No changes from kc6 previously documented assessment. Patient and/or family updated on plan of care and expected duration. Pain level reassessed. Patient is alert, oriented x 3, equal unlabored respirations, skin warm/dry/pink. Patient denies pain at this time. Patient states feeling better. Patient states symptoms have improved. 08:48 Reassessment: Patient appears in no apparent distress at this time. No changes from kc6 previously documented assessment. Patient and/or family updated on plan of care and expected duration. Pain level reassessed. Patient is alert, oriented x 3, equal unlabored respirations, skin warm/dry/pink. Patient denies pain at this time. Patient states feeling better. Patient states symptoms have improved. 09:35 Reassessment: Patient appears in no apparent distress at this time. No changes from kc6 previously documented assessment. Patient and/or family updated on plan of care and expected duration. Pain level reassessed. Patient is alert, oriented x 3, equal unlabored respirations, skin warm/dry/pink. 10:20 Reassessment: Patient appears in no apparent distress at this time. No changes from kc6 previously documented assessment. Patient and/or family updated on plan of care and expected duration. Pain level reassessed. Patient is alert, oriented x 3, equal unlabored respirations, skin warm/dry/pink. 16:32 Reassessment: attempted to call report to 2nd floor. GEORGIE Gomez stated they just got a kc6 bunch of patients and the room has not been assigned to a nurse yet. stated she will call me back. 16:50 Reassessment: attempted to call report to 2nd floor. unit controller states she will kc6 have the charge nurse call me back. Vital Signs: 06:32 BP 141 / 111; Pulse 152; Resp 18; Pulse Ox 99% on R/A; Weight 81.65 kg (R); Height 5 [facility] ft. 2 in. (R); 06:34 BP 154 / 116; Pulse 65; Resp 24; Pulse Ox 100% on R/A; km8 06:36 BP 147 / 91; Pulse 79; Resp 20; Pulse Ox 100% on 12 lpm Non-rebreather mask; 8 06:39 BP 145 / 102; Pulse 75; Resp 22; Pulse Ox 100% on 12 lpm Non-rebreather mask; 8 06:42 BP 148 / 94; Pulse 73; Resp 20; Pulse Ox 100% on Non-rebreather mask; 8 06:55 BP 131 / 88; Pulse 74; Resp 20; Pulse Ox 100% on Non-rebreather mask; 8 07:16 BP 138 / 87; Pulse 71; Resp 18 S; Pulse Ox 99% on 3 lpm NC; Pain 0/10; kc6 07:53 BP 120 / 77; Pulse 62; Resp 16 S; Pulse Ox 99% on 3 lpm NC; Pain 0/10; kc6 08:48 BP 107 / 74; Pulse 62; Resp 14 S; Pulse Ox 96% on R/A; Pain 0/10; kc6 09:35 BP 115 / 78; Pulse 60; Resp 14 S; Pulse Ox 99% on R/A; Pain 0/10; kc6 10:20 BP 125 / 78; Pulse 58; Resp 20 S; Pulse Ox 100% on R/A; kc6 06:32 Body Mass Index 32.92 (81.65 kg, 157.48 cm) km8 07:16 Pain Scale: Adult kc6 07:53 Pain Scale: Adult kc6 08:48 Pain Scale: Adult kc6 09:35 Pain Scale: Adult kc6 Vitals: 07:00 Cardiac Rhythm Assessment Other ventricular trigeminy. kc6 08:47 Cardiac Rhythm Assessment Sinus rhythm. kc6 Laron Coma Score: 06:32 Eye Response: spontaneous(4). Motor Response: obeys commands(6). Verbal Response: km8 oriented(5). Total: 15. ED Course: 06:32 Patient arrived in ED. jj6 06:32 Maintain EMS IV. Dressing intact. Good blood return noted. Site clean \\T\\ dry. Gauge \\T\\ km 8 site: 20 gauge right hand. 06:32 Arm band placed on right wrist. km8 06:32 Patient has correct armband on for positive identification. Placed in gown. Bed in low km8 position. Call light in reach. Side rails up X 1. Client placed on continuous cardiac and pulse oximetry monitoring. NIBP monitoring applied. 06:40 Assist provider with cardioversion (synchronized) with pads, for treatment of A fib km8 with 200 joules Set up for procedure. Performed by Дмитрий Isaac MD Monitored with lunchroom monitor, pulse ox, Post procedure rhythm is sinus rhythm. Patient tolerated well. 06:43 Дмитрий Isaac MD is Attending Physician. sp4 06:54 Inserted saline lock: 20 gauge in left antecubital area, using aseptic technique. Blood oe collected. 06:55 Triage completed. km8 07:00 Oxygen administration via nasal cannula \\T\\ 3L/min. kc6 07:00 Report received from Patricia Thomas, RN and GEORGIE Zelaya. kc6 07:06 XRAY Chest (1 view) In Process Unspecified. EDMS 07:08 Attending Physician role handed off by Дмитрий Isaac MD rn 07:08 Rufus Torres MD is Attending Physician. rn 07:58 Reinaldo Reddy MD is Hospitalizing Provider. rn 10:21 Patient admitted, IV remains in place. kc6 Administered Medications: 06:39 Drug: Etomidate IVP 20 mg IVP once Route: IVP; Site: right hand; tm6 07:00 Follow up: Response: No adverse reaction; Anxiety decreased; RASS: Alert and Calm (0) kc6 06:51 Drug: NS 0.9% IV 1000 ml IV at 125 ml/hr continuous Route: IV; Rate: 125 ml/hr; Site: tm6 left antecubital; 08:48 Follow up: Response: No adverse reaction; IV Status: Infusion continued upon admission; kc6 IV Intake: 1000ml 06:54 Drug: amiodarone IVPB 900 mg, D5W IV 500 ml IVPB at 1 mg/min continuous; for 6 hrs, tm6 then change to 0.5 mg/min Route: IVPB; Rate: 1 mg/min; Site: left antecubital; 13:28 Follow up: Response: No adverse reaction; Cardiac rhythm changed; IV Status: Infusion kc6 continued upon admission; IV Intake: 500ml 07:14 Drug: morphine IVP or IV 4 mg IVP once over 4 mins Route: IVP; Infused Over: 4 mins; kc6 Site: right hand; 07:52 Follow up: Response: No adverse reaction; Pain is decreased; RASS: Alert and Calm (0) kc6 07:15 Drug: Ondansetron IVP 4 mg IVP once; over 2 minutes Route: IVP; Site: right hand; kc6 07:53 Follow up: Response: No adverse reaction kc6 Medication: 06:32 VIS not applicable for this client. km8 Intake: 08:48 IV: 1000ml; Total: 1000ml. kc6 13:28 IV: 500ml; Total: 1500ml. kc6 Outcome: 07:59 Decision to Hospitalize by Provider. rn 10:21 Admitted to ER Hold. Please see [facility] for further documentation. kc6 10:21 Condition: improved 10:21 Instructed on the need for admit, 17:22 Patient left the ED. kc6 Signatures: Dispatcher [employer] EDMS Rufus Torres MD MD rn Espinosa, Orlando oe Jeffries, Jennifer jj6 Delaney Dhaliwal RN RN kc6 Дмитрий Isaac MD MD sp4 Patricia Thomas RN RN km8 Nathalie Cantu RN RN tm6 Corrections: (The following items were deleted from the chart) 06:57 06:51 Etomidate IVP 20 mg IVP in right hand tm6 tm6 06:57 06:56 PMHx: CABGx4 (Hypertensive disorder); km8 km8 07:00 06:32 Cardiovascular: Denies chest pain, shortness of breath, Capillary refill < 3 km8 seconds Patient's skin is warm and dry. Rhythm is ventricular tachycardia km8 07:02 06:32 No provider procedures requiring assistance completed. km8 km8 13:28 08:48 Response: No adverse reaction; IV Status: Infusion continued upon admission; IV kc6 Intake: 500ml kc6
--- NOTE | 2023-08-15 07:59 | EDPHYS ---
Physician Documentation [facility] Name: Sacha Jones Age: 67 yrs Sex: Male : 1955 Arrival Date: 08/15/2023 Time: 06:31 Bed 3 Private MD: ED Physician Rufus Torres HPI: 08/15 06:45 This 67 yrs old Male presents to ER via Unassigned with complaints of rapid sp4 heart rate. . 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 At that time patient's defibrillator was disconnected secondary to the fact that he no longer needed it. Patient this morning woke up with a rapid heart rate and feeling unwell and called EMS. EMS reported patient was not ventricular tachycardia but had stable blood pressure. Patient was given amiodarone 150 mg bolus while in the route to the hospital with no improvement in heart rate. Arrival EKG revealed wide-complex tachycardia at 140 bpm. Patient was administered synchronized cardioversion with etomidate sedation at 200 J on arrival. Patient was cardioverted into the sinus rhythm with first-degree AV block with premature ventricular complexes. Current rate of 74 bpm. . Historical: - Allergies: 06:56 No Known Allergies; km8 - PMHx: 06:56 cardiac ablation (Hypertensive disord); defibrillator / pacemaker; HLD; Hypertensive km8 disorder; - PSHx: 06:56 Coronary artery bypass graft; ablation; km8 - Immunization history:: Client reports receiving the 2nd dose of the Covid vaccine, Flu vaccine is up to date. - Social history:: Smoking status: Patient denies any tobacco usage or history of. Patient uses alcohol, but reports only rare drinking. Patient/guardian denies using street drugs. - Family history:: not pertinent. ROS: 06:45 Constitutional: Negative for fever, chills, and weight loss, positive palpitations sp4 positive generalized weakness . 06:45 All other systems are negative, Exam: 06:45 Constitutional: This is a well developed, well nourished patient who is awake, alert, sp4 pale appearing, some diaphoresis, rapid tachycardia on arrival at 148. Blood pressure is stable. Head/Face: Normocephalic, atraumatic. Eyes: Pupils equal round and reactive to light, extra-ocular motions intact. Lids and lashes normal. Conjunctiva and sclera are not injected. Cornea within normal limits. Periorbital areas with no swelling, redness, or edema. ENT: Nares patent. No nasal discharge, no septal abnormalities noted. Tympanic membranes are normal and external auditory canals are clear. Oropharynx with no redness, swelling, or masses, exudates, or evidence of obstruction, uvula midline. Mucous membranes moist. Neck: Trachea midline, no thyromegaly or masses palpated, and no cervical lymphadenopathy. Supple, full range of motion without nuchal rigidity, or vertebral point tenderness. Chest/axilla: Normal chest wall appearance and motion. Nontender with no deformity. No lesions are appreciated. Cardiovascular: Rapid tachycardia , Irregular pulse. No gallops, murmurs, or rubs. Normal PMI, no JVD. No pulse deficits. Respiratory: Lungs have equal breath sounds bilaterally, clear to auscultation and percussion. No rales, rhonchi or wheezes noted. No increased work of breathing, no retractions or nasal flaring. Abdomen/GI: Soft, non-tender, with normal bowel sounds. No distension or tympany. No guarding or rebound. No evidence of tenderness throughout. Back: No spinal tenderness. No costovertebral tenderness. Skin: Warm, dry with normal turgor. Normal color with no rashes, no lesions, and no evidence of cellulitis. MS/ Extremity: Pulses equal, no cyanosis. Neurovascular intact. Full, normal range of motion. Neuro: Awake and alert, GCS 15, oriented to person, place, time, and situation. Cranial nerves II-XII grossly intact. Motor strength 5/5 in all extremities. Sensory grossly intact. Psych: Awake, alert, with orientation to person, place and time. Behavior, mood, and affect are within normal limits 06:45 ECG was reviewed by the Attending Physician. Initial EKG 0 633 -EKG reveals sp4 wide-complex tachycardia at 148 bpm appears regular tachycardia. Suspect atrial fibrillation at the rate of 148. 06:45 Repeat EKG after synchronized cardioversion -EKG time 0 646 sinus rhythm with first-degree AV block with PVCs, left axis deviation, no ST elevation or depression. Vital Signs: 06:32 BP 141 / 111; Pulse 152; Resp 18; Pulse Ox 99% on R/A; Weight 81.65 kg (R); Height 5 km8 ft. 2 in. (R); 06:34 BP 154 / 116; Pulse 65; Resp 24; Pulse Ox 100% on R/A; km8 06:36 BP 147 / 91; Pulse 79; Resp 20; Pulse Ox 100% on 12 lpm Non-rebreather mask; km8 06:39 BP 145 / 102; Pulse 75; Resp 22; Pulse Ox 100% on 12 lpm Non-rebreather mask; km8 06:42 BP 148 / 94; Pulse 73; Resp 20; Pulse Ox 100% on Non-rebreather mask; 8 06:55 BP 131 / 88; Pulse 74; Resp 20; Pulse Ox 100% on Non-rebreather mask; km8 07:16 BP 138 / 87; Pulse 71; Resp 18 S; Pulse Ox 99% on 3 lpm NC; Pain 0/10; kc6 07:53 BP 120 / 77; Pulse 62; Resp 16 S; Pulse Ox 99% on 3 lpm NC; Pain 0/10; kc6 08:48 BP 107 / 74; Pulse 62; Resp 14 S; Pulse Ox 96% on R/A; Pain 0/10; kc6 09:35 BP 115 / 78; Pulse 60; Resp 14 S; Pulse Ox 99% on R/A; Pain 0/10; kc6 10:20 BP 125 / 78; Pulse 58; Resp 20 S; Pulse Ox 100% on R/A; kc6 06:32 Body Mass Index 32.92 (81.65 kg, 157.48 cm) km8 07:16 Pain Scale: Adult kc6 07:53 Pain Scale: Adult kc6 08:48 Pain Scale: Adult kc6 09:35 Pain Scale: Adult kc6 Laron Coma Score: 06:32 Eye Response: spontaneous(4). Motor Response: obeys commands(6). Verbal Response: km oriented(5). Total: 15. MDM: 07:01 Patient medically screened. sp4 07:12 Differential Diagnosis altered mental status, sepsis, flu, Atrial fib . Data reviewed: sp4 vital signs, nurses notes, EMS record, old medical records, lab test result(s), EKG, radiologic studies, plain films. Transition of care: After a detail discussion of the patient's case, care is transferred to Rufus Torres MD. 07:46 Counseling: I had a detailed discussion with the patient and/or guardian regarding the rn historical points, exam findings, and any diagnostic results supporting the discharge/admit diagnosis, lab results, radiology results, the need for further work-up and treatment in the hospital. Response to treatment: the patient's symptoms have markedly improved after treatment, and as a result, I will admit patient. 07:46 ED course: Patient cardioverted with electricity, now sinus with PVCs. Amiodarone pattern keeper continuing. Patient feels much better. Troponin negative. Sees Dr. Reeves for cardiology. Will admit to Dr. Reddy for further care and observation.. 07:58 Consideration of Admission/Observation Patient was admitted/placed on observation. rn Escalation of care including admission/observation considered. Care significantly affected by the following chronic conditions: Atrial fibrillation. 08/15 06:43 Order name: Basic Metabolic Panel; Complete Time: 07:26 sp4 08/15 06:43 Order name: CBC with Diff; Complete Time: 07:25 4 08/15 06:43 Order name: LFT's; Complete Time: 07:26 4 08/15 06:43 Order name: Magnesium; Complete Time: 07:26 sp4 08/15 06:43 Order name: NT PRO-BNP; Complete Time: 07:4 08/15 06:43 Order name: PT-INR; Complete Time: 07:25 4 08/15 06:43 Order name: Troponin HS; Complete Time: 07: sp4 08/15 12:36 Order name: Troponin High Sensitivity EDMS 08/15 13:35 Order name: Ptt, Activated kc6 08/15 14:04 Order name: PTT, Activated Partial Thromb EDMS 08/15 16:57 Order name: Troponin High Sensitivity EDMS 08/15 06:43 Order name: XRAY Chest (1 view); Complete Time: 07:25 sp4 08/15 06:43 Order name: EKG; Complete Time: 06:44 4 08/15 06:43 Order name: Cardiac monitoring; Complete Time: 06:51 4 08/15 06:43 Order name: EKG - Nurse/Tech; Complete Time: 06:51 4 08/15 06:43 Order name: IV Saline Lock; Complete Time: 06:51 sp4 08/15 06:43 Order name: Labs collected and sent; Complete Time: 06:51 sp4 08/15 06:43 Order name: O2 Per Protocol; Complete Time: 06:51 sp4 08/15 06:43 Order name: O2 Sat Monitoring; Complete Time: 06:51 sp4 EC:45 Rate is 148 beats/min. Rhythm is regular, A fib with Rapid ventricular response. sp4 Clinical impression: Atrial Fibrillation. Interpreted by me. Reviewed by me. Administered Medications: 06:39 Drug: Etomidate IVP 20 mg IVP once Route: IVP; Site: right hand; tm6 07:00 Follow up: Response: No adverse reaction; Anxiety decreased; RASS: Alert and Calm (0) kc6 06:51 Drug: NS 0.9% IV 1000 ml IV at 125 ml/hr continuous Route: IV; Rate: 125 ml/hr; Site: tm6 left antecubital; 08:48 Follow up: Response: No adverse reaction; IV Status: Infusion continued upon admission; kc6 IV Intake: 1000ml 06:54 Drug: amiodarone IVPB 900 mg, D5W IV 500 ml IVPB at 1 mg/min continuous; for 6 hrs, tm6 then change to 0.5 mg/min Route: IVPB; Rate: 1 mg/min; Site: left antecubital; 13:28 Follow up: Response: No adverse reaction; Cardiac rhythm changed; IV Status: Infusion kc6 continued upon admission; IV Intake: 500ml 07:14 Drug: morphine IVP or IV 4 mg IVP once over 4 mins Route: IVP; Infused Over: 4 mins; kc6 Site: right hand; 07:52 Follow up: Response: No adverse reaction; Pain is decreased; RASS: Alert and Calm (0) kc6 07:15 Drug: Ondansetron IVP 4 mg IVP once; over 2 minutes Route: IVP; Site: right hand; kc6 07:53 Follow up: Response: No adverse reaction kc6 Disposition Summary: 08/15/23 07:59 Hospitalization Ordered Notes: Hospitalization Status: Inpatient Admission rn Provider: Reinaldo Reddy rn Condition: Stable rn Problem: new rn Symptoms: have improved rn Bed/Room Type: Standard rn Location: Telemetry/MedSurg (Inpatient)(08/15/23 16:27) bd Room Assignment: 213(08/15/23 16:27) bd Diagnosis - Paroxysmal atrial fibrillation - with RVR rn Forms: - Medication Reconciliation Form rn - SBAR form rn - Leadership Thank You Letter admissions rn time excluding procedures: 07:58 Critical care time: Bedside Care: 30 minutes, Consultation: 5 minutes. Total time: 35 rn minutes Signatures: Dispatcher [employer] EDMS Latanya Potter Roman, MD MD rn Campbell, Kaitlyn, RN RN kc6 Дмитрий Isaac MD MD sp4 Patricia Thomas RN RN 8 Nathalie Cantu RN RN tm6 Corrections: (The following items were deleted from the chart) 06:57 06:56 PMHx: CABGx4 (Hypertensive disorder); [facility] km8 10:32 07:59 Telemetry/MedSurg (Inpatient) rn bd 10:32 07:59 rn bd 16:27 10:32 [facility] ER HOLD bd bd 16:27 10:32 ERHOLD- bd bd
[2023-08-15] MEDS ORDERED: ONDANSETRON 4 MG/2 ML VIAL IV PRN (10:20)
[2023-08-15 10:42] VITALS: BMI 32.5
[2023-08-15] MEDS ORDERED: HEPARIN/D5W 25,000 UNIT/500 ML BAG IV ONE (13:49)
[2023-08-15] MEDS: HEPARIN/D5W 25,000 UNIT/500 ML BAG IV SCH (14:45)
[2023-08-15] MEDS ORDERED: AMIODARONE HCL 900 MG in Dextrose 5%-Water 482 ML IV SCH (18:00)
[2023-08-15] MEDS: AMIODARONE HCL 900 MG in Dextrose 5%-Water 482 ML IV SCH (18:34)
--- NOTE | 2023-08-15 20:21 | P.HP ---
Certification for Inpatient Patient admitted to: Inpatient With expected LOS: >2 Midnights Practitioner: I am a practitioner with admitting privileges, knowledge of patient current condition, hospital course, and medical plan of care. Services: Services provided to patient in accordance with Admission requirements found in Title 42 Section 412.3 of the Code of Federal Regulations Patient History Date of Service: 08/15/23 Reason for admission: PALPITATIONS History of Present Illness: HEIDI HAS BEEN ON AMIODARONE FOR 10 YEARS. RECENTLY EPS IN ATTEMPT TO GET HIM OFF AMIO, DID ABLATION BUT IT DID NOT LAST. HE RETURNS TO [facility] WITH RAPID A FIB. HE IS ON AMIO IV NOW AND BACK IN SINUS BY THIS PM. HE HAS CONGESTIVE CARDIOMYOPATY WITH DEBRILLATOR IN PLACE. HE HAS NO CHEST PAIN. Allergies No Known Allergies Allergy (Verified 04/27/22 23:09) Home medications list reviewed: Yes Home Medications: Allopurinol 100 mg PO DAILY 08/15/23 Apixaban [Eliquis] 5 mg PO BID 08/15/23 B,C/Ferrous Fum/FA/D3/Zinc Ox [Prorenal Vital Multivit Tab] 1 each PO DAILY 08/15/23 Carvedilol [Coreg] 25 mg PO BID 6AM 6PM 08/15/23 Chlorthalidone 25 mg PO DIRECTED 08/15/23 Eplerenone 25 mg PO DAILY 08/15/23 Sacubitril/Valsartan [Entresto 97 mg-103 mg Tablet] 1 each PO BID 08/15/23 Simvastatin 10 mg PO DAILY 08/15/23 - Past Medical/Surgical History Has patient received pneumonia vaccine in the past: Yes Diabetic: No -: HTN -: high cholesterol -: pacemaker - Social History Smoking Status: Unknown if ever smoked Alcohol use: No CD- Drugs: No Caffeine use: No Place of Residence: Home Review of Systems 10-point ROS is otherwise unremarkable Physical Examination - Vital Signs Temperature: 97.6 F Blood Pressure: 139/90 Pulse: 61 Respirations: 18 Pulse Ox (%): 98 - Physical Exam General: Oriented x3, Mild distress HEENT: Atraumatic, PERRLA, Mucous membr. moist/pink, EOMI, Sclerae nonicteric Neck: Supple, 2+ carotid pulse no bruit, No LAD, Without JVD or thyroid abnormality Respiratory: Clear to auscultation bilaterally, Normal air movement Cardiovascular: Regular rate/rhythm, Normal S1 S2 (SINCE AM HE IS NOW IN SINUS.) Gastrointestinal: Normal bowel sounds, No tenderness Musculoskeletal: No tenderness Integumentary: No rashes Neurological: Normal gait, Normal speech, Normal strength at 5/5 x4 extr, Normal tone, Normal affect Lymphatics: No axilla or inguinal lymphadenopathy - Studies Laboratory Data (last 24 hrs) 08/15/23 08/15/23 08/15/23 06:51 06:51 06:51 WBC 9.20 Hgb 17.1 Hct 49.8 H Plt Count 197 PT 14.3 H INR 1.31 Sodium 136 Potassium 3.6 BUN 23 H Creatinine 2.01 H Glucose 202 H Magnesium 2.1 Total Bilirubin 1.1 H AST 17 ALT 29 Alkaline Phosphatase 82 Assessment and Plan - Problems (Diagnosis) (1) Rapid atrial fibrillation Current Visit: Yes Status: Acute Plan: HE IS BACK IN SINUS HE MAY END UP WITH RELATIONS SPECIALIST AMIODARONE AGAIN. HEPARIN IV BY DR. MASON RESUME ELIQUIS AFTER THAT. (2) LBBB (left bundle branch block) Current Visit: Yes Status: Acute (3) Elevated troponin Current Visit: Yes Status: Acute Plan: MOST OFTEN FROM CARDIAC STRESS AND NOT CT. - Advance Directives Does patient have a Living Will: Yes Does patient have a Durable POA for Healthcare: Yes
[2023-08-16 03:21] LABS: Absolute Lymphocytes (CBC) 1.6 K/uL (0.7-4.9); Hematocrit 45.2 % (39.6-49.0); Lymphocytes % 21.6 % (15.3-44.8); MCV 96.6 fL (80-100); MPV 7.5 fL (7.6-11.3); Platelets 139 thou/uL (152-406); RBC Red Blood Cell Count 4.68 M/uL (4.33-5.43)
[2023-08-16 03:31] LABS: Potassium 3.3 mEq/L (3.5-5.1)
[2023-08-16] MEDS ORDERED: HOME MED 1 EA UNK (Simvastatin [Simvastatin] 10 MG Tablet) PO SCH (09:00)
[2023-08-16] MEDS ORDERED: EPLERENONE 25 MG PO SCH (09:00)
[2023-08-16] MEDS: allopurinoL 100 MG TAB PO SCH ×2 (09:00→10:16)
[2023-08-16] MEDS: SACUBITRIL PO SCH ×2 (09:00→21:45)
[2023-08-16] MEDS: VALSARTAN PO SCH ×2 (09:00→21:45)
[2023-08-16] MEDS ORDERED: POTASSIUM 25 MEQ EFFERV TAB PO ONE (11:33)
--- NOTE | 2023-08-16 13:25 | EKG ---
Test Date: 2023-08-15 Test Time: 10:52:31 Grinder Mill Operator: CAROLEE MEASUREMENT RESULTS: Intervals: Rate: 58 [place]: 246 QRSD: 178 QT: 486 QTc: 477 [place]: P: 37 [place]: 246 QRS: 4 T: 203 INTERPRETIVE STATEMENTS: Sinus bradycardia with 1st degree AV block Nonspecific intraventricular block Possible Lateral infarct, age undetermined Abnormal ECG Compared to ECG 08/14/2023 14:22:22 Myocardial infarct finding now present Sinus rhythm no longer present Ventricular premature complex(es) no longer present Electronically Signed On 08-16-23 13:22:24 CHILLER TENDER by Zachary Reeves
--- NOTE | 2023-08-16 13:26 | EKG ---
Test Date: 2023-08-15 Test Time: 06:46:07 Lead Laying And Gluing Machine Operator: ROD MEASUREMENT RESULTS: Intervals: Rate: 74 [place]: 260 QRSD: 184 QT: 450 QTc: 499 [place]: P: 31 [place]: 260 QRS: -33 T: 89 INTERPRETIVE STATEMENTS: Sinus rhythm with 1st degree AV block with occasional premature ventricular complexes Left axis deviation Nonspecific intraventricular block Possible Lateral infarct, age undetermined Abnormal ECG Compared to ECG 08/15/2023 06:33:46 First degree AV block now present Left-axis deviation now present Wide-QRS tachycardia no longer present Right ventricular hypertrophy no longer present Myocardial infarct finding still present Electronically Signed On 08-16-23 13:22:44 CONTENT ENGINEER by Zachary Reeves
--- NOTE | 2023-08-16 13:27 | EKG ---
Test Date: 2023-08-15 Test Time: 06:33:46 Soft Work Wrapper Layer And Examiner: ROD MEASUREMENT RESULTS: Intervals: Rate: 148 [place]: QRSD: 184 QT: 326 QTc: 511 [place]: P: [place]: QRS: 133 T: -46 INTERPRETIVE STATEMENTS: Suspect arm lead reversal, interpretation assumes no reversal Wide QRS tachycardia with frequent premature ventricular complexes Nonspecific intraventricular block Right ventricular hypertrophy Cannot rule out Inferior infarct, age undetermined Anterolateral infarct, age undetermined Abnormal ECG Compared to ECG 08/14/2023 14:22:22 Wide-QRS tachycardia now present Right ventricular hypertrophy now present Myocardial infarct finding now present Sinus rhythm no longer present First degree AV block no longer present Electronically Signed On 08-16-23 13:22:47 CAMERA ASSEMBLER by Zachary Reeves
[2023-08-16] MEDS ORDERED: AMIODARONE HCL 150 MG/3 ML INJ IV ONE (14:32)
[2023-08-16] MEDS ORDERED: SODIUM CHL 0.9% 1000 ML BAG IV ONE (14:32)
[2023-08-16] MEDS ORDERED: D5W IV ONE (14:32)
[2023-08-16] MEDS ORDERED: SODIUM CHL 0.9% 250 ML BAG IV ONE (14:32)
[2023-08-16] MEDS: AMIODARONE HCL 900 MG in Dextrose 5%-Water 482 ML IV SCH (17:26)
[2023-08-16] MEDS: HEPARIN/D5W 25,000 UNIT/500 ML BAG IV SCH (17:30)
[2023-08-16] MEDS ORDERED: carvediloL 25 MG TAB PO SCH (18:00)
--- NOTE | 2023-08-16 18:45 | PN ---
Date of Progress Note: 08/16/2023 Subjective: Patient is seen by bedside. Doing well. No further runs of V-tach. Review of Systems: No chest pain, shortness of breath, orthopnea, or cough. No nausea, vomiting, or diarrhea. All othe r systems were reviewed, they were negative. Objective: Vital Signs: Reviewed. Head and Neck: Pupils are equal, reactive to light. Intact eye movements. No JVD. No cervical lym phadenopathy. Neck is supple. Thyroid is not enlarged. Lungs: Clear to auscultation bilaterally. No rhonchi, wheezing, or crackles. No accessory muscle u se. Heart: Regular rate and rhythm. No extra sounds. Abdomen: Soft, nontender. Bowel sounds positive. No organomegaly. No masses or hernia. No rigidi ty or rebound. Extremities: No clubbing or cyanosis. Intact pulses. Skin: No rash or nodule. Neurologic: Alert, awake, oriented x3. No acute focal deficits appreciated. Investigations: BUN is 21, creatinine is 1.42, and hemoglobin is 15.6. Assessment And Recommendations: 1.Ventricular tachycardia and ventricular fibrillation with elevated troponin. This is probably a n ip-[id number] myocardial infarction. Continue IV heparin drip and then plan for coronary angiogram tomorrow and continue baby aspirin. 2.Ventricular tachycardia/ventricular fibrillation. Continue 24 hours of amiodarone load and then s witch him to 200 mg by mouth twice a day by tomorrow and keep pvc monitor and plan for coronary angiogram as outlined above. 3.Dyslipidemia. Continue statin. 4.Hypertension. Blood pressure is controlled. 5.Renal failure, it seems to be acute on chronic. His creatinine is improving with hydration and continue to monitor. 6.Kfn-[id number]-[id number] myocardial infarction. Plan as above. SR/MODL Voice ID: [id number] Report ID: [id number]
[2023-08-16] MEDS ORDERED: ATORVASTATIN 10 MG TAB PO SCH (21:00)
--- NOTE | 2023-08-16 21:15 | P.PN ---
Subjective Date of Service: 08/16/23 Chief Complaint: FEELS WELL Subjective: Improving PLAN IS FOR CATH IN AM PER DR MASON HE HAS HAD SOME SPISODES OF SLOW V TACH. Review of Systems 10-point ROS is otherwise unremarkable General: Weakness Physical Examination - Vital Signs Temperature: 97.8 F Blood Pressure: 136/86 Pulse: 69 Respirations: 16 Pulse Ox (%): 97 - Physical Exam General: Mild distress HEENT: Atraumatic, PERRLA, EOMI Neck: Supple, JVD not distended Respiratory: Clear to auscultation bilaterally, Normal air movement Cardiovascular: Regular rate/rhythm, Normal S1 S2 Gastrointestinal: Normal bowel sounds, No tenderness Musculoskeletal: No tenderness Integumentary: No rashes Neurological: Normal speech, Normal tone, Normal affect Lymphatics: No axilla or inguinal lymphadenopathy - Studies Medications List Reviewed: Yes Assessment And Plan - Current Problems (Diagnosis) (1) Rapid atrial fibrillation Current Visit: Yes Status: Acute Plan: HE IS BACK IN SINUS HE MAY END UP WITH LONG-TERM AMIODARONE AGAIN. HEPARIN IV BY DR. MASON RESUME ELIQUIS AFTER THAT. (2) LBBB (left bundle branch block) Current Visit: Yes Status: Acute (3) Elevated troponin Current Visit: Yes Status: Acute Plan: MOST OFTEN FROM CARDIAC STRESS AND NOT PA. (4) Ventricular tachyarrhythmia Current Visit: Yes Status: Acute Plan: INTERMIXED WITH RAPID A FIB WITH LBBB. PLAN HPI
[2023-08-17] MEDS: carvediloL 25 MG TAB PO SCH (05:06)
[2023-08-17] MEDS ORDERED: POTASSIUM CL SA 10 MEQ TAB PO ONE (08:29)
[2023-08-17] MEDS: allopurinoL 100 MG TAB PO SCH (08:40)
[2023-08-17] MEDS: SACUBITRIL PO SCH ×2 (08:42→20:35)
[2023-08-17] MEDS: VALSARTAN PO SCH ×2 (08:42→20:35)
[2023-08-17] MEDS ORDERED: LIDOCAINE 1% 20 ML MDV ONE (12:54)
[2023-08-17] MEDS ORDERED: VERAPAMIL HCL 10 MG/4 ML VIAL IV ONE (12:54)
[2023-08-17] MEDS ORDERED: HEPA 1000U/500MLS 2,000 UNIT/1,000 ML BAG IV ONE (12:54)
[2023-08-17] MEDS ORDERED: FENTANYL CITR 100 MCG/2 ML ONE (12:54)
[2023-08-17] MEDS ORDERED: HEPARIN 5000 UNIT/ML 1 ML VIAL ONE (12:55)
[2023-08-17] MEDS ORDERED: TICAGRELOR 90 MG TABLET PO ONE (12:55)
[2023-08-17] MEDS ORDERED: CLOPIDOGREL 75 MG TABLET ONE (12:55)
[2023-08-17] MEDS ORDERED: MIDAZOLAM HCL 2 MG/2 ML INJ ONE (12:55)
[2023-08-17] MEDS ORDERED: ASPIRIN 325 MG TAB ONE (12:57)
--- NOTE | 2023-08-17 14:04 | P.PN ---
Subjective Date of Service: 08/17/23 Chief Complaint: FEELS WELL Subjective: Improving PLAN IS FOR CATH IN AM PER DR MASON HE HAS HAD SOME EPISODES OF SLOW V TACH. HE HAS BEEN DOWN FOR CATH FOR NOW. I WILL FU IN SEWING MACHINE MECHANIC OR CALL HIM LATER. Physical Examination - Vital Signs Temperature: 97.8 F Blood Pressure: 133/81 Pulse: 60 Respirations: 16 Pulse Ox (%): 95 - Studies Medications List Reviewed: Yes Assessment And Plan - Current Problems (Diagnosis) (1) Rapid atrial fibrillation Current Visit: Yes Status: Acute Plan: HE IS BACK IN SINUS HE MAY END UP WITH CUSTODIAL AMIODARONE AGAIN. HEPARIN IV BY DR. MASON RESUME ELIQUIS AFTER THAT. (2) LBBB (left bundle branch block) Current Visit: Yes Status: Acute (3) Elevated troponin Current Visit: Yes Status: Acute Plan: MOST OFTEN FROM CARDIAC STRESS AND NOT WI. (4) Ventricular tachyarrhythmia Current Visit: Yes Status: Acute Plan: INTERMIXED WITH RAPID A FIB WITH LBBB. PLAN HPI
[2023-08-17] MEDS ORDERED: NA CHLORIDE 0.9% 1,000 ML ONE (14:35)
[2023-08-17] MEDS ORDERED: ADENOSINE 6 MG/ 2ML VIAL IV ONE (15:10)
[2023-08-17] MEDS ORDERED: EPLERENONE 25 MG PO SCH (18:00)
[2023-08-17] MEDS: AMIODARONE HCL 900 MG in Dextrose 5%-Water 482 ML IV SCH (18:00)
[2023-08-17] MEDS ORDERED: carvediloL 12.5 MG TAB PO SCH (18:00)
--- NOTE | 2023-08-17 19:38 | PN ---
Date of Progress Note: 08/17/2023 Subjective: Seen at bedside, doing very well. No further episodes of ventricular tachycardia. Review of Systems: No chest pain, shortness of breath, orthopnea, or cough. No nausea, vomiting, diarrhea. All other s ystems were reviewed, they are negative. Objective: Vital signs: Reviewed. Head and Neck: Pupils are equal, reactive to light. Intact eye movements. No JVD. No cervical lym phadenopathy. Neck: Supple. Thyroid is not enlarged. Lungs: Clear to auscultation bilaterally. No rhonchi, rales, or crackles. No accessory muscle use. Heart: Regular rate and rhythm. No extra sounds. Abdomen: Soft, nontender. Bowel sounds positive. No organomegaly. No masses or hernia. No rigidi ty or rebound. Extremities: No clubbing, cyanosis. Intact pulses. Skin: No rashes. Neurologic: Alert, awake, oriented x3. No gross focal deficits appreciated. Investigations: BUN 21, creatinine 1.42. Assessment/recommendation: 1.Ventricular tachycardia/ventricular fibrillation with elevated troponin. He is for coronary angio gram today. Discontinue IV amiodarone, switch him to oral 200 mg twice a day. 2.History of atrial fibrillation. Hence, continue Eliquis. 3.Coronary artery disease with elevated troponin. Possible non-ST elevation myocardial infarction a nd coronary angiogram today and plan accordingly. 4.Dyslipidemia. Continue statin. SR/MODL Voice ID: [id number] Report ID: [id number]
--- NOTE | 2023-08-17 19:44 | CON ---
Date of Consultation: 08/15/2023 Reason For Consultation: Ventricular tachycardia and elevated troponin. History Of Present Illness: This is a 67-year-old male with past medical history of coronary artery disease, atrial fibrillation, congestive heart failure with ICD in place. Has dyslipidemia as well. Presented to the emergency room shortness of breath, chest tightness, and palpitations, f ound to be in wide-complex tachycardia. Medications would not slow down the rhythm, so the patient w as to the emergency room. Then, we had the ICD device interrogated and it was a slow vent ricular tachycardia and apparently had appropriate check for ventricular fibrillation on this past [place] nd. Past Medical History: As outlined above in the HPI. Medications: Refer reconciliation sheet for detailed list. Allergies: NO KNOWN DRUG ALLERGIES. Family History: No premature coronary artery disease or cancer. Social History: Does not smoke or drink. Does not use any drugs. Review of Systems: All systems reviewed and they were negative except as mentioned in the HPI. Physical Examination: Vital Signs: Reviewed. Head and Neck: Pupils are equal, reactive to light. Intact eye movements. No JVD. No cervical lym phadenopathy. Neck is supple. Thyroid is not enlarged. Lungs: Clear to auscultation bilaterally. No rhonchi, rales, or crackles. No accessory muscle use. Heart: Regular rate and rhythm. No extra sounds. Abdomen: Soft, nontender. Bowel sounds positive. No organomegaly. No masses or hernia. No rigidi ty or rebound. Extremities: No edema, clubbing, cyanosis. Intact pulses. Skin: No rashes. Neurologic: Alert, awake, oriented x3. No acute focal deficits appreciated. Investigations: Troponin is 1246, first set was 220. BUN is 23, creatinine 2.0. Assessment/recommendation: 1.Ventricular fibrillation/ventricular tachycardia with elevated troponin. This could be ischemic. Admit the patient. Start on IV heparin and start on IV amiodarone. Load for 24 hours and then swit ch to oral 200 mg twice a day afterwards. 2.Non-ST elevation myocardial infarction. Start baby aspirin, IV heparin and plan for coronary shahnaz ogram in the next 48 hours. The patient was on Eliquis. We will wait until 48 hours since the last dose as the patient is not having active chest pain. 3.Congestive heart failure, appears to be euvolemic. Continue home medication. 4.Acute on chronic renal failure. Gentle hydration is recommended. Re-evaluate labs in the morning . SR/MODL Voice ID: [id number] Report ID: [id number]
--- NOTE | 2023-08-17 20:02 | OP ---
Date of Procedure: 08/17/2023 Surgeon: KARYNA MASON Procedure Performed: 1.Selective coronary angiogram with bypass graft study. 2.Left heart catheterization. 3.PCI of severe mid SVG graft to diagonal 1 branch using 3.0 x 8 mm Synergy drug-eluting stent post dilated using a 3.5 x 8 mm NC balloon. Indication: [id number] myocardial infarction/ventricular fibrillation. Access: Right femoral artery 6-Liberian, closed with 6-Liberian Angio-Seal. Complications: None. Bleeding: Less than 50 mL. Anesthesia: Total sedation time was 75 minutes, used fentanyl and Versed. Description Of Procedure: After risks, benefits, and alternatives were explained, patient agreed to procedure and signed informed consent. Patient was brought into the cardiac catheterization laborato ry, prepped and draped in sterile fashion. Then accessed right femoral artery using micropuncture ki t, ultrasound guidance, and fluoroscopy and placed 6-Liberian Mcconnell sheath and took 6-Liberian JL4 cat heter into aortic root and engaged left main, took standard views, exchanged for 6-Liberian JR4 cathete r, engaged the RCA and then the SVG graft to RCA, SVG graft to OM, and SVG graft to diagonal and then engaged the COLÓN to LAD and took standard views and then gave systemic heparin to assure ACT level a allen 250 and loaded with 180 mg of Brilinta and took a 6-Liberian JR4 guide and engaged the SVG graft t o the diagonal and then took a run-through wire into the diagonal branch and placed it distally and t hen using a 3.0 x 8 mm Synergy drug-eluting stent, direct stenting was performed at the area of steno sis. The stent expanded very well and then I used 3.5 x 8 mm NC balloon to post dilate. Excellent r esult at the end with BRENDA-3 flow. The wire was removed. Final angiogram was satisfactory and then removed the guide and sheath and 6-Liberian Angio-Seal was used for closure with good hemostasis. Findings: 1.Left main normal. 2.LAD, VERIFYING MACHINE OPERATOR proximally 100%. 3.Left circumflex 100% occluded proximally. 4.RCA diffusely diseased and then becomes VERIFYING MACHINE OPERATOR 100% occluded in the mid segment. Graft Study: 1.Patent SVG graft to RCA. 2.Patent SVG graft to OM. 3.Patent COLÓN to LAD. 4.Patent SVG graft to diagonal 1, but it has 90% stenosis in mid segment, status post successful PCI as above. 5.LVEDP elevated at 23 mmHg. Conclusion: 1.Severe multivessel [place] coronary artery disease with patent SVG graft to OM and patent SVG graft to RCA and COLÓN to LAD. 2.Severe disease of the SVG graft of the diagonal 1, status post successful PCI as above. 3.Elevated LVEDP at 23 mmHg. Plan: Aspirin, Brilinta, and recommend diuretics as well. Followup as outpatient post discharge in 1 week. SR/MODL Voice ID: [id number] Report ID: [id number]
[2023-08-17] MEDS ORDERED: ATORVASTATIN 40 MG TAB PO SCH (21:00)
[2023-08-17] MEDS: TICAGRELOR 90 MG TABLET PO SCH (21:04)
[2023-08-17] MEDS: APIXABAN 5 MG TABLET PO SCH (21:12)
[2023-08-17] MEDS: AMIODARONE HCL 200 MG TAB PO SCH (21:12)
[2023-08-18 00:57] VITALS: O2SAT 96
[2023-08-18] MEDS: carvediloL 25 MG TAB PO SCH (05:45)
[2023-08-18 07:20] LABS: Potassium 3.7 mEq/L (3.5-5.1)
[2023-08-18] MEDS: SACUBITRIL PO SCH (09:00)
[2023-08-18] MEDS: VALSARTAN PO SCH (09:00)
[2023-08-18] MEDS ORDERED: ASPIRIN EC 81 MG TAB PO SCH (09:00)
[2023-08-18] MEDS: APIXABAN 5 MG TABLET PO SCH (09:24)
[2023-08-18] MEDS: TICAGRELOR 90 MG TABLET PO SCH (09:24)
[2023-08-18] MEDS: allopurinoL 100 MG TAB PO SCH (09:24)
[2023-08-18] MEDS: AMIODARONE HCL 200 MG TAB PO SCH (09:24)
[2023-08-18 12:35] VITALS: BP 119/74; TEMP 98
--- NOTE | 2023-08-18 15:50 | P.DS ---
Admission Date: 08/15/23 Discharge Date: 08/18/23 Disposition: ROUTINE DISCHARGE Discharge Condition: FAIR Reason for Admission: FEELS WELL - Problems (1) Rapid atrial fibrillation Status: Acute (2) LBBB (left bundle branch block) Status: Acute (3) Elevated troponin Status: Acute (4) Ventricular tachyarrhythmia Status: Acute Brief History of Present Illness: HEIDI HAS BEEN ON AMIODARONE FOR 10 YEARS. RECENTLY EPS IN ATTEMPT TO GET HIM OFF AMIO, DID ABLATION BUT IT DID NOT LAST. HE RETURNS TO [facility] WITH RAPID A FIB. HE IS ON AMIO IV NOW AND BACK IN SINUS BY THIS PM. HE HAS CONGESTIVE CARDIOMYOPATY WITH DEBRILLATOR IN PLACE. HE HAS NO CHEST PAIN. HEIDI HAS HAD CATH YESTERDAY, DIAGNOAL WAS STENTED. OTHER STENTS AREGOOD. HE IS NOW ON ORAL AMIODARONE. HE WILL CONTINUE THAT, ELIQUIS FOR A FIB. PLAVIX FOR STENT AND ASPIRIN TOO. AFTER A MONTH PLAVIX WILL BE STOPPED. DR. MASON CONFIRMED THESE ORDERS. HE IS STABLE TO GO HOME. Vital Signs/Physical Exam: Temp Pulse Resp BP Pulse Ox 98.0 F 59 18 119/74 98 08/18/23 12:00 08/18/23 12:00 08/18/23 12:00 08/18/23 12:00 08/18/23 12:00 Laboratory Data at Discharge: WBC 7.60 thou/uL (4.3-10.9) 08/16/23 03:07 Hgb 15.6 g/dL (13.6-17.9) D 08/16/23 03:07 Hct 45.2 % (39.6-49.0) 08/16/23 03:07 Plt Count 139 thou/uL (152-406) L D 08/16/23 03:07 PT 14.3 SECONDS (9.5-12.5) H 08/15/23 06:51 INR 1.31 08/15/23 06:51 APTT 34.7 SECONDS (24.3-36.9) 08/18/23 02:33 Sodium 138 mEq/L (136-145) 08/18/23 06:47 Potassium 3.7 mEq/L (3.5-5.1) 08/18/23 06:47 BUN 21 mg/dL (7-18) H 08/18/23 06:47 Creatinine 1.91 mg/dL (0.70-1.30) H 08/18/23 06:47 Glucose 127 mg/dL (74-106) H 08/18/23 06:47 Magnesium 2.1 mg/dL (1.6-2.4) 08/15/23 06:51 Total Bilirubin 1.1 mg/dL (0.2-1.0) H 08/15/23 06:51 AST 17 U/L (15-37) 08/15/23 06:51 ALT 29 U/L (16-61) 08/15/23 06:51 Alkaline Phosphatase 82 U/L (45-117) 08/15/23 06:51 Home Medications: Allopurinol 100 mg PO DAILY 08/15/23 Apixaban [Eliquis] 5 mg PO BID 08/15/23 B,C/Ferrous Fum/FA/D3/Zinc Ox [Prorenal Vital Multivit Tab] 1 each PO DAILY 08/15/23 Carvedilol [Coreg] 25 mg PO [id number] 08/15/23 Eplerenone 25 mg PO DAILY 6PM 08/15/23 Sacubitril/Valsartan [Entresto 97 mg-103 mg Tablet] 1 each PO BID 08/15/23 Carvedilol [Coreg] 12.5 mg PO DAILY 6PM 08/16/23 Amiodarone HCl [Cordarone*] 200 mg PO BID tab 08/18/23 Apixaban [Eliquis] 2.5 mg PO BID #60 tablet 08/18/23 Atorvastatin Calcium [Lipitor] 40 mg PO BEDTIME #90 tab 08/18/23 Clopidogrel Bisulfate [Plavix] 75 mg PO DAILY #34 08/18/23 New Medications: Apixaban [Eliquis] 2.5 mg PO BID #60 tablet Atorvastatin Calcium [Lipitor] 40 mg PO BEDTIME #90 tab Clopidogrel Bisulfate [Plavix] 75 mg PO DAILY #34
[2023-08-18] MEDS ORDERED: carvediloL 12.5 MG TAB PO SCH (18:00)
== END 2023-08-18 14:15 | disposition home or self-care (01) | DRG 321 ==
LOC: ER 06:31 → ERHOLD 09:38 → 2ND 16:56
PROVIDERS: ADMIT Internal Medicine; ATTEND Internal Medicine
PROC: 027034Z Dilation of Coronary Artery, One Artery with Drug-eluting Intraluminal Device, Percutaneous Approach (ICD-10-PCS; principal; 2023-08-17)
PROC: 4A023N7 Measurement of Cardiac Sampling and Pressure, Left Heart, Percutaneous Approach (ICD-10-PCS; 2023-08-17)
PROC: B2111ZZ Fluoroscopy of Multiple Coronary Arteries using Low Osmolar Contrast (ICD-10-PCS; 2023-08-17)
DX: I48.0 Paroxysmal atrial fibrillation (principal); I21.4 Non-ST elevation (NSTEMI) myocardial infarction; N17.9 Acute kidney failure, unspecified; I49.01 Ventricular fibrillation; I44.0 Atrioventricular block, first degree; I42.0 Dilated cardiomyopathy; I49.3 Ventricular premature depolarization; I11.0 Hypertensive heart disease with heart failure; I50.9 Heart failure, unspecified; I47.20 Ventricular tachycardia, unspecified; E78.00 Pure hypercholesterolemia, unspecified; I44.7 Left bundle-branch block, unspecified; I25.10 Atherosclerotic heart disease of native coronary artery without angina pectoris; R79.89 Other specified abnormal findings of blood chemistry; Z95.1 Presence of aortocoronary bypass graft; Z79.01 Long term (current) use of anticoagulants; Z79.02 Long term (current) use of antithrombotics/antiplatelets; Z79.899 Other long term (current) drug therapy; Z95.810 Presence of automatic (implantable) cardiac defibrillator
CPT/HCPCS: 36415; 70450; 71045; 76937; 80048; 80076; 83690; 83735; 83880; 84132; 84484; 85025; 85347; 85610; 85730; 93005; 93458; 93880; C1725; C1760; C1893; C9600; G0269; J0153; J0282; J1644; J2001; J2250; J2405; J3010; J7030; J7050; J7060; Q9967

== ENCOUNTER 2023-11-13 10:22 | Day surgery (SDC) | payer OTHER, MEDICARE ==
[2023-11-13] MEDS: NA CHLORIDE 0.9% 500 ML ONE (11:19)
[2023-11-13] MEDS ORDERED: LIDOCAINE 2% MPF 5 ML VIAL ONE (11:23)
[2023-11-13] MEDS ORDERED: propofoL 200 MG/20 ML VIAL IV ONE (11:23)
--- NOTE | 2023-11-13 13:24 | TEE ---
TRANSESOPHAGEAL ECHOCARDIOGRAM REPORT CARDIOLOGY DEPARTMENT DATE OF STUDY: 11/13/2023 HEIGHT: 5'2" WEIGHT: 169 lbs DIAGNOSIS: POST WATCHMAN INTERNET DEVELOPER COMMENTS: MAYTE CARDIAC HISTORY: CATHERIZATION: SURGERY: PROSTHETIC VALVE: PACEMAKER: 2 DIMENSIONAL ASSESSMENT: RIGHT ATRIUM: NORMAL LEFT ATRIUM: DILATED RIGHT VENTRICLE: NORMAL LEFT VENTRICLE: NORMAL TRICUSPID VALVE: MILD TRICUSPID REGURGITATION MITRAL VALVE: MILD MITRAL REGURGITATION PULMONIC VALVE: NORMAL AORTIC VALVE: NORMAL PERICARDIAL EFFUSION: NONE AORTIC ROOT: NORMAL EJECTION FRACTION: LEFT VENTRICULAR WALL MOTION: NOT ACCESSED DOPPLER/COLOR FLOW: NOT ACCESSED COMMENTS: 1. NORMAL LEFT ATRIAL APPENDAGE CLOSURE DEVICE (WATCHMAN), NO LEAK, NO THROMBUS 2. MILD MITRAL REGURGITATION, MILD TRICUSPID REGURGITATION TECHNOLOGIST: VIJAYA LAM
[2023-11-13 13:48] VITALS: BP 116/74; TEMP 97.6; O2SAT 97
--- NOTE | 2023-11-14 02:48 | OP ---
Date of Procedure: 11/13/2023 Surgeon: Magdiel Gibson Procedure Performed: Transesophageal echocardiogram. Indication For Procedure: Status post Watchman. Complications: None. Estimated Blood Loss: None. Sedation Time: 15 minutes, done by Anesthesia team. Description Of Procedure: After risks, benefits, and alternatives were explained to the patient, the patient agreed to proceed with the procedure and signed informed consent. [facility] to the OR. Time-out was performed. Sedation was administered by Anesthesia team. MAYTE probe ins erted, images obtained, and then MAYTE probe out. No complications. The patient was moved back to [facility] in stable condition. Assessment And Plan: Status post Watchman placement with no thrombus, no leak. The plan will be to discontinue Eliquis and continue Plavix for 3 months. Follow up in clinic as scheduled. ELOY Voice ID: [id number] Report ID: [id number]
== END 2023-11-13 12:37 | disposition home or self-care (01) ==
LOC: CCL 10:22
PROVIDERS: ATTEND Internal Medicine
DX: I48.11 Longstanding persistent atrial fibrillation (principal); Z98.890 Other specified postprocedural states; I25.10 Atherosclerotic heart disease of native coronary artery without angina pectoris; I13.0 Hypertensive heart and chronic kidney disease with heart failure and stage 1 through stage 4 chronic kidney disease, or unspecified chronic kidney disease; I50.22 Chronic systolic (congestive) heart failure; N18.30 Chronic kidney disease, stage 3 unspecified; I47.20 Ventricular tachycardia, unspecified; I34.0 Nonrheumatic mitral (valve) insufficiency; E78.2 Mixed hyperlipidemia; Z95.810 Presence of automatic (implantable) cardiac defibrillator; Z79.82 Long term (current) use of aspirin; Z79.899 Other long term (current) drug therapy
CPT/HCPCS: 93312; J2704; J2001; J7040

== ENCOUNTER 2024-05-07 10:48 | Observation (INO) | payer OTHER, MEDICARE ==
--- OUTSIDE RECORDS SUMMARY | 2024-05-07 10:51 | XMS REPORT | Continuity of Care Document ---
Author Name Unknown Address [address] [facility] [address] [place] [address] [facility] Address [address] [facility] [address] [place] [address] Care Team Providers Care Matrix Inspector Name Role Phone Zachary Reeves Attending Clinician Unavailable Prasanth Sheriff Attending Clinician Unavailable Zachary Reeves Admitting Clinician Unavailable Physician, No Primary or Family Admitting Clinic ahsan Unavailable Payers Payer Name Policy Type Policy Number Effective Date Expirati on Date Source Allergies, Adverse Reactions, Alerts Allergy Name Allergy Type Status Severity Reaction(s) Onset Date Inactive Date Treating Clinician Comments Source No Known Allergie s DA Active U 2022-07 00:00: 00 [facility] Procedures Procedure Date / Time Performed Performing Clinicia n Source [id number] 2023-10-03 00:00:00 [facility] En[facility] Start Date/Time End Date/Time Encounter Type Admission Type Attending Clinicians Care Facility Care Department Encounter ID Source 2023-10-03 09:07:00 2023-10-03 13:30:00 Inpatient Zachary Fernandez [facility] INTE.02 [id number] [facility] 2023-07-04 05:25:00 2023-07-04 05:25:00 Outpatient Prasanth Wakefield [facility] OUTD [id number] [facility] Results Test Description Test Time Test Comments Results Result Co mments Source COAGULATION TIME [id number] 08:08:00* Test Item Value Reference Range Interpretation Comme nts COAGULATION TIME ACTIVATED (test code = ACT) 288 SECONDS Performed by certified tube laser operator at [facility] BASIC METABOLIC [id number] 10:46:00* Test Item Value Reference Range Interpretation Comme nts SODIUM (test code = NA) 139 mEq/L 134-147 N POTASSIUM (test code = K) 4.3 mEq/L 3.4-5.0 N CHLORIDE (test code = CL) 106 mEq/L 100-108 N CARBON DIOXIDE (test code = CO2) 26 mEq/l 21-33 N ANION GAP (test code = GAP) 11 0-20 N GLUCOSE (test code = GLU) 106 mg/dL 77-141 N BLOOD UREA NITROGEN (test code = BUN) 20 mg/dL 7-25 N GLOMERULAR FILTRATION RATE (test code = GFR) 37.7 80-90 L The Glomerular Filtration Rate is [...] <18 years. CREATININE (test code = CREAT) 1.9 mg/dL 0.6-1.3 H CALCIUM (test code = CA) 9.3 mg/dL 8.0-10.5 N [id number] 10:46:00* Test Item Value Reference Range Interpretation Comme nts PREALBUMIN (test code = PREALB) 22.8 mg/dL 16.0-40.0 N PROTHROMBIN [id number] 10:27:00* Test Item Value Reference Range Interpretation Comme nts PROTHROMBIN TIME PATIENT (test code = PTP) 13.3 SECONDS 9.3-12.9 H INTERNATIONAL NORMAL RATIO (test code = INR) 1.2 0.8-1.2 N TARGET INR BY INDICATION Indication [...] Infarction (to prevent recurrent infarct). CBC W/AUTO [id number] 10:16:00* Test Item Value Reference Range Interpretation Comme nts WHITE BLOOD CELL (test code = WBC) 7.3 x10 3/uL 4.5-11.0 N RED BLOOD CELL (test code = RBC) 4.86 x10 6/uL 4.00-5.60 N HEMOGLOBIN (test code = HGB) 16.0 g/dL 12.5-16.9 N HEMATOCRIT (test code = HCT) 47.1 % 37.5-50.7 N MEAN CELL VOLUME (test code = MCV) 96.9 fL 81.0-99.0 N MEAN CELL HGB (test code = MCH) 32.9 pg 27.0-33.0 N MEAN CELL HGB CONCETRATION (test code = MCHC) 34.0 g/dL 33.0-37.0 N RED CELL DISTRIBUTION WIDTH CV (test code = RDW) 13.4 % 11.5-14.5 N RED CELL DISTRIBUTION WIDTH SD (test code = RDW-SD) 48.3 fL 37.0-54.0 N PLATELET COUNT (test code = PLT) 184 x10 3/uL 150-400 N MEAN PLATELET VOLUME (test c ode = MPV) 9.6 fL 7.0-9.0 H NEUTROPHIL % (test code = NT%) 63.3 % 56.0-77.0 N IMMATURE GRANULOCYTE % (test code = IG%) 0.4 % 0.0-2.0 N LYMPHOCYTE % (test code = LY%) 16.9 % 14.0-32.0 N MONOCYTE % (test code = MO%) 12.4 % 4.8-9.0 H EOSINOPHIL % (test code = EO%) 6.2 % 0.3-3.7 H BASOPHIL % (test code = BA%) 0.8 % 0.0-2.0 N NUCLEATED RBC % (test code = NRBC%) 0.0 % 0-0 N NEUTROPHIL # (test code = NT#) 4.59 x10 3/uL 2.0-7.6 N IMMATURE GRANULOCYTE # (test code = IG#) 0.03 x10 3/uL 0.00-0.03 N LYMPHOCYTE # (test code = LY#) 1.23 x10 3/uL 1.0-3.8 N MONOCYTE # (test code = MO#) 0.90 x10 3/uL 0.1-0.8 H EOSINOPHIL # (test code = EO#) 0.45 x10 3/uL 0.0-0.2 H BASOPHIL # (test code = BA#) 0.06 x10 3/uL 0.0-0.2 N NUCLEATED RBC # (test code = NRBC#) 0.00 x10 3/uL 0.0-0.1 N [id number] 10:04:00* Test Item Value Reference Range Interpretation Comme nts ACT-ISTAT (test code = ACTI) 287 SEC 74-137 H Performed by cer tified tube laser operator at [facility] [id number] 09:29:00* Test Item Value Reference Range Interpretation Comme nts ACT-ISTAT (test code = ACTI) 277 SEC 74-137 H Performed by cer tifTrendPo tube laser operator at [facility] BASIC METABOLIC [id number] 12:48:00* Test Item Value Reference Range Interpretation [...] = CA) 8.6 mg/dL 8.0-10.5 N PROTHROMBIN [id number] 12:33:00* Test Item Value Reference Range Interpretation [...] Infarction (to prevent recurrent infarct). CBC W/AUTO [id number] 12:25:00* Test Item Value Reference Range Interpretation [...] 3/uL 0.0-0.1 N - XR CHEST 2 [id number] 12:25:00 [facility] 1955 Sex: M FAX: Prasanth Mixon MD [phone] [place]: St: PRE Name: HEIDI OTTO [facility] : 1955 Age/S: 67/M [address] [place] [address] Unit #: [id number] Loc: [place] [address] Phys: Prasanth Sheriff MD Acct: [id number] Dis Date: Status: PRE SDC PHONE #: [phone] Exam Date: 07/02/2023 1205 FAX #: [phone] Reason: PRE OP EXAMS: CPT CODE: [id number] XR CHEST 2 V 70705 EXAM: - XR CHEST 2 V HISTORY: [...] bryan D.O CC: Prasanth Sheriff MD Technologist: Willy Kelly RT(R) Trnscrd Date/Time/By: 07/02/2023 (6204) : By: DR.BAGAR Cardenas Print D/T: S: 07/02/2023 (2071) PAGE 1 Signed Report Notes Date/Time Note Provider Source 2023-10-03 12:44:00 [id number] [place] [address] PATIENT NAME: HEIDI OTTO ADMIT DATE: 10/03/23 ACCOUNT NO: [id number] ROOM NO: KELLIE AGE: 67 REPORT TYPE: eECHOCARDIOGRAM REPORT SEX: M ADMITTING PHYSICIAN:Zachary Reeves MD ATTENDING PHYSICIAN:Zachary Reeves MD *[place] [address] Limited Transthoracic Echocardiogram Patient: Heidi Otto Study Date: 10/03/2023 BP: 122 / 63 URN: [id number] Location: : 1955 Age: 67 Gender: M Height: 62 in / 157.5 cm Weight: 177 lb / 80.3 kg BMI/BSA: 32.4 kg/m 2 / 1.91 m 2 *Ordering Physician: * Eugenio Montgomery *Interpreting Physician: * Mohamud Mack MD *Customer Expert: * Sue Pan Indications: R/O PERICARDIAL EFFUSION. Study data: Transthoracic echocardiogram, limited study. Procedure: A transthoracic echocardiogram was performed. Image quality was fair. The study was technically limited due to poor patient compliance and restricted patient mobility. Limited 2D and limited spectral Doppler. Location: Bedside. Patient status: Inpatient. Patient room number: CCL 23. Study status: Stat. Heart rate: 52 bpm. Findings Left ventricle: The cavity size is normal. Wall thickness is normal. Systolic function is reduced. The estimated ejection fraction is 35-39%. There is mild diffuse hypokinesis. Cannot assess LV diastolic function. PATIENT NAME: HEIDI OTTO Right ventricle: Pacer wire noted in the right ventricle. Mitral valve: There is moderate regurgitation. Tricuspid valve: There is mild regurgitation. Pericardium: There is no pericardial effusion. No evidence of pleural fluid accumulation. Measurements Left ventricle Value Ref CIRILO, LAX 5.7 cm 4.2 - 5.8 ESD, LAX 4.6 cm 2.5 - 4.0 FS, LAX 19 % 25 - 43 IVS, ED 1.1 cm 0.6 - 1.0 PW, ED 1.3 cm 0.6 - 1.0 IVS/PW, ED 0.9 --------- EF 39 % 52 - 72 Right ventricle Value Ref CIRILO, LAX 3.6 cm --------- Pressure, S 34 mm Hg --------- Mitral valve Value Ref MR peak v 4.93 m/sec --------- ERO, PISA 0.29 cm 2 --------- MR vol, PISA 60 ml --------- Tricuspid valve Value Ref TR peak v 2.5 m/sec <=2.8 Peak RV-RA grad, S 24 mm Hg --------- Pulmonary artery Value Ref Pressure, S 34.3 mm Hg --------- Systemic veins Value Ref Estimated CVP 10 mm Hg --------- Conclusions Summary: 1. Left ventricle: The cavity size is normal. Wall thickness is normal. Systolic function is reduced. The estimated ejection fraction is 35-39%. There is mild diffuse hypokinesis. Cannot assess LV diastolic function. 2. Mitral valve: There is moderate regurgitation. 3. Tricuspid valve: There is mild regurgitation. 4. Pericardium, extracardiac: There is no pericardial effusion. No evidence of pleural fluid accumulation. Electronically signed by PATIENT NAME: HEIDI OTTO Mohamud Mack MD 10/03/2023 12:44 at 1244 PATIENT NAME: HEIDI OTTO [facility] 2023-10-03 09:00:00 [facility] ([facility]) Discharge Summary REPORT#:[id number] REPORT STATUS: Signed REPORT INITIALIZATION DATE:10/03/23 TIME: 09 PATIENT: HEIDI OTTO UNIT #: [id number] ROOM/BED: [place] [id number] : [birth year] AGE: 68 SEX: M ATTEND: Zachary Reeves MD ADM AUTHOR: Eugenio Montgomery REPT SERVICE DT/TIME: 10/03/23 0900 * ALL edits or amendments must be made on the electronic/computer document * PCP PCP Discharge to: home General Information Discharge date: 10/03/23 Discharge diagnosis: AFIB Hospital course: Patient with unspecified atrial fibrillation, CHADSVASC score of 3, and intolerance to long-term anticoagulation due to risk of bleeding and need for dual antiplatelet therapy. Patient is s/p successful implantation of a 27mm Watchman device in the left atrial appendage. Patient tolerated the procedure without post-op complications. No thrombus was identified in the pre-/intra-op MAYTE. Postoperatively, chest x-ray is negative for any acute process. Post-op echo did not show a pericardial effusion. Patient ambulated without any difficulty, and heart rate and blood pressure are stable. Right groin suture removed and Dermabond applied. No infection, bleeding, or hematoma. Patient was provided with post-Watchman discharge instructions. Patient is to follow up with PCP and youth accommodation support worker in 1 to 2 weeks post discharge. Patient is to follow up with youth accommodation support worker for the 45-day MAYTE, and for anticoagulation recommendation. Patient is to continue Eliquis for 6 weeks, then transition to aspirin and Plavix. Duration of aspirin is lifelong. Duration of Plavix is 6 months post 45-day MAYTE. Post-Watchman discharge instructions given to the patient who verbalized understanding, and patient was instructed to report any complaints of chest pain , shortness of breath, lightheadedness, or dizziness to the youth accommodation support worker. Dispo: It is medically necessary that patients undergoing percutaneous left atrial appendage occlusion are admitted as an inpatient. This patient had a recovery that was earlier than expected and can be discharged today. Med Rec PCP PCP: PCP: No Primary or Family Physician Med Rec Discharge meds: Continue taking these medications: Sacubitril/Valsartan (Entresto 97 MG-103 MG Tablet) 97 MG-103 MG TAB 1 EACH ORAL TWICE DAILY. CARVEDILOL (COREG) 25 MG TAB 25 MILLIGRAM ORAL DAILY-AM CARVEDILOL (COREG) 12.5 MG TAB 12.5 MILLIGRAM ORAL BEDTIME. EPLERENONE (INSPRA) 25 MG TAB 25 MILLIGRAM ORAL BEDTIME. ALLOPURINOL (ZYLOPRIM) 100 MG TAB 100 MILLIGRAM ORAL BEDTIME. APIXABAN (ELIQUIS) 2.5 MG TAB 2.5 MILLIGRAM ORAL TWICE DAILY. AMIODARONE (PACERONE) 200 MG TAB 200 MILLIGRAM ORAL DAILY. ATORVASTATIN (LIPITOR) 40 MG TAB 40 MILLIGRAM ORAL BEDTIME. CLOPIDOGREL (PLAVIX) 75 MG TAB 75 MILLIGRAM ORAL DAILY. ASPIRIN EC (ECOTRIN) 81 MG TAB.EC 81 MILLIGRAM ORAL DAILY. Objective VS/I O Last Documented: Result Date Time O2 Delivery Simple mask 10/02 857 O2 Flow Rate 6 10/02 857 B/P 178/102 10/01 940 Temp 36.5 10/01 940 Pulse 60 10/01 940 Resp 18 10/01 940 24 hour I O ending at 0700: 10/02 0700 10/01 1900 Intake Total Output Total Balance Patient 80.7 kg Weight Weight Standing scale Measurement Method PATIENT WEIGHT: Weight (lb): 177 Weight (oz): 14.61 Weight (kg): 80.700 General appearance: alert, awake, oriented Cardiovascular: regular rate rhythm Respiratory: clear to auscultation, no distress GI: soft, non-tender Extremities: moves all Neuro/MANAGER STRATEGIC DEVELOPMENT: alert, oriented X 3 Skin: dry Wound/incision: Location: Right groin suture removed and Dermabond applied. No infection, bleeding, or hematoma. Results Findings/Data: Laboratory Tests: 10/02 0941 Chemistry Sodium (134 - 147 mEq/L) 139 Potassium (3.4 - 5.0 mEq/L) 4.3 Chloride (100 - 108 mEq/L) 106 Carbon Dioxide (21 - 33 mEq/l) 26 Anion Gap (0 - 20) 11 BUN (7 - 25 mg/dL) 20 Creatinine (0.6 - 1.3 mg/dL) 1.9 H Glomerular Filtr Rate (80 - 90) 37.7 L Glucose (77 - 141 mg/dL) 106 Calcium (8.0 - 10.5 mg/dL) 9.3 Prealbumin (16.0 - 40.0 mg/dL) 22.8 Coagulation INR (0.8 - 1.2) 1.2 PT Patient/Control Mix (9.3 - 12.9 SECONDS) 13.3 H Activated Coag Time (SECONDS) 288 Hematology WBC (4.5 - 11.0 x10 3/uL) 7.3 RBC (4.00 - 5.60 x10 6/uL) 4.86 Hgb (12.5 - 16.9 g/dL) 16.0 Hct (37.5 - 50.7 %) 47.1 MCV (81.0 - 99.0 fL) 96.9 MCH (27.0 - 33.0 pg) 32.9 MCHC (33.0 - 37.0 g/dL) 34.0 RDW (11.5 - 14.5 %) 13.4 Plt Count (150 - 400 x10 3/uL) 184 MPV (7.0 - 9.0 fL) 9.6 H Neut % (Auto) (56.0 - 77.0 %) 63.3 Lymph % (Auto) (14.0 - 32.0 %) 16.9 [place] % (Auto) (4.8 - 9.0 %) 12.4 H Eos % (Auto) (0.3 - 3.7 %) 6.2 H Baso % (Auto) (0.0 - 2.0 %) 0.8 Neut # (Auto) (2.0 - 7.6 x10 3/uL) 4.59 Lymph # (Auto) (1.0 - 3.8 x10 3/uL) 1.23 [place] # (Auto) (0.1 - 0.8 x10 3/uL) 0.90 H Eos # (Auto) (0.0 - 0.2 x10 3/uL) 0.45 H Baso # (Auto) (0.0 - 0.2 x10 3/uL) 0.06 Abs Immat Gran (auto) (0.00 - 0.03 x10 3/uL) 0.03 Immature Gran % (0.0 - 2.0 %) 0.4 Nucleated RBC % (0 - 0 %) 0.0 Nucleated RBCs # (Man) (0.0 - 0.1 x10 3/uL) 0.00 Radiology data: Recent Impressions: RADIOLOGY - XR CHEST 2 V 10/01 1054 Report Impression - Status: SIGNED Entered: 10/02/2023 1105 IMPRESSION: No radiographic evidence of acute cardiopulmonary findings. Enlarged cardiomediastinal silhouette and mild pulmonary vascular congestion. Prominent main pulmonary artery, which may be seen in the setting of pulmonary arterial hypertension. Impression By: EstebanASGlory Alcaraz M.D. Treatments Procedures Treatments Procedures: Successful left atrial appendage closure using 27 mm Watchman FLX Lab: Chemistry last 24 hrs: 10/01 0941 Chemistry Sodium (134 - 147 mEq/L) 139 Potassium (3.4 - 5.0 mEq/L) 4.3 Chloride (100 - 108 mEq/L) 106 BUN (7 - 25 mg/dL) 20 Creatinine (0.6 - 1.3 mg/dL) 1.9 H Glucose (77 - 141 mg/dL) 106 Hematology last 24 hrs: 10/01 0941 Hematology WBC (4.5 - 11.0 x10 3/uL) 7.3 Hgb (12.5 - 16.9 g/dL) 16.0 Hct (37.5 - 50.7 %) 47.1 Plt Count (150 - 400 x10 3/uL) 184 Neut % (Auto) (56.0 - 77.0 %) 63.3 Coagulation last 24 hrs: 10/01 940 Coagulation INR (0.8 - 1.2) 1.2 Imaging: Recent Impressions: RADIOLOGY - XR CHEST 2 V 10/01 1054 Report Impression - Status: SIGNED Entered: 10/02/2023 1105 IMPRESSION: No radiographic evidence of acute cardiopulmonary findings. Enlarged cardiomediastinal silhouette and mild pulmonary vascular congestion. Prominent main pulmonary artery, which may be seen in the setting of pulmonary arterial hypertension. Impression By: Judy Alcaraz M.D. Discharge Instructions PCP PCP: PCP: No Primary or Family Physician )( Discharge to: Home/Self Care Discharge Instructions Additional Discharge Routines: Attending Follow-Up )( Diet: Cardiac )( Activity: As Tolerated Follow-up Appointments Attending Physician: Attending Physician: Zachary Reeves MD Attending physician follow up timeframe: In 1-2 weeks at 1351 at 0781 RPT #:[id number] END OF REPORT [facility] 2023-10-03 08:43:00 [id number] [address] PATIENT NAME: HEIDI OTTO ADMIT DATE: 10/03/23 ACCOUNT NO: [id number] ROOM NO: KELLIE AGE: 67 REPORT TYPE: eELECTROCARDIOGRAM REPORT SEX: M ADMITTING PHYSICIAN:Zachary Reeves MD ATTENDING PHYSICIAN:Zachary Reeves MD Order: [id number] Test Reason : S/P WATCHMAN Test Date/Time Stamp: SunOct 03 2023 08:43:54 Blood Pressure : / mmHG Vent. Rate : 055 BPM Atrial Rate : 055 BPM P-R Int : 288 ms QRS Dur : 190 ms QT Int : 526 ms P-R-T Axes : 068 -09 252 degrees QTc Int : 503 ms Sinus bradycardia with 1st degree AV block Nonspecific intraventricular block Abnormal ECG When compared with ECG of 02-OCT-2023 10:01, Significant changes have occurred Confirmed by YEYO MARTINEZ MD ([id number]) on 10/05/2023 1:53:31 PM Referred By: Zachary Reeves Confirmed by:WILBUR MARTINEZ MD at 1353 PATIENT NAME: HEIDI OTTO [facility] 2023-10-03 08:20:00 [id number] [place] [address] PATIENT NAME: HEIDI OTTO ADMIT DATE: 10/03/23 ACCOUNT NO: [id number] ROOM NO: KELLIE AGE: 67 REPORT TYPE: CARDIAC CATHETERIZATION REPORT SEX: M ADMITTING PHYSICIAN:Zachary Reeves MD ATTENDING PHYSICIAN:Zachary Reeves MD PROCEDURE DATE: 10/03/2023 PROCEDURE PERFORMED: Left atrial appendage closure using a 27 mm Watchman FLX closure device. INDICATION: Atrial fibrillation with high CHADS-VASc score and risk of stroke and intolerant of anticoagulant. ACCESS: Right femoral vein, 16-Indian, closed with a gzlquy-nq-qxshs suture. COMPLICATIONS: None BLEEDING: Less than 50 mL. DESCRIPTION OF PROCEDURE: After risks, benefits and alternatives were explained, the patient agreed to proceed and signed informed consent, the patient was brought to the cardiac catheterization laboratory. General anesthesia was applied and the MAYTE probe was inserted, preprocedure MAYTE was reviewed. The appendage appeared to be suitable for closure. I accessed right femoral vein using micropuncture kit and ultrasound guidance and placed an 8-Indian [place] sheath. Subsequently, upgraded to the 16-Indian [place] sheath, gave a partial dose of heparin, took SL1 sheath into the SVC and with the [place] needle inside, descended into interatrial septum in the mid-mid position. Transseptal puncture was performed and LA pressure was measured at 24 mmHg. Full dose heparin at this moment was given to assure ACT level above 250 throughout the procedure. Then, I sent ProTrack wire into the left atrium, exchanged for the Watchman double curve sheath and then took the pigtail catheter through the Watchman sheath into the left atrium, navigated into the appendage and telescoped the Watchman sheath over it into the appendage. Appendage angiogram was performed and determined a 27 mm device will be suitable for closure. Device was prepped and de-aired in the usual sterile fashion, then pigtail was removed and advanced the delivery system through the Watchman sheath and then under MAYTE and fluoroscopy guidance, Watchman was deployed successfully. Then, PASS criteria were evaluated and met. Device was released and then removed the Watchman sheath and delivery system and the Cook sheath out and placed [id number]-[id number]-[id number] suture for closure with good hemostasis. The patient was sent to recovery in stable condition. CONCLUSION: Successful left atrial appendage closure using 27 mm Watchman FLX closure device. Dictated By: Zachary Reeves MD PATIENT NAME: MIKI OTTOWIN Date Dictated: 10/03/2023 08:20:51 Date Transcribed: 10/03/2023 09:23:52 /IVANNA Receipt ID: [id number] Authenticated by Zachary Reeves MD On 10/09/2023 08:09:45 AM at 0809 PATIENT NAME: CLARITAHEIDI [facility] 2023-10-02 17:35:00 [facility] ([facility]) Consultation Note - Brief REPORT#:[id number] REPORT STATUS: Signed REPORT INITIALIZATION DATE:10/02/23 TIME: 1734 PATIENT: HEIDI OTTO UNIT #: [id number] ROOM/BED: : 53 AGE: 67 SEX: M ATTEND: Zachary Reeves MD ADM AUTHOR: Raul Bella MD REPT SERVICE DT/TIME: 10/02/23 4960 * ALL edits or amendments must be made on the electronic/computer document * History of Present Illness HPI Requesting Clinician: Dr. Reeves Reason for consult: Watchman shared decision Chief complaint: Patient here today for preop testing and watchman shared decision for elective watchman insertion tomorrow. PCP: PCP: No Primary or Family Physician History of present illness: Very pleasant 67-year-old man with past medical history of chronic atrial fibrillation ischemic cardiomyopathy, CAD status post CABG x 4 and PCI in July of this year and CKD stage III. Scheduled to have elective watchman insertion tomorrow. Hx Obtained From Patient History - Adult longitudinal Past medical history: Reports: Atrial fibrillation, Congestive heart failure, Coronary artery disease, Kidney disease/stones (Chronic kidney disease 3). Additional medical history: Ischemic cardiomyopathy Past surgical history: Reports: CABG (x 4), Eye surgery (Cataract surgery), ICD. Additional surgical history: Cardiac ablation for A-fib in June 2023 Cardiac stents Alcohol use: Denies EtOH use Drug use: Denies recreational drugs Smoking status for patients 13 years old or older: Never Smoker Medications: Home Medications: Medication Dose/Rte/Freq Days Qty Entered Last Max Daily Dose Reviewed Sacubitril/Valsartan 1 EACH PO BID 07/02/23 (Entresto 97 MG-103 MG 1201 Tablet) Strength: 97 MG-103 MG TAB CARVEDILOL (COREG) 25 MG PO DAILY-AM 07/02/23 Strength: 25 MG TAB 1201 CARVEDILOL (COREG) 12.5 MG PO BEDTIME 07/02/23 Strength: 12.5 MG TAB 1202 EPLERENONE (INSPRA) 25 MG PO BEDTIME 07/02/23 Strength: 25 MG TAB 1205 ALLOPURINOL (ZYLOPRIM) 100 MG PO BEDTIME 07/02/23 Strength: 100 MG TAB 1205 APIXABAN (ELIQUIS) 2.5 MG PO BID 10/02/23 Strength: 2.5 MG TAB 0956 AMIODARONE (PACERONE) 200 MG PO DAILY 10/02/23 Strength: 200 MG TAB 0957 ATORVASTATIN (LIPITOR) 40 MG PO BEDTIME 10/02/23 Strength: 40 MG TAB 0957 CLOPIDOGREL (PLAVIX) 75 MG PO DAILY 10/02/23 Strength: 75 MG TAB 0958 ASPIRIN EC (ECOTRIN) 81 MG PO DAILY 10/02/23 Strength: 81 MG TAB.EC 0959 Allergies: Coded Allergies: No Known Allergies (07/02/23) Pt reports no significant: family history Ambulatory status: Independent Brief Consult Note Physical Exam Vitals: Blood pressure 178/102, pulse of 60, respiratory rate 18, temperature 97.7 General appearance: alert, awake, oriented HEENT: mucosal membranes moist, sclera clear Neck: full range of motion, no bruit/NL carotids, no JVD Cardiovascular: regular rate rhythm, normal heart sounds Respiratory: clear to auscultation, no distress, no tenderness, aerating well, symmetric expansion Abdomen: soft, non-tender, no guarding, no rebound, no distention Neuro/MANAGER STRATEGIC DEVELOPMENT: alert, oriented X 3, normal speech, no motor deficits, no sensory deficits Extremities: Bilat moves all, Bilat no edema Skin: dry, intact, ecchymosis Findings/Data: Recent Impressions: RADIOLOGY - XR CHEST 2 V 10/01 1054 Report Impression - Status: SIGNED Entered: 10/02/2023 1105 IMPRESSION: No radiographic evidence of acute cardiopulmonary findings. Enlarged cardiomediastinal silhouette and mild pulmonary vascular congestion. Prominent main pulmonary artery, which may be seen in the setting of pulmonary arterial hypertension. Impression By: EstebanASGlory Alcaraz M.D. Laboratory Tests 10/02/23 0941: [Embedded Image Not Available] Free Text A P: Patient meets criteria for watchman insertion [id number] VASc score is 3 Has bled score is 3 Patient did the NICE questionnaire All pertinent forms were signed. at 1747 RPT #:[id number] END OF REPORT [facility] 2023-10-02 10:01:00 [id number] [address] PATIENT NAME: HEIDI OTTO ADMIT DATE: ACCOUNT NO: [id number] ROOM NO: AGE: 67 REPORT TYPE: eELECTROCARDIOGRAM REPORT SEX: M ADMITTING PHYSICIAN: ATTENDING PHYSICIAN:Zachary Reeves MD Order: [id number] Test Reason : PREOP Test Date/Time Stamp: SunOct 02 2023 10:01:50 Blood Pressure : / mmHG Vent. Rate : 059 BPM Atrial Rate : 059 BPM P-R Int : 238 ms QRS Dur : 188 ms QT Int : 492 ms P-R-T Axes : -05 130 -43 degrees QTc Int : 487 ms Sinus bradycardia with 1st degree AV block Nonspecific intraventricular block Abnormal ECG When compared with ECG of 04-JUL-2023 10:44, Significant changes have occurred Confirmed by YEYO MARTINEZ MD ([id number]) on 10/02/2023 2:27:55 PM Referred By: Zachary Reeves Confirmed by:WILBUR MARTINEZ MD at 1427 PATIENT NAME: HEIDI OTTO [facility] 2023-07-04 10:44:00 [id number] [place] [address] PATIENT NAME: HEIDI OTTO ADMIT DATE: 07/04/23 ACCOUNT NO: [id number] ROOM NO: AGE: 67 REPORT TYPE: eELECTROCARDIOGRAM REPORT SEX: M ADMITTING PHYSICIAN: ATTENDING PHYSICIAN:Prasanth Sheriff MD Order: [id number] Test Reason : ABLATION Test Date/Time Stamp: SunJul 04 2023 10:44:11 Blood Pressure : / mmHG Vent. Rate : 067 BPM Atrial Rate : 067 BPM P-R Int : 000 ms QRS Dur : 186 ms QT Int : 482 ms P-R-T Axes : 000 -50 008 degrees QTc Int : 509 ms Sinus rhythm Left axis deviation Nonspecific intraventricular block Abnormal ECG When compared with ECG of 02-JUL-2023 11:28, No significant change was found Confirmed by KAITLIN HERNANDEZ MD ([id number]) on 07/04/2023 4:54:56 PM Referred By: Prasanth Sheriff Confirmed by:KAITLIN HERNANDEZ MD at 1654 PATIENT NAME: HEIDI OTTO [facility] 2023-07-04 10:20:00 [id number] [address] PATIENT NAME: HEIDI OTTO ADMIT DATE: 07/04/23 ACCOUNT NO: [id number] ROOM NO: AGE: 67 REPORT TYPE: CARDIAC CATHETERIZATION REPORT SEX: M ADMITTING PHYSICIAN: ATTENDING PHYSICIAN:Prasanth Sheriff MD PROCEDURE DATE: 07/04/2023 PREOPERATIVE DIAGNOSIS: Paroxysmal atrial fibrillation. POSTOPERATIVE DIAGNOSIS: Paroxysmal atrial fibrillation. PROCEDURE PERFORMED: 1. Catheter ablation with pulmonary vein electrical isolation 2. Catheter ablation of nonpulmonary vein triggers on the posterior wall. 3. IV adenosine infusion. 4. Intracardiac ultrasound. 5. 3D anatomical mapping. PAYROLL CONSULTANT: Prasanth Sheriff MD. REFERRING PHYSICIAN: Dr. Taran Rowe. DESCRIPTION OF PROCEDURE AND FINDINGS: After informed consent was obtained, the patient was brought to the public works laborer where he was placed under general anesthesia. Right and left groins were prepped and draped in the usual sterile fashion. Three sheaths were placed in the right femoral vein using micropuncture needle and ultrasound guidance. Intracardiac ultrasound catheter was positioned in the right atrium and imaging of the left atrium, pulmonary veins and the interatrial septum was performed. A 10-pole catheter was advanced into the coronary sinus. Baseline rhythm was normal sinus rhythm with atrial pacing and intrinsic AV mihai conduction. Using a [place] needle and a deflectable sheath, single transseptal puncture of the interatrial septum was performed and access to the left atrium was achieved. Using a multipolar mapping catheter with a map of the left atrium and the pulmonary veins was constructed. There was voltage present in the left-sided pulmonary veins and in the right-sided pulmonary veins, there was some voltage [...] then confirmed entrance and exit block by pacing in the veins. Finally, we turned our attention to the posterior wall and more lesions were delivered just posterior to the left inferior pulmonary vein and right inferior pulmonary vein in the areas of low voltage scar. No linear ablation lines were performed on the posterior wall. Finally, at the end of the case, all the catheters and sheaths were withdrawn and hemostasis was achieved with a ProGlide closure device. PATIENT NAME: HEIDI OTTO Dictated By: Prasanth Sheriff MD Date Dictated: 07/04/2023 10:20:09 Date Transcribed: 07/04/2023 10:35:44 MS/IVANNA Receipt ID: [id number] Authenticated by Prasanth Sheriff MD On 07/06/2023 02:25:15 PM at 0225 PATIENT NAME: HEIDI OTTO [facility] 2023-07-02 11:28:00 [id number] [place] [address] PATIENT NAME: HEIDI OTTO ADMIT DATE: ACCOUNT NO: [id number] ROOM NO: AGE: 67 REPORT TYPE: eELECTROCARDIOGRAM REPORT SEX: M ADMITTING PHYSICIAN: ATTENDING PHYSICIAN:Prasanth Sheriff MD Order: [id number] Test Reason : PREOP Test Date/Time Stamp: SunJul 02 2023 11:28:17 Blood Pressure : / mmHG Vent. Rate : 057 BPM Atrial Rate : 056 BPM P-R Int : 000 ms QRS Dur : 186 ms QT Int : 482 ms P-R-T Axes : 000 135 -31 degrees QTc Int : 469 ms Wide QRS rhythm Nonspecific intraventricular block Abnormal ECG No previous ECGs available Confirmed by KAITLIN HERNANDEZ MD ([id number]) on 07/02/2023 4:41:09 PM Referred By: Prasanth Sheriff Confirmed by:KAITLIN HERNANDEZ MD at 1648 PATIENT NAME: HEIDI OTTO [facility]
[2024-05-07] MEDS ORDERED: NA CHLORIDE 0.9% 1,000 ML ONE (11:45)
--- NOTE | 2024-05-07 11:52 | RAD REPORT ---
EXAM: US duplex Carotid Artery Bilateral CLINICAL INDICATION: DIZZINESS TECHNIQUE: Real-time grayscale, color flow, and spectral Doppler sonographic images were obtained of the extracranial carotid system using a linear transducer. Arterial peak systolic velocities are recorded as follows. COMPARISON: 08/14/2023 FINDINGS: RIGHT: Common carotid artery: 53 cm/s Internal carotid artery: 65 cm/s Right ICA/CCA ratio: 1.2 Plaque: Moderate Calcified irregular plaque External carotid artery: Elevated,300 cm/s Vertebral artery: Antegrade LEFT: Common carotid artery: 69 cm/s Internal carotid artery: 92 cm/s Left ICA/CCA ratio: 1.3 Plaque: Moderate Calcified irregular plaque External carotid artery: 133 cm/s Vertebral artery: Antegrade IMPRESSION: No hemodynamically significant stenosis (greater than 50%) within the extracranial internal carotid a rteries. Moderate calcified plaque in the bulbs again seen. The degrees of stenosis, if any, are quantified according to the consensus statement of the Society o f Radiologists in Ultrasound (SRUS). Please refer to Tom E, Kalpesh C, Christian G et al. Carotid Artery Stenosis: Buck-Scale and Doppler US Diagnosis--Society of Radiologists in Ultrasound Consensus Conference. Radiology. 2003;229(2):340-6. doi:10.1148/radiol.[id number]
--- NOTE | 2024-05-07 12:05 | RAD REPORT ---
EXAM: Head Brain Wo Cont HISTORY: DIZZINESS COMPARISON: 08/14/2023 TECHNIQUE: Multiple contiguous axial images were obtained for a CT of the brain without contrast. Sag ittal and coronal reformats were performed. One or more of the following dose reduction techniques were used: Automated exposure control, adjus tment of the mA and kV according to patient size, and iterative reconstruction. Unless otherwise specified, incidental findings do not require dedicated imaging follow-up. FINDINGS: No evidence of hydrocephalus, intracranial hemorrhage, or extra-axial fluid collection. The brain is normal in morphology. The calvarium is intact. The visualized paranasal sinuses and mastoid air cells are essentially clear . IMPRESSION: No evidence of acute intracranial abnormality.
--- NOTE | 2024-05-07 13:00 | RAD REPORT ---
Procedure: Chest Single View HISTORY: Cough COMPARISON: October 2023 FINDINGS: The lungs appear clear of acute infiltrate. No significant pleural effusion noted. The heart is mildly to moderately enlarged. Post surgical changes involving the chest. Pacemaker leads in place.. IMPRESSION: No acute abnormality is displayed.
[2024-05-07 13:19] LABS: Absolute Basophils 0.1 K/uL (0-0.5); Absolute Eosinophils 0.4 K/uL (0-0.5); Absolute Lymphocytes (CBC) 1.2 K/uL (0.7-4.9); Absolute Monocytes 1.1 K/uL (0.1-1.3); Absolute Neutrophil 8.7 K/uL (1.8-8.0); Basophils % 0.6 % (0-1.3); Eosinophils % 3.3 % (0-4.4); Hemoglobin 15.3 g/dL (13.6-17.9); Lymphocytes % 10.6 % (15.3-44.8); MCHC 34.1 g/dL (32.0-36.0); MCV 99.8 fL (80-100); MPV 7.4 fL (7.6-11.3); Monocytes % 9.5 % (3.3-12.3); Platelets 217 thou/uL (152-406); RBC Red Blood Cell Count 4.51 M/uL (4.33-5.43)
[2024-05-07 13:24] LABS: PT Prothrombin Time 12.7 SECONDS (9.4-12.5); Protime INR 1.14
[2024-05-07 13:59] LABS: Albumin 3.6 g/dL (3.4-5.0); Albumin/Globulin Ratio 0.9 (1.1-1.8); Anion Gap 9.9 mEq/L (5.0-15.0); Bilirubin Direct 0.3 mg/dL (0-0.2); Bilirubin Indirect, Calculated 0.7 mg/dL (0.2-0.8); Globulin 3.8 g/dL (2.3-3.5); Protein, Total 7.4 g/dL (6.4-8.2); Troponin High Sensitivity 15.4 pg/mL (<58.9)
[2024-05-07 14:00] LABS: Magnesium 2.3 mg/dL (1.6-2.4); Potassium 4.9 mEq/L (3.5-5.1)
[2024-05-07 14:18] LABS: Specific Gravity 1.009 (1.005-1.030); Urine Bilirubin NEGATIVE (Negative); Urine Blood Negative (Negative); Urine Clarity Clear (Clear); Urine Color Light-Yellow (Yellow); Urine Glucose NEGATIVE (Negative); Urine Ketones NEGATIVE (Negative); Urine Microscopic Reflex YN NO UMIC; Urine Nitrite NEGATIVE (Negative); Urine Protein NEGATIVE (Negative); Urine Urobilinogen Normal (Normal)
--- NOTE | 2024-05-07 16:53 | ER ---
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 bp Coronavirus screen: At this time, the client does not indicate any symptoms associated with coronavirus-19. Ebola Screen: No symptoms or risks identified at this time. Initial Sepsis Screen: Does the patient meet any 2 criteria? No. Patient's initial sepsis screen is negative. Does the patient have a suspected source of infection? No. Patient's initial sepsis screen is negative. Risk Assessment: Do you want to hurt yourself or someone else? Patient reports no desire to harm self or others. Onset of symptoms is unknown. 10:52 Method Of Arrival: EMS: [facility] bp 10:52 Acuity: COOPER 3 bp Triage Assessment: 10:53 General: Appears in no apparent distress. Behavior is calm, cooperative, appropriate bp for age. Pain: Denies pain. EENT: No deficits noted. Neuro: No deficits noted. Cardiovascular: Rhythm is Respiratory: No deficits noted. GI: No signs and/or symptoms were reported involving the gastrointestinal system. : No signs and/or symptoms were reported regarding the genitourinary system. Derm: No deficits noted. Musculoskeletal: No deficits noted. Historical: - Allergies: 10:53 No Known Allergies; bp - Home Meds: 10:53 allopurinol 100 mg Oral tablet once [Active]; amiodarone 200 mg Oral tab 1 tab once bp daily [Active]; atorvastatin 40 mg Oral tablet once [Active]; aspirin 81 mg Oral capsule once [Active]; carvedilol 12.5 mg Oral tab 1 tab once [Active]; Plavix 75 mg Oral tablet once [Active]; Entresto 97-103 mg Oral tab 1 tab 2 times per day [Active]; eplerenone 25 mg Oral tab 1 tab once daily [Active]; - PMHx: 10:53 Atrial fibrillation; V-tach; Myocardial infarction; kidney problems; Hypertensive bp disorder; defibrillator / pacemaker; cardiac ablation (Unknown); diabetes mellitus; - PSHx: 10:53 CABG; Coronary artery bypass graft; ablation; Defibrillator/pacemaker; Heart ablation; bp heart stent; - Immunization history:: Adult Immunizations up to date. - Infectious Disease History:: Denies. - Social history:: Smoking status: Patient denies any tobacco usage or history of. - Family history:: not pertinent. Screenin:55 [facility] ED Fall Risk Assessment (Adult) History of falling in the last 3 months, bp including since admission No falls in past 3 months (0 pts) Confusion or Disorientation No (0 pts) Intoxicated or Sedated No (0 pts) Impaired Gait No (0 pts) Mobility Assist Device Used No (0 pt) Altered Elimination No (0 pt) Score/Fall Risk Level 0 - 2 = Low Risk. Abuse screen: Denies threats or abuse. Denies injuries from another. Nutritional screening: No deficits noted. Tuberculosis screening: No symptoms or risk factors identified. Assessment: 10:55 General: SEE TRIAGE NOTE. bp 12:25 Reassessment: PHLEBOTOMY CONTACTED FOR REDRAW. bp 14:22 Reassessment: Patient appears in no apparent distress at this time. Patient and/or hb family updated on plan of care and expected duration. Pain level reassessed. Patient is alert, oriented x 3, equal unlabored respirations, skin warm/dry/pink. 15:18 Reassessment: No changes from previously documented assessment. Patient and/or family hb updated on plan of care and expected duration. Pain level reassessed. Patient is alert, oriented x 3, equal unlabored respirations, skin warm/dry/pink. 16:31 Reassessment: Patient appears in no apparent distress at this time. Patient and/or hb family updated on plan of care and expected duration. Pain level reassessed. Patient is alert, oriented x 3, equal unlabored respirations, skin warm/dry/pink. 17:05 Reassessment: DC ON HOLD FOR RAD RESULTS. bp 18:41 Reassessment: REPORT FAXED TO 205. bp 19:05 Reassessment: Patient appears in no apparent distress at this time. Patient and/or kj2 family updated on plan of care and expected duration. Pain level reassessed. Patient is alert, oriented x 3, equal unlabored respirations, skin warm/dry/pink. Vital Signs: 10:52 BP 90 / 60; Pulse 67; Resp 16; Temp 98; Pulse Ox 100% ; bp 12:37 BP 107 / 79; Pulse 51; Resp 15; Pulse Ox 100% on R/A; hb 14:22 BP 135 / 73; Pulse 55; Resp 16; Pulse Ox 100% on R/A; hb 15:18 BP 127 / 75; Pulse 55; Resp 15; Pulse Ox 98% on R/A; hb 18:30 BP 133 / 85; Pulse 53; Resp 15; Temp 98; Pulse Ox 100% ; bp [place] Coma Score: 16:04 Eye Response: spontaneous(4). Motor Response: obeys commands(6). Verbal Response: makayla oriented(5). Total: 15. ED Course: 10:52 Patient arrived in ED. bp 10:53 Triage completed. bp 10:53 Arm band placed on. bp 10:55 Abdulkadir Valerio MD is Attending Physician. makayla 10:55 Patient has correct armband on for positive identification. bp 11:09 Roberto Sosa, RN is Primary Nurse. bp 11:09 Patient taken to ultrasound. via stretcher. hb 11:25 Radiology exam delayed due to pt not in room at this time. mh1 11:37 US Carotid Artery Bilateral In Process Unspecified. EDMS 11:40 CT Head Brain wo Cont In Process Unspecified. EDMS 12:09 Initial lab(s) drawn, by me, sent to lab. EKG done, by ED staff, reviewed by Abdulkadir Valerio MD. Inserted saline lock: 22 gauge in right forearm, using aseptic technique. Blood collected. Flushed with 10 mL NS. 12:50 XRAY Chest (1 view) In Process Unspecified. EDMS 16:50 CT Stone Protocol In Process Unspecified. EDMS 16:52 Reinaldo Reddy MD is Referral Physician. makayla 16:52 Elvis Dowell DO is Referral Physician. makayla 17:13 Reinaldo Reddy MD is Hospitalizing Provider. makayla 18:38 1838 CM met with at the bedside in the ED exam room. Patient identified by ane name and . Demographic sheet confirmed. Patient states he lives with his Arianne in a single story home. He reports that prior to admission, he performs ADLs independently. He uses a CPAP machine nightly and he states his is bringing it to the hospital. He reports his PCP is Dr. Reddy and his care provider is Dr. Reeves in [place], [place]. No other DME in the home , no HH, no other medical services at this time. NO MPOA in place. Patient's plan is to return home upon discharge and state his will transport him home. CM team will continue to follow and coordinate care during this hospital stay. 19:05 Report received from evens Mejia. kj2 20:10 No provider procedures requiring assistance completed. Patient admitted, IV remains in kj2 place. 20:11 Provided Education on: REASON TO ADMIT. kj2 Administered Medications: 12:09 Drug: NS 0.9% IV 1000 ml IV at 1000 ml once; to be given as a bolus over 60 minutes bp Route: IV; Rate: 1000 ml; Site: right forearm; 18:39 Follow up: IV Status: Completed infusion bp 17:30 Drug: Piperacillin-Tazobactam IVPB 3.375 grams IVPB once over 60 mins; (mix in NS 100 bp mL) Route: IVPB; Infused Over: 60 mins; Site: right antecubital; 18:39 Follow up: IV Status: Completed infusion bp Medication: 10:55 VIS not applicable for this client. bp Outcome: 16:52 Discharge ordered by . makayla 17:17 Decision to Hospitalize by Provider. makayla 20:10 Admitted to Med/surg accompanied by tech, via wheelchair, room 220, kj2 20:10 Condition: stable 20:11 Patient left the ED. 2 Signatures: Dispatcher [employer] EDCA Abdulkadir Valerio MD MD cha Harvey, Martha 1 Sandy Kelly, Roberto Grant RN, RN Ginette Houser RN RN kj2 Dayan Erazo RN RN ane
--- NOTE | 2024-05-07 16:53 | EDPHYS ---
Physician Documentation [facility] Name: Sacha Jones Age: 68 yrs Sex: Male : 1955 Arrival Date: 05/07/2024 Time: 10:48 Bed 7 Private MD: ED Physician Abdulkadir Valerio HPI: 05/07 16:04 This 68 yrs old Male presents to ER via EMS with complaints of Dizziness. makayla 16:04 The patient presents with dizziness, generalized weakness. Onset: The symptoms/episode makayla began/occurred today. Context: occurred while the patient was exercising. Modifying factors: The symptoms are alleviated by nothing, the symptoms are aggravated by nothing. Associated signs and symptoms: The patient has no apparent associated signs or symptoms. Severity of symptoms: At their worst the symptoms were mild in the emergency department the symptoms are unchanged. Patient's baseline: Neuro: alert and fully oriented. The patient has not experienced similar symptoms in the past. Historical: - Allergies: 10:53 No Known Allergies; bp - Home Meds: 10:53 allopurinol 100 mg Oral tablet once [Active]; amiodarone 200 mg Oral tab 1 tab once bp daily [Active]; atorvastatin 40 mg Oral tablet once [Active]; aspirin 81 mg Oral capsule once [Active]; carvedilol 12.5 mg Oral tab 1 tab once [Active]; Plavix 75 mg Oral tablet once [Active]; Entresto 97-103 mg Oral tab 1 tab 2 times per day [Active]; eplerenone 25 mg Oral tab 1 tab once daily [Active]; - PMHx: 10:53 Atrial fibrillation; V-tach; Myocardial infarction; kidney problems; Hypertensive bp disorder; defibrillator / pacemaker; cardiac ablation (Unknown); diabetes mellitus; - PSHx: 10:53 CABG; Coronary artery bypass graft; ablation; Defibrillator/pacemaker; Heart ablation; bp heart stent; - Immunization history:: Adult Immunizations up to date. - Infectious Disease History:: Denies. - Social history:: Smoking status: Patient denies any tobacco usage or history of. - Family history:: not pertinent. ROS: 16:04 Constitutional: Negative for fever, chills, and weight loss, Eyes: Negative for injury, makayla pain, redness, and discharge, ENT: Negative for injury, pain, and discharge, Neck: Negative for injury, pain, and swelling, Cardiovascular: Negative for chest pain, palpitations, and edema, Respiratory: Negative for shortness of breath, cough, wheezing, and pleuritic chest pain, Back: Negative for injury and pain, : Negative for injury, bleeding, discharge, and swelling, MS/Extremity: Negative for injury and deformity, Skin: Negative for injury, rash, and discoloration, Neuro: Negative for headache, weakness, numbness, tingling, and seizure, Psych: Negative for depression, anxiety, suicide ideation, homicidal ideation, and hallucinations, Allergy/Immunology: Negative for hives, rash, and allergies, Endocrine: Negative for neck swelling, polydipsia, polyuria, polyphagia, and marked weight changes, Hematologic/Lymphatic: Negative for swollen nodes, abnormal bleeding, and unusual bruising, 16:04 Abdomen/GI: Positive for abdominal pain, of the anterior aspect of left lateral abdomen, posterior aspect of left lateral abdomen and left lower quadrant, Exam: 16:04 Constitutional: This is a well developed, well nourished patient who is awake, alert, makayla and in no acute distress. Head/Face: Normocephalic, atraumatic. Eyes: Pupils equal round and reactive to light, extra-ocular motions intact. Lids and lashes normal. Conjunctiva and sclera are non-icteric and not injected. Cornea within normal limits. Periorbital areas with no swelling, redness, or edema. ENT: Nares patent. No nasal discharge, no septal abnormalities noted. Tympanic membranes are normal and external auditory canals are clear. Oropharynx with no redness, swelling, or masses, exudates, or evidence of obstruction, uvula midline. Mucous membranes moist. Neck: Trachea midline, no thyromegaly or masses palpated, and no cervical lymphadenopathy. Supple, full range of motion without nuchal rigidity, or vertebral point tenderness. No Meningismus. Chest/axilla: Normal chest wall appearance and motion. Nontender with no deformity. No lesions are appreciated. Cardiovascular: Regular rate and rhythm with a normal S1 and S2. No gallops, murmurs, or rubs. Normal PMI, no JVD. No pulse deficits. Respiratory: Lungs have equal breath sounds bilaterally, clear to auscultation and percussion. No rales, rhonchi or wheezes noted. No increased work of breathing, no retractions or nasal flaring. Back: No spinal tenderness. No costovertebral tenderness. Full range of motion. Male : Normal genitalia with no discharge or lesions. Skin: Warm, dry with normal turgor. Normal color with no rashes, no lesions, and no evidence of cellulitis. MS/ Extremity: Pulses equal, no cyanosis. Neurovascular intact. Full, normal range of motion. Neuro: Awake and alert, GCS 15, oriented to person, place, time, and situation. Cranial nerves II-XII grossly intact. Motor strength 5/5 in all extremities. Sensory grossly intact. Cerebellar exam normal. Normal gait. Psych: Awake, alert, with orientation to person, place and time. Behavior, mood, and affect are within normal limits. 16:04 ECG was reviewed by the Attending Physician. 16:04 Abdomen/GI: Inspection: distension, that is mild, Bowel sounds: normal, Palpation: mild abdominal tenderness, in the left lower quadrant, Liver: no appreciated palpable abnormalities, Hernia: not appreciated, Vital Signs: 10:52 BP 90 / 60; Pulse 67; Resp 16; Temp 98; Pulse Ox 100% ; bp 12:37 BP 107 / 79; Pulse 51; Resp 15; Pulse Ox 100% on R/A; hb 14:22 BP 135 / 73; Pulse 55; Resp 16; Pulse Ox 100% on R/A; hb 15:18 BP 127 / 75; Pulse 55; Resp 15; Pulse Ox 98% on R/A; hb 18:30 BP 133 / 85; Pulse 53; Resp 15; Temp 98; Pulse Ox 100% ; bp [place] Coma Score: 16:04 Eye Response: spontaneous(4). Motor Response: obeys commands(6). Verbal Response: makayla oriented(5). Total: 15. MDM: 10:56 Medical Screening Exam initiated makayla 16:07 Differential diagnosis: cardiac arrhythmia, CVA, generalized weakness, GI bleed, makayla hyperventilation, hypovolemia, idiopathic dizziness, near-syncope, , sepsis, syncope, TIA, vertigo. Data reviewed: vital signs, nurses notes, lab test result(s), EKG, radiologic studies, CT scan, plain films. Consideration of Admission/Observation Patient was admitted/placed on observation. Escalation of care including admission/observation considered. I considered the following discharge prescriptions or medication management in the emergency department Medications were administered in the Emergency Department. See MAR. Independent interpretation of the following test(s) in the Emergency Department EKG: See my EKG interpretation above. Test considered but Not performed: Ultrasound NO RENAL USG. Care significantly affected by the following chronic conditions: Diabetes, Hypertension, Chronic Kidney Disease, PM. 16:13 ED course: POOL BAÑUELOS ABOUT LABS, DC HOME WILL FOLLOW UP AND WILL NOTIFY DR MCKEON. 05/07 10:58 Order name: Basic Metabolic Panel; Complete Time: 15:53 05/07 10:58 Order name: CBC with Diff; Complete Time: 15:53 05/07 10:58 Order name: LFT's; Complete Time: 15:53 05/07 10:58 Order name: Magnesium; Complete Time: 15:53 05/07 10:58 Order name: NT PRO-BNP; Complete Time: 15:53 05/07 10:58 Order name: PT-INR; Complete Time: 15:53 05/07 10:58 Order name: Troponin HS; Complete Time: 15:53 05/07 10:58 Order name: Urinalysis w/ reflexes; Complete Time: 15:53 05/07 16:09 Order name: CPK; Complete Time: 16:52 05/07 10:58 Order name: XRAY Chest (1 view); Complete Time: 15:53 05/07 10:58 Order name: CT Head Brain wo Cont; Complete Time: 15:53 05/07 10:58 Order name: US Carotid Artery Bilateral; Complete Time: 15:53 05/07 15:59 Order name: CT Stone Protocol 05/07 10:58 Order name: Cardiac monitoring; Complete Time: 11:09 05/07 10:58 Order name: EKG - Nurse/Tech; Complete Time: 12:09 05/07 10:58 Order name: IV Saline Lock; Complete Time: 12:09 05/07 10:58 Order name: Labs collected and sent; Complete Time: 12:09 05/07 10:58 Order name: O2 Per Protocol; Complete Time: 11:09 05/07 10:58 Order name: O2 Sat Monitoring; Complete Time: 11:09 05/07 12:22 Order name: Labs - recollect needed: recollect all tubes; Complete Time: 13:21 bd EC:04 Rate is 53 beats/min. Rhythm is regular. QRS [place] is Normal. NE interval is prolonged makayla at 244 msec. QRS interval is normal. QT interval is normal. No Q waves. T waves are Normal. No ST changes noted. Clinical impression: Sinus bradycardia and No evidence of ischemia. Interpreted by me. Reviewed by me. Administered Medications: 12:09 Drug: NS 0.9% IV 1000 ml IV at 1000 ml once; to be given as a bolus over 60 minutes bp Route: IV; Rate: 1000 ml; Site: right forearm; 18:39 Follow up: IV Status: Completed infusion bp 17:30 Drug: Piperacillin-Tazobactam IVPB 3.375 grams IVPB once over 60 mins; (mix in NS 100 bp mL) Route: IVPB; Infused Over: 60 mins; Site: right antecubital; 18:39 Follow up: IV Status: Completed infusion bp Disposition Summary: 05/07/24 17:17 Hospitalization Ordered Notes: Hospitalization Status: Observation makayla Provider: Reinaldo Reddy cha Location: Telemetry/MedSurg (observation)(05/07/24 17:17) makayla Condition: Fair(05/07/24 17:17) makayla Problem: new(05/07/24 17:17) makayla Symptoms: have improved(05/07/24 17:17) makayla Bed/Room Type: Standard makayla Room Assignment: 220(05/07/24 19:05) ty Diagnosis - Diverticulitis of large intestine without perforation or abscess without bleeding - makayla proximal sigmoid - Other cholelithiasis without obstruction - 2.7 cm stone in the neck makayla - Acute kidney failure, unspecified - on chronic makayla - Heat exhaustion, unspecified(05/07/24 17:17) makayla - Weakness makayla - Presence of cardiac pacemaker makayla - Dehydration makayla Forms: - Medication Reconciliation Form makayla - SBAR form makayla - Leadership Thank You Letter makayla Signatures: Dispatcher [employer] EDMS Latanya Potter Corey, MD MD cha Williams, Irene, RN Roberto Kraft RN RN bp Yandell, Tylor ty Corrections: (The following items were deleted from the chart) 10:59 10:59 BASIC METABOLIC PANEL+C.LAB.BRZ ordered. EDMS EDMS 10:59 10:59 CBC+H.LAB.BRZ ordered. EDMS EDMS 10:59 10:59 HEPATIC FUNCTION+C.LAB.BRZ ordered. EDMS EDMS 10:59 10:59 MAGNESIUM+C.LAB.BRZ ordered. EDMS EDMS 10:59 10:59 PROBNP+C.LAB.BRZ ordered. EDMS EDMS 10:59 10:59 PROTIME (+INR)+COAG.LAB.BRZ ordered. EDMS EDMS 10:59 10:59 Troponin High Sensitivity+C.LAB.BRZ ordered. EDMS EDMS 10:59 10:59 Urinalysis+U.LAB.BRZ ordered. EDMS EDMS 10:59 10:59 Chest Single View+RAD.RAD.BRZ ordered. EDMS EDMS 10:59 10:59 Head Brain Wo Cont+CT.RAD.BRZ ordered. EDMS EDMS 10:59 10:59 Carotid Artery Bilateral+US.RAD.BRZ ordered. EDMS EDMS 17:13 16:52 Home makayla makayla 17:13 16:52 new makayla makayla 17:13 16:52 have improved makayla makayla 17:13 16:52 Fair makayla makayla 17:13 16:52 Heat exhaustion, unspecified makayla maakyla 17:13 16:52 Unspecified kidney failure - CHRONIC makayla makayla 17:13 16:52 Dizziness and giddiness makayla makayla 18:34 17:17 makayla bd 18:49 18:34 205 bd bd 19:05 18:49 bd ty
--- NOTE | 2024-05-07 17:05 | RAD REPORT ---
EXAMINATION: Stone Protocol CLINICAL INDICATION: Abdominal pain TECHNIQUE: CT abdomen and pelvis was performed, without IV contrast, as per department protocol. Oral contrast not given. Axial, sagittal and coronal reconstructions were obtained. One or more of the following dose reduction techniques were used: Automated exposure control, adjustment of the mA and k V according to the patient size, and iterative reconstruction. Unless otherwise specified, incidental findings do not require dedicated imaging follow-up. COMPARISON: No prior exam. FINDINGS: The lack of intravenous and oral contrast limits the sensitivity of this exam for evaluation of solid visceral organs, vascular structures, and bowel Renal arterial calcifications. Tiny calcification parenchyma right kidney. No hydronephrosis. A urete ral calculus is not seen. No bladder calculus. No hydronephrosis. Left renal cyst. The prostate gland is moderately enlarged. Bladder wall thickening. Probably related to a chronic out let obstruction. Liver, spleen, pancreas and adrenals grossly normal Diverticula stem from the colon. Moderate stranding adjacent to the proximal sigmoid colon. No free a ir. No abscess. Small umbilical hernia. Mild anterior subluxation L4 on L5. 2.7 cm stone within the neck of the gallbladder. Gallbladder wall does not appear thickened. 12 mm nodular opacity medial right lower lobe Large right inguinal hernia contains fat Normal appendix Small duodenal diverticulum Spondylosis lumbar spine results in spinal stenosis IMPRESSION: Moderate sigmoid diverticulitis. Large right inguinal hernia Cholelithiasis without evidence of cholecystitis 12 mm nodular opacity medial right lower lobe favored to be rounded atelectasis or inflammation. Neop lasm can have this appearance. It is recommended that the patient have a follow-up CT chest in 3 months.
[2024-05-07] MEDS ORDERED: PIPERACIL/TAZO 3.375 GM VIAL IV ONE (17:23)
[2024-05-07] MEDS ORDERED: NA CHLORIDE 0.9% 100 ML ONE (17:23)
[2024-05-07] MEDS ORDERED: ONDANSETRON 4 MG/2 ML VIAL IV PRN (19:38)
[2024-05-07] MEDS ORDERED: MORPHINE 2 MG/ML SYR IV PRN (19:38)
[2024-05-07] MEDS ORDERED: ACETAMINOPHEN 325 MG TABLET PO PRN (19:38)
[2024-05-07] MEDS: carvediloL 12.5 MG TAB PO SCH (19:38)
[2024-05-07] MEDS: SACUBITRIL/VALSARTAN 49/51 MG TAB PO SCH (20:30)
[2024-05-07 20:57] VITALS: BMI 30.7
[2024-05-07 21:13] VITALS: O2SAT 98
[2024-05-07] MEDS: NA CHLORIDE 0.9% 1,000 ML IV SCH (22:22)
[2024-05-08] MEDS: PIPER TAZO 3.375 GM in NA CHLORIDE 0.9% 100 ML IV SCH (00:29)
[2024-05-08 04:41] LABS: Absolute Eosinophils 0.3 K/uL (0-0.5); Absolute Lymphocytes (CBC) 1.2 K/uL (0.7-4.9); Absolute Monocytes 1.4 K/uL (0.1-1.3); Absolute Neutrophil 8.6 K/uL (1.8-8.0); Basophils % 0.4 % (0-1.3); Eosinophils % 2.4 % (0-4.4); Hematocrit 41.8 % (39.6-49.0); Hemoglobin 14.2 g/dL (13.6-17.9); Lymphocytes % 10.1 % (15.3-44.8); MCH 34.1 pg (27.0-35.0); MCV 100.1 fL (80-100); MPV 7.6 fL (7.6-11.3); Monocytes % 12.4 % (3.3-12.3); Neutrophils % 74.7 % (41.7-73.7); Nucleated Red Blood Cells % 0.1 % (0-0); Platelets 214 thou/uL (152-406); RBC Red Blood Cell Count 4.17 M/uL (4.33-5.43); Red Cell Distribution Width 14.7 % (12.1-15.2)
[2024-05-08 04:57] LABS: Anion Gap 9.5 mEq/L (5.0-15.0); Potassium 4.5 mEq/L (3.5-5.1)
[2024-05-08] MEDS: ASPIRIN 81 MG CHEWABLE TABLET PO SCH (09:00)
[2024-05-08] MEDS: FAMOTIDINE 20 MG/2 ML VIAL IV SCH (09:00)
[2024-05-08] MEDS: AMIODARONE HCL 200 MG TAB PO SCH ×2 (09:00)
[2024-05-08] MEDS: CLOPIDOGREL 75 MG TABLET PO SCH (09:00)
[2024-05-08 11:57] VITALS: BP 124/71; TEMP 98.1
--- NOTE | 2024-05-08 12:17 | EKG ---
Test Date: 2024-05-07 Test Time: 11:46:27 Tank Insulator Rubber: MAHENDRA MEASUREMENT RESULTS: Intervals: Rate: 53 CT: 244 QRSD: 182 QT: 502 QTc: 471 Eads: P: 56 CT: 244 QRS: 114 T: -24 INTERPRETIVE STATEMENTS: Sinus bradycardia with 1st degree AV block Nonspecific intraventricular block Abnormal ECG Compared to ECG 10/27/2023 08:24:29 First degree AV block now present Uncertain supraventricular rhythm no longer present Electronically Signed On 05-08-24 12:14:21 CDT by Magdiel Gibson
--- NOTE | 2024-05-08 21:19 | P.SSS ---
Patient History Date of Service: 05/08/24 Reason for admission: ABDOMEN PAIN History of Present Illness: HEIDI COMES TO ER FO LLQ ABDOMEN PAIN. HE HAS MODERATE DIVERTICULITIS ON CT. HE LOOKS WELL ON MY ER VISIT LAST NIGHT. Allergies No Known Allergies Allergy (Verified 05/08/24 04:01) Home medications list reviewed: Yes Home Medications: Allopurinol 100 mg PO BEDTIME 08/15/23 Eplerenone 25 mg PO DAILY 6PM 08/15/23 Sacubitril/Valsartan [Entresto 97 mg-103 mg Tablet] 0.5 tab PO BID 08/15/23 Carvedilol [Coreg] 12.5 mg PO BID 08/16/23 Atorvastatin Calcium [Lipitor] 40 mg PO BEDTIME #90 tab 08/18/23 Clopidogrel Bisulfate [Plavix] 75 mg PO DAILY #34 08/18/23 Amiodarone HCl [Cordarone*] 200 mg PO DAILY 10/27/23 Aspirin [Aspirin EC 81 MG] 1 tab PO DAILY 10/27/23 B,C/Ferrous Fum/FA/D3/Zinc Ox [Prorenal Multivitamin Tablet] 1 tab PO BEDTIME 10/27/23 Furosemide 20 mg PO DAILY #90 10/28/23 Cefuroxime [Ceftin*] 250 mg PO BID #14 tab 05/08/24 Metronidazole 500 mg PO TID #21 tab 05/08/24 Quercetin 1 tab PO DAILY 05/08/24 - Past Medical/Surgical History Has patient received pneumonia vaccine in the past: Yes Diabetic: No -: HTN -: afib/v-tach -: cardiac ablation -: ID -: kidney problems -: coronary artery bypass x1 stent -: sleep apnea -: pacemaker/defib -: watchman -: heart ablation - Family History Father -: Hypertension, Other (see notes) Notes: of copd Mother -: Hypertension - Social History Smoking Status: Never smoker Alcohol use: No CD- Drugs: No Caffeine use: No Place of Residence: Home Review of Systems 10-point ROS is otherwise unremarkable Physical Examination - Vital Signs Temperature: 98.1 F Blood Pressure: 124/71 Pulse: 60 Respirations: 14 Pulse Ox (%): 99 - Physical Exam General: Acute distress, Mild distress HEENT: Atraumatic, PERRLA, Mucous membr. moist/pink, EOMI, Sclerae nonicteric Neck: Supple, 2+ carotid pulse no bruit, No LAD, Without JVD or thyroid abnormality Respiratory: Clear to auscultation bilaterally, Normal air movement Cardiovascular: Regular rate/rhythm, Normal S1 S2 Gastrointestinal: Normal bowel sounds, No tenderness Musculoskeletal: No tenderness Integumentary: No rashes Neurological: Normal gait, Normal speech, Normal strength at 5/5 x4 extr, Normal tone, Normal affect Lymphatics: No axilla or inguinal lymphadenopathy - Diagnosis (Problem(s)) (1) Acute diverticulitis Status: Acute Plan: ABX IV ZOSYN HE IS STABLE. DC ON CEFTIN AND FLAGYL FU WITH BASE MANAGER LATER. (2) Acute on chronic renal insufficiency Status: Acute Plan: IV FLUIDS CREAT CAME DOWN FROM 2.5 TO . 2.1 THAT IS HIS BASELINE. - Disposition Disposition: ROUTINE DISCHARGE
== END 2024-05-08 14:59 | disposition home or self-care (01) ==
LOC: ER 10:48 → ERHOLD 17:19 → 2ND 19:19
PROVIDERS: ADMIT Internal Medicine; ATTEND Internal Medicine
DX: K57.92 Diverticulitis of intestine, part unspecified, without perforation or abscess without bleeding (principal); N18.9 Chronic kidney disease, unspecified; K80.80 Other cholelithiasis without obstruction; T67.5XXA Heat exhaustion, unspecified, initial encounter; E86.0 Dehydration; X30.XXXA Exposure to excessive natural heat, initial encounter; Y93.H9 Activity, other involving exterior property and land maintenance, building and construction; Y92.017 Garden or yard in single-family (private) house as the place of occurrence of the external cause; Z95.0 Presence of cardiac pacemaker
CPT/HCPCS: 36415; 70450; 71045; 74176; 76377; 80048; 80076; 81003; 82550; 83735; 83880; 84484; 85025; 85610; 93005; 93880; 96361; 96365; 99285; G0378; J2543; J7030